=== PATIENT | female | born 1995 | race Caucasian/White ===

== ENCOUNTER 2024-12-19 10:02 | Emergency (ER) | payer OTHER, SELFPAY ==
--- OUTSIDE RECORDS SUMMARY | 2015-10-07 10:10 | XMS_ITS | Encounter Summary ---
Author Organization [place] [address] Care Team Providers Care Events Intern Name Role Phone Stef Mclean DO, Viral Primary Care Provider [phone] Encounter Details Date Type Department Care Team (Latest Contact Info) Description 10/07/2015 10:10 AM EDT Hospital Encounter [facility] [address] [place] [phone] Left without seen Social History Tobacco Use Types Packs/Day Years Used Date Smoking Tobacco: Never Passive Smoke Exposure: Never Smokeless Tobacco: Never Alcohol Use Standard Drinks/Week Comments Not Currently 0 (1 standard drink = 0.6 oz pur e alcohol) [facility] Utilities Answer Date Recorded In the past 12 months has [employer], gas, oil, or water [employer] threatened to shut off services in your home? No 07/01/2023 Overall Financial Resource Strain (CARDIA) Answe r Date Recorded How hard is it for you to pa y for the very basics like food, housing, medical care, and heating? Not very hard 07/01/2023 PHQ-2 Answer Date Recorded PHQ-2 Total Score 0 09/01/2024 [facility] [place] of Occupat ional Health - Occupational Stress Questionnaire Answer Date Recorded Do you feel stress - tense, restless, nervous, or anxious, or unable to sleep at night because your mind is troubled all the time - these days? Not at all 07/01/2023 Exercise Vital Sign Answer Date Recorde d On average, how many days pe r week do you engage in moderate to strenuous exercise (like a brisk walk)? 0 days 07/01/2023 On average, how many minutes do you engage in exercise at this level? 0 min 07/01/2023 Hunger Vital Sign Answer Date Recorded Within the past 12 months, y ou worried that your food would run out before you got the money to buy more. Never true 07/01/19 24 Within the past 12 months, t he food you bought just didn't last and you didn't have money to get more. Never true 07/01/2023 [facility] IP Transportation Answer D ate Recorded In the past 12 months, has l ack of reliable transportation kept you from medical appointments, meetings, work or from getting things needed for daily living? No 07/01/2023 Sexually Active Control Partners Comments Yes Male Comments No Sex and Gender Information Value Date Recorded Sex Assigned at Not on file Legal Sex Female 1:40 AM EDT Gender Identity Not on file Sexual Orientation Not on file COVID-19 Exposure Response Date Recorded In the last 10 days, have yo u been in contact with someone who was confirmed or suspected to have Coronavirus/COVID-19? No / Unsure 06/21/2023 9:31 AM EST documented as of this encounter Functional Status * Cognitive and Functional Status Question Answer Date of Assessment Author Is the person deaf or does h e/she have serious difficulty hearing? No 06/19/2024 8:05 AM EST J Carlos Ross ace, RMA Is the person blind or does he/she have serious difficulty seeing even when wearing glasses? No 06/19/2024 8:05 AM EST J Carlos Babcock RMA Does this person have seriou s difficulty walking or climbing stairs? No 06/19/2024 8:05 AM EST J Carlos Babcock R MA Does this person have diffic ulty dressing or bathing? No 06/19/2024 8:05 AM J Carlos Mendez RMA * Alcohol Screening Score Answer Date of Assessment Author 0 06/30/2023 2:56 PM EDT Gabby Patton RN * Drug Screening Score Answer Date of Assessment Author 0 06/30/2023 2:56 PM Gabby Soriano RN * Question Answer Date of Assessment Author How often do you have a drin k containing alcohol? 0 06/30/2023 2:56 PM Jerry Soriano RN How many drinks containing alcohol do you have on a typical day when you are drinking? 0 06/30/2023 2:56 PM Jerry Soriano RN How often do you have six or more drinks on one occasion? 0 06/30/2023 2:56 PM Gabby Hughes RN AUDIT-C to Determine Rows 4-10 0 06/30/2023 2:56 PM Gabby Soriano RN * Is the person deaf or does he/she have serious difficulty hearing? Answer Date of Assessment Author No 10/02/2015 1:08 AM Makayla Jeong RN * Is the person blind or does he/she have serious difficulty seeing even when wearing glasses? Answer Date of Assessment Author No 10/02/2015 1:08 AM Makayla Jeong RN * Does this person have serious difficulty walking or climbing stairs? Answer Date of Assessment Author No 10/02/2015 1:08 AM Makayla Jeong RN * Does this person have difficulty dressing or bathing? Answer Date of Assessment Author No 10/02/2015 1:08 AM Makayla Jeong RN * Because of a physical, mental or emotional condition, does this person have difficulty doing errands alone such as visiting a doctor's office or shopping? Answer Date of Assessment Author No 10/02/2015 1:08 AM Makayla Jeong RN * PHQ-9 Total Score Answer Date of Assessment Author 0 09/01/2024 8:59 AM Sol Eric RMA * Question Answer Date of Assessment Author Little interest or pleasure in doing things 0 09/01/2024 8:59 AM EDT Deyanira House RMA Feeling down, depressed, or hopeless 0 09/01/2024 8:59 AM EDT Sol House RMA PHQ-2 Total Score 0 09/01/2024 8:59 AM EDSol Richmond RMA Trouble falling or staying asleep, or sleeping too much 3 03/10/2024 8:06 AM Melany Calvin MA Feeling tired or having little energy 3 03/10/2024 8:06 AM Melany Calvin MA Poor appetite or overeating 3 03/10/2024 8:06 AM Melany Calvin MA Feeling bad about yourself - or that you are a failure or have let yourself or your family down 3 03/10/2024 8:06 AM Melany Calvin MA Trouble concentrating on things, such as reading the newspaper or watching television 3 03/10/2024 8:06 AM Melany Calvin MA Moving or speaking so slowly that other people could have noticed. Or the opposite - being so fidgety or restless that you have been moving around a lot more than usual 3 03/10/2024 8:06 AM Melany Calvin MA Thoughts that you would be better off , or of hurting yourself in some way 0 03/10/2024 8:06 AM Melany Calvin MA If you checked off any problems, how difficult have these problems made it for you to do your work, take care of things at home, or get along with other people? Extremely difficult 03/10/2024 8:06 AM Melany Calvin MA * Question Answer Date of Assessment Author Feeling Nervous, Anxious, or on Edge 0 09/01/2024 8:59 AM EDSol Richmond RMA Not Being Able to Stop or Control Worrying 0 09/01/2024 8:59 AM EDILMAT Sol House RMA Worrying too Much About Different Things 0 09/01/2024 8:59 AM EDILMAT Sol House RMA Trouble Relaxing 0 09/01/2024 8:59 AM EDT Sol Landry RMA Being so Restless That it is Hard to Sit Still 0 09/01/2024 8:59 AM EDT Sol House RMA Becoming Easily Annoyed or Irritable 0 09/01/2024 8:59 AM EDT Sol House RMA Feeling Afraid as if Something Awful Might Happen 0 09/01/2024 8:59 AM EDT Sol House RMA KAREEN-7 Total Score 0 09/01/2024 8:59 AM EDT Sol House RMA * Suicide Severity Rating Answer Date of Assessment Author No Risk 12/17/2024 1:26 PM EDT Nazia Sutton RN * [place] Suicide Severity Rating Scale (Q shift for moderate and high) Question Answer Date of Assessment Author 1. In the past month, have y ou wished you were or wished you could go to sleep and not wake up? 0 12/17/2024 1:26 PM EDT Nazia Sutton RN 2. In the past month, have y ou actually had any thoughts of killing yourself? (If no, skip to question 6) 0 12/17/2024 1:26 PM EDILMAT Nazia Sutton RN 6. Have you ever done anythi ng, started to do anything, or prepared to do anything to end your life? 0 12/17/2024 1:26 PM EDT Nazia Sutton RN documented as of this encounter Mental Status * Cognitive and Functional Status Question Answer Entry Date Author Because of a physical, menta l or emotional condition, does this person have difficulty doing errands alone such as visiting a doctor's office or shopping? No 06/19/2024 8:05 AM J Carlos Mendez RMA Because of a physical, menta l or emotional condition, does this person have serious difficulty concentrating, remembering or making decisions? No 06/19/2024 8:05 AM J Carlos Mendez R MA * Because of a physical, mental or emotional condition, does this person have serious difficulty concentrating, remembering or making decisions? Answer Entry Date Author No 10/02/2015 1:08 AM EDT Makayla Mills RN documented in this encounter Plan of Treatment Upcoming Encounters Date Type Department Care Team (Late st Contact Info) Description 12/27/2024 8:30 AM EDT Appointment [facility] [place] [address] Jessica Leach, L[employer] F[employer]ER [address] [place] [address] Marylu Gates PA-C [address] [facility] [address] [place] [address] 12/29/2024 8:40 AM EDT Office Visit [facility] [address] [facility] [address] [place] [id number] Jonathan Saldana, OD [address] [place] [address] 12/29/2024 3:00 PM EDT Appointment [facility] [address] [place], [place] [id number] Jessica Leach APRN [address] [place] [address] 03/09/2025 8:00 AM EST Office Visit [facility] [address] [facility] [place] [address] Jessica Leach APRN [address] [facility] [address] [place] [address] documented as of this encounter Goals Goal Patient Goal Type Associated Problems Recent Progress Patient-Stated? Author Blood Pressure < 140/90 Blood Pressure 100/60(2024 2:54 PM EDT) Gisselle Henderson, JESSA Maintain a healthy diet, exercise regularly and maintain an ideal body weight General No Sol House, RMMarlyn documented as of this encounter Visit Diagnoses Not on filedocumented in this encounter Additional Health Concerns Infection Onset Date Last Indicated Resolved Time R/O COVID-05/10/2021 05/10/2021 05/10/2021 9:26 PM EST COVID-19 05/10/2021 05/10/2021 06/09/2021 10:1 2 PM EST documented as of this encounter Care Teams Events Intern Relationship Specialty Start Date End Date Bharathi Finch DO [address] [place] [phone] PCP - General 12/16/10 05/18/16 documented as of this encounter
--- OUTSIDE RECORDS SUMMARY | 2024-11-29 08:00 | XMS_ITS | Encounter Summary ---
Author [place] [address] Care Team Providers Care Participant Administrator Name Role Phone Shameka Reese MD Primary Care Provider [phone] Reason for Referral * Consultation (Routine) - Authorization Not Needed Specialty Diagnoses / Procedures Referred By Vineet tanner Referred To Contact Neurology Diagnoses Migraine without aura and without status migrainosus, not intractable Procedures MD OFFICE/OUTPATIENT NEW MODERATE MDM 45 MINUTES Jim Bain APRN [address] [place] [address] Phone: tel: fax: [facility] Neurology [address] [place] [phone] Phone: tel: fax: Referral ID Status Reason Start Date Expiration Date Visits Requested Visits Authorized [id number] Authorization Not Needed 11/29/2024 11/29/2025 99 99 Reason for Visit * Reason Comments Annual Exam Anxiety Depression Gastroesophageal Reflux Migraine Seeking letter for m lilly and new neuro referral Weight Management Encounter Details Date Type Department Care Team (Late st Contact Info) Description 11/29/2024 8:00 AM EDT Office Visit [facility] [address] [phone] Jim Bain, CERTIFIED PERSONAL FINANCE COUNSELOR [address] [place] [address] Annual physical exam (Primary Dx); Migraine without aura and without status migrainosus, not intractable; PTSD (post-traumatic stress disorder); Nightmares; Adjustment disorder with mixed anxiety and depressed mood; Nausea; Obesity, Class III, BMI 40-49.9 (morbid obesity) Social History Tobacco Use Types Packs/Day Years Used Date Smoking Tobacco: Never Passive Smoke Exposure: Never Smokeless Tobacco: Never Alcohol Use Standard Drinks/Week Comments Not Currently 0 (1 standard drink = 0.6 oz pur e alcohol) [facility] Utilities Answer Date Recorded In the past 12 months has th e electric, gas, oil, or water company threatened to shut off services in your home? No 07/01/2023 Overall Financial Resource Strain (CARDIA) Answe r Date Recorded How hard is it for you to pa y for the very basics like food, housing, medical care, and heating? Not very hard 07/01/2023 PHQ-2 Answer Date Recorded PHQ-2 Total Score 0 09/01/2024 [facility] - Occupational Stress [...] money to get more. Never true 07/01/2023 [facility] IP Transportation Answer D ate Recorded [...] on file Sexual Orientation Not on file documented as of this encounter Last Filed Vital Signs Vital Sign Reading Time Taken Comments Blood Pressure 104/62 11/29/2024 7:48 AM EDT Pulse - - Temperature 36.8 C (98.2 F) 11/29/2024 7:48 AM EDT Respiratory Rate - - Oxygen Saturation - - Inhaled Oxygen Concentration - - Weight 100.2 kg (221 lb) 11/29/2024 7:48 AM EDT Height 149.9 cm (4' 11 ) 11/29/2024 7:48 AM EDT Body Mass Index 44.64 11/29/2024 7:48 AM EDT documented in this encounter Functional Status * Is the person deaf or does he/she have serious difficulty hearing? Answer Date of Assessment Author No 06/19/2024 8:05 AM J Carlos Mendez RMA * Is the person blind or does he/she have serious difficulty seeing even when wearing glasses? Answer Date of Assessment Author No 06/19/2024 8:05 AM J Carlos Mendez RMA * Does this person have serious difficulty walking or climbing stairs? Answer Date of Assessment Author No 06/19/2024 8:05 AM J Carlos Mendez RMA * Does this person have difficulty dressing or bathing? Answer Date of Assessment Author No 06/19/2024 8:05 AM J Carlos Mendez RMA * Because of a physical, mental or emotional condition, does this person have difficulty doing errands alone such as visiting a doctor's office or shopping? Answer Date of Assessment Author No 06/19/2024 8:05 AM J Carlos Mendez RMA documented as of this encounter Mental Status * Because of a physical, mental or emotional condition, does this person have serious difficulty concentrating, remembering or making decisions? Answer Entry Date Author No 06/19/2024 8:05 AM J Carlos Mendez RMA documented in this encounter Ordered Prescriptions Prescription Sig Dispense Quantity Refills Last Filled Start Date End Date ondansetron (ZOFRAN) 4 mg Oral TabletIndications: Nausea Take 1 Tablet by mouth every 4 hours as needed for Nausea. 60 Tablet 5 11/29/2024 desvenlafaxine succinate (PRISTIQ) 50 mg Oral Tablet Sustained Release 24 hrIndications:PTSD (post-traumatic stress disorder),Nightmar es,Adjustment disorder with mixed anxiety and depressed mood Take 1 Tablet by mouth daily. 90 Tablet 3 11/29/2024 busPIRone (BUSPAR) 10 mg Oral TabletIndications: PTSD (post-traumatic stress disorder),Nightmar es,Adjustment disorder with mixed anxiety and depressed mood Take 1 Tablet by mouth 2 times daily. For anxiety 60 Tablet 5 11/29/2024 tirzepatide, weight loss, 7.5 mg/0.5 mL SubQ SolutionIndication s:Obesity, Class III, BMI 40-49.9 (morbid obesity) Inject 7.5 mg under the skin once a week. 3 mL 1 11/29/2024 rimegepant (NURTEC ODT) 75 mg Oral Tablet, Rapid DissolveIndication s:Migraine without aura and without status migrainosus, not intractable Dissolve 1 Tablet by mouth every 48 hours. 18 Tablet 5 11/29/2024 5 documented in this encounter Progress Notes * Jim Bain APRN - 11/29/2024 8:00 AM EDT Vitals: 11/29/24 0748 BP: 104/62 Temp: 98.2 ??F (36.8 ??C) TempSrc: Forehead Weight: 221 lb (100.2 kg) Height: 4' 11 (1.499 m) Body mass index is 44.64 kg/m??. SUBJECTIVE: Chief Complaint Patient presents with Annual Exam Anxiety Depression Gastroesophageal Reflux Migraine Seeking letter for migraine and new neuro referral Weight Management HPI: Well Adult: Subjective Ms. Padgett is a 29 y.o. female here for an annual wellness visit. Diet: low calorie Exercise: walking, weight lifting Activities of Daily Living: Functional Level: Self-care ADL Limitations: none Social Interaction Screen: Do you have concerns about issues that may impact social interaction such as developmental or behavioral/mental health conditions? no Health Maintenance Due Topic Date Due COVID-19 Vaccine ( season) Never done Cervical Cancer Screening 04/09/2024 Health Maintenance Topic Date Due COVID-19 Vaccine () Never done Cervical Cancer Screening 04/09/2024 Influenza Vaccine (1) 12/18/2024 Annual Wellness Exam 03/10/2025 DTaP/TDaP/Td (9 - Td or Tdap) 06/15/2027 Hepatitis B Vaccine Completed Meningococcal B Vaccine Aged Out Pneumococcal Vaccine 0-49 Aged Out Immunization History Administered Date(s) Administered DTaP 1994, 1994, 1994, 03/25/1995, 03/22/1998 HPV Quadrivalent 07/16/2008, 10/25/2008, 05/23/2012 Hepatitis B, Unspecified Formulation 1994, 1994, 1994 HiB, Unspecified Formulation 1994, 1994, 1994, 03/25/1995 IPV 1994, 1994, 1994, 03/22/1998 Influenza Vaccine, Unspecified Formulation 01/18/2010 MMR 03/25/1995, 03/22/1998, 08/14/2017 Td, Unspecified Formulation 10/13/2004 Tdap 08/30/2015, 10/09/2015, 11/08/2015, 06/15/2017 Patient Active Problem List Diagnosis PCOS (polycystic ovarian syndrome) Morbid obesity with BMI of 50.0-59.9, adult (HCC) ASD (atrial septal defect) Sinus tachycardia Renal calculus, right Hydronephrosis of right kidney Pyelonephritis Thyroid cyst Supervision of other normal , antepartum History of shoulder dystocia in prior History of Hx of maternal laceration, 4th degree, currently History of gestational hypertension Maternal congenital cardiac anomaly, antepartum Uterine contractions Normal labor and delivery Gestational hypertension, third trimester Single delivery by section Ureter, calculus Dietary counseling and surveillance Morbid obesity (HCC) S/P laparoscopic sleeve gastrectomy Gastroesophageal reflux disease without esophagitis Past Medical History: Diagnosis Date ASD (atrial septal defect) 06/01/2017 resolved Depression GERD (gastroesophageal reflux disease) Other seasonal allergic rhinitis PCOS (polycystic ovarian syndrome) Pneumonia 03/11 Renal calculus, right 11/19/2017 Urinary tract infection history of Vulval or perineal trauma during delivery with problem 05/25/2017 Past Surgical History: Procedure Laterality Date SECTION N/A 08/12/2017 PRIMARY SECTION VIA LOW TRANSVERSE UTERINE INCISION AT 1542; Surgeon: iLsa Hannon MD; Location: [facility]; Service: Gynecology SECTION N/A 10/05/2021 REPEAT SECTION. skin incision at 1037, uterine at 1040, delivered at 1041, placenta [id number].; Surgeon: Marline Byrnes MD; Location: [facility]; Service: Obstetrics CYSTOSCOPY Right 11/19/2017 CYSTOSCOPY RIGHT STENT INSERTION; Surgeon: Sam Daily MD; Location: [facility]; Service: Urology CYSTOSCOPY Right 12/25/2021 cystoscopy right stent removal ; Surgeon: Juan Mackenzie MD; Location: [facility]; Service:Urology GASTRECTOMY N/A 06/30/2023 Robotic sleeve gastrectomy; Surgeon: Lula Ruvalcaba MD; Location: [facility]; Service: General TONSILLECTOMY 2000 TONSILLECTOMY 2003 VAGINA SURGERY 11/06/2015 repair of third degree obstetrical laceration Allergies Allergen Reactions Suprax [Cefixime] Hives Brethine [Terbutaline] Palpitations It made me out of it Nsaids (Non-Steroidal Anti-Inflammatory Drug) Other (See Comments) HX GASTRIC SLEEVE! Current Outpatient Medications on File Prior to Visit Medication Sig Dispense Refill albuterol (PROVENTIL HFA;VENTOLIN HFA) 90 mcg/actuation Inhl HFA Aerosol Inhaler Inhale 2 Puffs into the lungs every 4 hours as needed for Wheezing. 1 Each 2 ergocalciferol (VITAMIN D) 1,250 mcg (50,000 unit) Oral Capsule Take 1 Capsule by mouth once a week. 12 Capsule 3 MULTIVITAMIN ORAL Take by mouth. pantoprazole (PROTONIX) 40 mg Oral Tablet, Delayed Release (E.C.) Take 1 Tablet by mouth 2 times daily. 180 Tablet 2 No current facility-administered medications on file prior to visit. Social History Socioeconomic History Marital status: Spouse name: None Number of children: None Years of education: None Highest education level: None Tobacco Use Smoking status: Never Passive exposure: Never Smokeless tobacco: Never Vaping Use Vaping status: Never Used Substance and Sexual Activity Alcohol use: Not Currently Drug use: No Sexual activity: Yes Partners: Male Social History Narrative Merged History Encounter Social Drivers of Health Financial Resource Strain: Low Risk (07/01/2023) Overall Financial Resource Strain (CARDIA) Difficulty of Paying Living Expenses: Not very hard Food Insecurity: No Food Insecurity (07/01/2023) Hunger Vital Sign Worried About Running Out of Food in the Last Year: Never true Ran Out of Food in the Last Year: Never true Transportation Needs: No Transportation Needs (07/01/2023) [facility] IP Transportation In the past 12 months, has lack of reliable transportation kept you from medical appointments, meetings, work or from getting things needed for daily living?: No Physical Activity: Inactive (07/01/2023) Exercise Vital Sign Days of Exercise per Week: 0 days Minutes of Exercise per Session: 0 min Stress: No Stress Concern Present (07/01/2023) [facility] - Occupational Stress Questionnaire Feeling of Stress : Not at all Received from [facility] Intimate Partner Violence Family History Problem Relation Age of Onset Eclampsia Mother Spont Abortions Mother Stroke Mother Diabetes Father Hypertension Father Mult Sclerosis Maternal Grandfather Depression Paternal Grandmother brain ca Cancer Paternal Grandmother Diabetes Paternal Grandfather Heart Disease Paternal Grandfather Anesth Problems Neg Hx No results found. No results found for this visit on 11/29/24. Patient Care Team: Shameka Reese MD as PCP - General (Family Medicine) Lab Results Component Value Date WBC 3.6 (L) 11/12/2023 HGB 14.4 11/12/2023 HCT 43.1 11/12/2023 PLT 229 11/12/2023 CHOLESTEROL 172 01/14/2023 TRIG 124 01/14/2023 HDL 32 (L) 01/14/2023 LDLCALC 117 (H) 01/14/2023 ALT 21 11/12/2023 AST 19 11/12/2023 NA 138 11/12/2023 K 4.1 11/12/2023 CL 108 (H) 11/12/2023 CREATININE 0.67 11/12/2023 BUN 11 11/12/2023 CO2 21 (L) 11/12/2023 TSH 1.930 04/09/2023 INR 0.92 10/04/2021 GLU 102 (H) 11/12/2023 HGBA1C 5.2 01/14/2023 TSHREFLEX 2.600 04/30/2022 Additional issues addressed today: MIGRAINE Acute migraine last 1-2 day. Photophobia and nausea. Pain is sharp. Pain severe and constant. Med'sno help. Pain better in dark. ANXIETY Anxiety is relatively controlled. Mood is stable. Sleep is stable. No SI/HI. DEPRESSION Depression is relatively stable. Mood is stable. Sleep is stable. No SI/HI. WEIGHT MANAGEMENT Wt Readings from Last 3 Encounters: 11/29/24 221 lb (100.2 kg) 10/06/24 229 lb (103.9 kg) 09/01/24 229 lb (103.9 kg) Review of Systems Constitutional: Negative for chills and fever. HENT: Negative for congestion, ear discharge and ear pain. Eyes: Negative for pain, discharge and itching. Respiratory: Negative for cough, shortness of breath and wheezing. Cardiovascular: Negative for chest pain and palpitations. Gastrointestinal: Negative for abdominal distention and abdominal pain. Genitourinary: Negative for difficulty urinating, dysuria and hematuria. Musculoskeletal: Negative for arthralgias, back pain and gait problem. Skin: Negative for rash and wound. Neurological: Positive for headaches. Negative for dizziness and light-headedness. Psychiatric/Behavioral: The patient is not nervous/anxious. OBJECTIVE: Physical Exam Constitutional: General: She is not in acute distress. Appearance: She is well-developed. She is not diaphoretic. HENT: Head: Normocephalic and atraumatic. Right Ear: External ear normal. Left Ear: External ear normal. Nose: Nose normal. Mouth/Throat: Pharynx: No oropharyngeal exudate. Eyes: General: Right eye: No discharge. Left eye: No discharge. Conjunctiva/sclera: Conjunctivae normal. Pupils: Pupils are equal, round, and reactive to light. Neck: Vascular: No JVD. Cardiovascular: Rate and Rhythm: Normal rate and regular rhythm. Heart sounds: Normal heart sounds. No murmur heard. Pulmonary: Effort: Pulmonary effort is normal. No respiratory distress. Breath sounds: Normal breath sounds. No wheezing or rales. Chest: Chest wall: No tenderness. Abdominal: General: Bowel sounds are normal. There is no distension. Palpations: Abdomen is soft. There is no mass. Tenderness: There is no abdominal tenderness. There is no guarding or rebound. Musculoskeletal: General: Normal range of motion. Cervical back: Normal range of motion and neck supple. Skin: General: Skin is warm and dry. Findings: No rash. Neurological: Mental Status: She is alert and oriented to person, place, and time. Psychiatric: Behavior: Behavior normal. Thought Content: Thought content normal. Judgment: Judgment normal. Assessment & Plan Annual physical exam Orders: CBC; Future COMPREHENSIVE METABOLIC PANEL; Future HEMOGLOBIN A1C; Future LIPID SCREEN; Future THYROID STIMULATING HORMONE; Future Migraine without aura and without status migrainosus, not intractable Orders: rimegepant (NURTEC ODT) 75 mg Oral Tablet, Rapid Dissolve; Dissolve 1 Tablet by mouth every 48 hours. AMB REFERRAL TO NEUROLOGY ketorolac (TORADOL) injection 60 mg PTSD (post-traumatic stress disorder) -Stable. Continue meds. Orders: busPIRone (BUSPAR) 10 mg Oral Tablet; Take 1 Tablet by mouth 2 times daily. For anxiety desvenlafaxine succinate (PRISTIQ) 50 mg Oral Tablet Sustained Release 24 hr; Take 1 Tablet by mouth daily. Nightmares Orders: busPIRone (BUSPAR) 10 mg Oral Tablet; Take 1 Tablet by mouth 2 times daily. For anxiety desvenlafaxine succinate (PRISTIQ) 50 mg Oral Tablet Sustained Release 24 hr; Take 1 Tablet by mouth daily. Adjustment disorder with mixed anxiety and depressed mood Orders: busPIRone (BUSPAR) 10 mg Oral Tablet; Take 1 Tablet by mouth 2 times daily. For anxiety desvenlafaxine succinate (PRISTIQ) 50 mg Oral Tablet Sustained Release 24 hr; Take 1 Tablet by mouth daily. Nausea Orders: ondansetron (ZOFRAN) 4 mg Oral Tablet; Take 1 Tablet by mouth every 4 hours as needed for Nausea. Obesity, Class III, BMI 40-49.9 (morbid obesity) Orders: tirzepatide, weight loss, 7.5 mg/0.5 mL SubQ Solution; Inject 7.5 mg under the skin once a week. -Patient with history of recurrent migraines, would benefit from working from home. documented in this encounter Miscellaneous Notes * Addendum Note - Digna Sun MA - 11/29/2024 8:00 AM EDTAddended by: DIGNA SUN on: 11/29/2024 03:17 PM Modules accepted: Orders documented in this encounter Plan of Treatment Upcoming Encounters Date Type Department Care Team (Late st Contact Info) Description 12/27/2024 8:30 AM EDT Appointment [facility] [address] [place], [place] [id number] Jessica Leach, CERTIFIED PERSONAL FINANCE COUNSELOR [address] [facility] [address] [place] [address] Marylu Gates PA-C [address] [facility] [address] [place] [address] 12/29/2024 8:40 AM EDT Office Visit [facility] [address] [place] [address] [place] [phone] Jonathan Saldana, OD [address] [place], [place] [id number] 12/29/2024 3:00 PM EDT Appointment [facility] [address] [place] [address] Jessica Leach, CERTIFIED PERSONAL FINANCE COUNSELOR [address] [facility] [address] [place], [place] [phone] 03/09/2025 8:00 AM EST Office Visit [facility] [address] [place], [place] [id number] Jessica Leach, CERTIFIED PERSONAL FINANCE COUNSELOR [address] [id number] Scheduled Referrals Name Type Priority Associated Diagnoses Orde r Schedule AMB REFERRAL TO NEUROLOGY Outpatient Referral Routine Migraine without aura and without status migrainosus, not intractable Ordered: 11/29/2024 documented as of this encounter Goals Goal Patient Goal Type Associated Problems Recent Progress Patient-Stated? Author Blood Pressure < 140/90 Blood Pressure 100/60(2024 2:54 PM EDT) Gisselle [place] CCMA Maintain a healthy diet, exercise regularly and maintain an ideal body weight General [facility] RMA documented as of this encounter Procedures Procedure Name Priority Date/Time Associated Diagnosis Comments CBC Routine 11/29/2024 8:17 AM EDT Annual physical exam THYROID STIMULATING HORMONE Routine 11/29/2024 8:17 AM EDT Annual physical exam HEMOGLOBIN A1C Routine 11/29/2024 8:17 AM EDT Annual physical exam LIPID SCREEN Routine 11/29/2024 8:17 AM EDT Annual physical exam COMPREHENSIVE METABOLIC PANEL Routine 11/29/2024 8:17 AM EDT Annual physical exam documented in this encounter Results * THYROID STIMULATING HORMONE (11/29/2024 8:17 AM EDT) TSH 1.690 0.270 - 4.200 mcIU/mL 11/29/2024 6:23 PM EDT [facility] Blood VENOUS BLOOD / Unknown Venipuncture / Unknown 11/29/2024 8:17 AM EDT 11/29/2024 8:17 AM EDT Narrative [facility] - 11/29/2024 6:23 PM EDT Ingestion of abhinav doses of biotin (>5 mg/day) taken within 8 hours of drawing blood sample can interfere with this immunoassay test. us Jim Bain APRN CHEMISTRY ORDERABLES Final R es[facility] [address] [facility] , [place] [address] * (ABNORMAL) LIPID SCREEN (11/29/2024 8:17 AM EDT) Cholesterol 184 <200 mg/dL 11/29/2024 6:[address] [facility] Comment: < 200 Desirable 200 - 239 Borderline High >= 240 High Triglyceride 64 <150 mg/dL 11/29/2024 6:[address] [facility] Comment: < 150 Normal 150 - 199 Borderline High 200 - 499 High >= 500 Very High HDL 37(L) >=40 mg/dL 11/29/2024 6:23 PM EDT [facility] Comment: > 60 Optimal 40 - 60 Acceptable < 40 Low LDL Calculated 135(H) <100 mg/dL 11/29/2024 6:23 PM EDT [facility] Comment: < 100 Optimal 100 - 129 Near or above optimal 130 - 159 Borderline High 160 - 189 High >= 190 Very High The National Institutes of Health (NIH) equation is used for all lipid panels that report calculated LDL (LDL-C). Non-HDL-C Calculated 147(H) <=129 mg/dL 11/29/2024 6:23 PM EDT [facility] Comment: <130 Desirable 130-159 Above Desirable 160-189 Borderline High 190-219 High >= 220 Very High Fasting Specimen? Unknown None 025 6:23 PM EDT [facility] Blood VENOUS BLOOD / Unknown Venipuncture / Unknown 11/29/2024 8:17 AM EDT 11/29/2024 8:17 AM EDT Jim Bain CERTIFIED PERSONAL FINANCE COUNSELOR CHEMISTRY ORDERABLES Final R esult [facility] [address] [facility] , [place] [address] * HEMOGLOBIN A1C (11/29/2024 8:17 AM EDT) Hgb A1C 4.8 4.2 - 5.6 % 11/29/2024 5:12 PM EDT [facility] Est. Avg Glucose 91 mg/dL 11/29/2024 5:12 PM EDT [facility] Blood VENOUS BLOOD / Unknown Venipuncture / Unknown 11/29/2024 8:17 AM EDT 11/29/2024 8:17 AM EDT Narrative [facility] - 11/29/2024 5:12 PM EDT REFERENCE RANGE: Normal: 4.0-5.6% Pre-diabetes: 5.7-6.4% Provisional diagnosis of diabetes: >6.4% Hgb F>10% and anything which shortens red cell survival, such as hemolytic anemia, or unstable hemoglobin variants such as HbSS, HbSC, or HbCC, will lower the HbA1c value associated with a given level of glycemic control. us Jim Bain CERTIFIED PERSONAL FINANCE COUNSELOR CHEMISTRY ORDERABLES Final R esult [facility] [address] [facility] , [address] [place] [id number] * COMPREHENSIVE METABOLIC PANEL (11/29/2024 8:17 AM EDT) Sodium 137 136 - 145 mmol/L 11/29/2024 6:23 PM EDT [facility] Potassium 3.8 3.5 - 5.0 mmol/L 11/29/2024 6:23 PM EDT [facility] Chloride 103 98 - 107 mmol/L 11/29/2024 6:23 PM EDT [facility] Total CO2 23 22 - 29 mmol/L 11/29/2024 6:23 PM EDT [facility] Anion Gap 11 7 - 16 mmol/L 11/29/2024 6:23 PM EDT [facility] Calcium 8.8 8.6 - 10.4 mg/dL 11/29/2024 6:23 PM EDT [facility] Glucose Lvl 72 70 - 99 mg/dL 11/29/2024 6:23 PM EDT [facility] BUN 8 6 - 20 mg/dL 11/29/2024 6:23 PM EDT [facility] Creatinine 0.78 0.51 - 1.30 mg/dL 11/29/2024 6:23 PM EDT [facility] Albumin 4.1 3.5 - 5.2 gm/dL 11/29/2024 6:23 PM EDT [facility] Total Protein 6.9 6.4 - 8.3 gm/dL 11/29/2024 6:23 PM EDT [facility] Bili Total 0.6 0.2 - 1.3 mg/dL 11/29/2024 6:23 PM EDT [facility] ALT 8 <=41 U/L 11/29/2024 6:23 PM EDT [facility] AST 17 <=40 U/L 11/29/2024 6:23 PM EDT [facility] Alk Phos 57 36 - 123 U/L 11/29/2024 6:23 PM EDT [facility] eGFR (CKD-EPIcr 2020) 104 >=60 mL/min/1.7 3 m2 11/29/2024 6:23 PM EDT [facility] Comment:Estimated GFR was ca lculated using the CKD-EPIcr (2020) equation refit without race. The equation is recommended by the National Kidney Foundation - [employer] [employer] Neph[employer] Task Force. Blood VENOUS BLOOD / Unknown Venipuncture / Unknown 11/29/2024 8:17 AM EDT 11/29/2024 8:17 AM EDT us Jim Bain CERTIFIED PERSONAL FINANCE COUNSELOR CHEMISTRY ORDERABLES Final R esult [facility] [address] [facility] , [place] [address] * CBC (11/29/2024 8:17 AM EDT) WBC 4.6 3.7 - 10.3 x10(3)/mcL 11/29/2024 4:50 PM EDT [facility] RBC 4.55 3.90 - 5.20 x10(6)/mcL 11/29/2024 4:50 PM EDT [facility] Hgb 13.7 11.2 - 15.7 g/dL 11/29/2024 4:50 PM EDT [facility] Hct 41.9 34.0 - 45.0 % 11/29/2024 4:50 PM EDT [facility] MCV 92.1 80.0 - 100.0 fL 11/29/2024 4:50 PM EDT [facility] MCH 30.1 26.0 - 34.0 pg 11/29/2024 4:50 PM EDT [facility] MCHC 32.7 30.7 - 35.5 g/dL 11/29/2024 4:50 PM EDT [facility] RDW 12.4 <=14.9 % 11/29/2024 4:50 PM EDT [facility] Platelet 241 155 - 369 x10(3)/mcL 11/29/2024 4:50 PM EDT [facility] MPV 10.5 8.8 - 12.5 fL 11/29/2024 4:50 PM EDT [facility] Blood VENOUS BLOOD / Unknown Venipuncture / Unknown 11/29/2024 8:17 AM EDT 11/29/2024 8:17 AM EDT Jim Bain CERTIFIED PERSONAL FINANCE COUNSELOR HEMATOLOGY ORDERABLES Final Result [facility] [address] [facility] , [place] [address] documented in this encounter Visit Diagnoses Diagnosis Annual physical exam- Primary Routine general medical examination at a health care facility Migraine without aura and without status migrainosus, not intractable Migraine without aura, without mention of intractable migraine without mention of status migrainosus PTSD (post-traumatic stress disorder) Posttraumatic stress disorder Nightmares Other dysfunctions of sleep stages or arousal from sleep Adjustment disorder with mixed anxiety and depressed mood Nausea Nausea alone Obesity, Class III, BMI 40-49.9 (morbid obesity) Morbid obesity documented in this encounter Administered Medications Inactive Administered Medications - up to 1 most recent administrations Medication Order MAR Action Action Date Dose Rate Site ketorolac (TORADOL) injection 60 mg 60 mg, Intramuscular, ONCE, 1 dose, On Wed11/29/24 at 0815, For IM Administration: Give undiluted, slowly and deeply into the muscle., Dx: 1. Migraine without aura and without status migrainosus, not intractableIndications:M igraine without aura and without status migrainosus, not intractable Given 11/29/2024 8:18 AM EDT 60 mg Right Upper Outer Quadrant documented in this encounter Discontinued Medications Medication Sig Discontinue Reason Start Date End Da te tirzepatide, weight loss, (ZEPBOUND) 5 mg/0.5 mL SubQ Pen Injector Inject 5 mg under the skin once a week. Dose adjustment 10/30/2024 11/29/2024 busPIRone (BUSPAR) 10 mg Oral TabletIndications:PTSD (post-traumatic stress disorder),Nightmares,Adj ustment disorder with mixed anxiety and depressed mood Take 1 Tablet by mouth 2 times daily. For anxiety Reorder 08/24/2024 11/29/2024 desvenlafaxine succinate (PRISTIQ) 50 mg Oral Tablet Sustained Release 24 hrIndications:PTSD (post-traumatic stress disorder),Nightmares,Adj ustment disorder with mixed anxiety and depressed mood Take 1 Tablet by mouth daily. Reorder 08/24/2024 11/29/2024 ondansetron (ZOFRAN) 4 mg Oral TabletIndications:Nausea Take 1 Tablet by mouth every 4 hours as needed for Nausea. Reorder 10/06/2024 11/29/2024 rimegepant (NURTEC ODT) 75 mg Oral Tablet, Rapid DissolveIndications:Migr shauna without aura and without status migrainosus, not intractable Dissolve 1 Tablet by mouth every 48 hours. Reorder 10/06/2024 11/29/2024 documented as of this encounter Historical Medications * This list may reflect changes made after this encounter. ZEPBOUND 5 mg/0.5 mL SubQ Pen Injector Inject 5 mg under the skin once a week. 11/01/2024 added in this encounter Care Teams Participant Administrator Relationship Specialty Start Date End Date Shameka Reese MD [address] [place] [address] PCP - General Family Medicine 05/19/16 documented as of this encounter
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
--- OUTSIDE RECORDS SUMMARY | 2024-12-17 13:26 | XMS_ITS | Encounter Summary ---
Author Organization 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 [address] Nina Amaral MD [address] [place] [address] Pyelonephritis (Primary Dx) Discharge Disposition: Home or Self Care Social History Tobacco Use Types Packs/Day Years Used Date Smoking Tobacco: Never Passive Smoke Exposure: Never Smokeless Tobacco: Never Alcohol Use Standard Drinks/Week Comments Not Currently 0 (1 standard drink = 0.6 oz pur e alcohol) [facility] Utilities Answer Date Recorded In the past 12 months has [employer] electric, gas, oil, or water company threatened to shut off services in your home? No 07/01/2023 Overall Financial Resource Strain (CARDIA) Answe r Date Recorded How hard is it for you to pa y for the very basics like food, housing, medical care, and heating? Not very hard 07/01/2023 PHQ-2 Answer Date Recorded PHQ-2 Total Score 0 09/01/2024 [facility] - Occupational Stress [...] Never true 07/01/2023 [facility] IP Transportation Answer D ate Recorded [...] 1:26 PM EDT Nazia Sutton RN * [place] Suicide Severity Rating Scale (Q shift for [...] daily. For anxiety 60 Tablet 5 11/29/2024 ciprofloxacin HCl (CIPRO) 500 mg Oral Tablet Take 1 Tablet by mouth 2 times daily for 10 days. 20 Tablet 12/17/2024 12/27/2024 desvenlafaxine succinate (PRISTIQ) 50 mg Oral Tablet [...] needed for Nausea. 60 Tablet 5 11/29/2024 oxyCODONE-acetami nophen (PERCOCET) 5-325 mg Oral Tablet Take 1 Tablet by mouth every 6 hours as needed for Acute Pain (R52) for up to 3 days. 12 Tablet 12/17/2024 12/20/2024 pantoprazole (PROTONIX) 40 mg Oral Tablet, Delayed [...] under the skin once a week. 11/01/2024 documented as of this encounter Ordered Prescriptions [...] Means Destination Comment s Home or Self Shelter documented in this encounter ED Notes * Nasir Lacy, ROLL ON MAN - 12/17/2024 1:22 PM EDT CHIEF COMPLAINT Chief Complaint Patient presents with Flank Pain Right started yesterday and has h/o renal stones/ no dysuria/ tried Tylenol three hours IMAGER HPI Marleni Padgett is a 29 y.o. [...] true Transportation Needs: No Transportation Needs (07/01/2023) [facility] IP Transportation In the past 12 months, has lack of reliable transportation kept you from medical appointments, meetings, work or from getting things needed for daily living?: No Physical Activity: Inactive (07/01/2023) Exercise Vital Sign Days of Exercise per Week: 0 days Minutes of Exercise per Session: 0 min Stress: No Stress Concern Present (07/01/2023) [facility] [place] [facility] - Occupational Stress Questionnaire Feeling of Stress : Not at all Received from [facility] Intimate Partner Violence SURGICAL HISTORY Past Surgical History: Procedure Laterality Date SECTION N/A 08/12/2017 PRIMARY SECTION VIA LOW TRANSVERSE UTERINE INCISION AT 1542; Surgeon: Lisa Hannon MD; Location: [facility]; Service: Gynecology SECTION N/A 10/05/2021 REPEAT SECTION. skin incision at 1037, uterine at 1040, delivered at 1041, placenta [id number].; Surgeon: Marline Byrnes MD; Location: [facility]; Service: Obstetrics CYSTOSCOPY Right 11/19/2017 CYSTOSCOPY RIGHT STENT INSERTION; Surgeon: Sam Daily MD; Location: [facility]; Service: Urology CYSTOSCOPY Right 12/25/2021 cystoscopy right stent removal ; Surgeon: Juan Mackenzie MD; Location: [facility]; Service:Urology GASTRECTOMY N/A 06/30/2023 Robotic sleeve gastrectomy; Surgeon: Lula Ruvalcaba MD; Location: [facility]; Service: General TONSILLECTOMY 2000 [...] REFLEX - Abnormal Result Value UA Color [place] UA Appear Slightly Cloudy (*) UA Glucose [...] CULTURE. Procedure Abnormality Status --------- ------ URINALYSIS REFLEX[[id number]] Abnormal Final result EXTRA MARIE URINE CX[[id number]] In process Please view results for these [...] 12/27/2024 8:30 AM EDT Appointment [facility] [address], [place] [id number] Jessica Leach, ROLL ON MAN [address] [place] [address] Marylu Gates PA-C [address] [facility] [address] [place], [place] [id number] 12/29/2024 8:40 AM EDT Office Visit [facility] Ophthalmology [facility] [address] [place] [address] [address] [place] [address] Jonathan Saldana, OD [address] [facility] [address] [place] [address] 12/29/2024 3:00 PM EDT Appointment [facility] [address] [place], [place] [id number] Jessica Leach, ROLL ON MAN [address] [place] [address] 03/09/2025 8:00 AM EST Office Visit [facility] [address] [place], [place] [id number] Jessica Leach, RO[employer] ON MAN [address] [place], [place] [id number] documented as of this encounter Goals Goal Patient Goal Type Associated Problems Recent Progress Patient-Stated? Author Blood Pressure < 140/90 Blood Pressure 100/60(2024 2:54 PM EDT) Gisselle Henderson CCMA Maintain a healthy diet, exercise regularly and maintain an ideal body weight General Sol Handy RMA documented as of this encounter Procedures [...] <1 <5 mIU/mL 12/17/2024 2:28 PM EDT [facility] Blood VENOUS BLOOD / Unknown Venipuncture / Unknown 12/17/2024 2:07 PM EDT 12/17/2024 2:09 PM EDT Narrative [facility] - 12/17/2024 2:28 PM EDT Female [...] with this immunoassay test. us Nasir Lacy ROLL ON MAN CHEMISTRY ORDERABLES Final R esult [facility] [address] [place] [address] * BASIC METABOLIC PANEL (12/17/2024 2:07 PM EDT) Sodium 138 136 - 145 mmol/L 12/17/2024 2:24 PM EDT [facility] Potassium 3.9 3.5 - 5.0 mmol/L 12/17/2024 2:24 PM EDT [facility] Chloride 103 98 - 107 mmol/L 12/17/2024 2:24 PM EDT [facility] Total CO2 23 22 - 29 mmol/L 12/17/2024 2:24 PM EDT [facility] Anion Gap 12 7 - 16 mmol/L 12/17/2024 2:24 PM EDT [facility] Calcium 9.0 8.6 - 10.4 mg/dL 12/17/2024 2:24 PM EDT [facility] Glucose Lvl 96 70 - 99 mg/dL 12/17/2024 2:24 PM EDT [facility] BUN 10 6 - 20 mg/dL 12/17/2024 2:24 PM EDT [facility] Creatinine 0.79 0.51 - 1.30 mg/dL 12/17/2024 2:24 PM EDT [facility] eGFR (CKD-EPIcr 2020) 103 >=60 mL/min/1.7 3 m2 12/17/2024 2:24 PM EDT [facility] Comment:Estimated GFR was ca lculated using the CKD-EPIcr (2020) equation refit without race. The equation is recommended by the National Kidney Foundation - [place] [employer] of Nephrology Task Force. Blood VENOUS BLOOD / Unknown Venipuncture / Unknown 12/17/2024 2:07 PM EDT 12/17/2024 2:09 PM EDT Nasir Lacy APRN CHEMISTRY ORDERABLES Final R esult [facility] [address] [place] [address] * (ABNORMAL) URINE CULTURE (NO STAIN) (12/17/2024 1:56 PM EDT) Culture Positive Growth(A) 12/19/2024 11:01 AM EDT [facility]REFERRED [facility] [employer] Culture >100,000 CFU/mL Klebsiella pneumoniae SUSCEPTIBI LITY RESULT 12/19/2024 11:01 AM EDT PREFERRED [facility] [facility] [employer] Urine STRUCTURE OF URINARY TRACT PROPER / [...] Trimethoprim/Sulfameth oxazole SUSCEPTIBILITY RESULT <=0.5/9.5 ug/mL: Susceptible us Nasir Lacy [employer]LL [employer] MAN MICROBIOLOGY - GENERAL ORDER KIANA Final Result [facility] [address] [facility] , [address] [place] [address] * EXTRA MARIE URINE CX (12/17/2024 1:56 PM EDT) Urine STRUCTURE OF URINARY TRACT PROPER / Unknown 12/17/2024 1:56 PM EDT 12/17/2024 1:58 PM EDT us Nasir Lacy APRN MICROBIOLOGY - GENERAL ORDER KIANA Final Result [facility] [address] [place] [address] * (ABNORMAL) URINALYSIS REFLEX (12/17/2024 1:56 PM EDT) UA Color [place] 12/17/2024 2:08 PM EDT [facility] UA Appear Slightly Cloudy(A) Clear 12/17/2024 2:08 PM EDT [facility] UA Glucose Negative Negative mg/dL 12/17/2024 2:08 PM EDT [facility] UA Ketones Trace (5 mg/dL)(A) Negative mg/dL 12/17/2024 2:08 PM EDT [facility] UA Blood Large(A) Negative 12/17/2024 2:08 PM EDT [facility] UA pH 6.0 5.0 - 8.0 pH 12/17/2024 2:08 PM EDT [facility] UA Protein >=300(A) Negative mg/dL 12/17/2024 2:08 PM EDT [facility] UA Urobilinogen 2.0(A) <=1 mg/dL 2:08 PM EDT [facility] UA Bili 12/17/2024 2:08 PM EDT [facility] Comment:Unable to report. Ca nnot rule out interfering substances that may yield false positive results. Consider correlation with serum bilirubin result. UA Nitrite Positive(A) Negative 12/17/2024 2:08 PM EDT [facility] UA Leuk Est Small(A) Negative 12/17/2024 2:08 PM EDT [facility] UA Spec Grav >=1.030 1.001 - 1.035 no units 12/17/2024 2:08 PM EDT [facility] Comment:Reference range tobias d for random specimens only. UA WBC 30(H) 0 - 4 /HPF 12/17/2024 2:08 PM EDT [facility] UA RBC 12(H) 0 - 3 /HPF 12/17/2024 2:08 PM EDT [facility] UA Squam Epi 2+ /LPF 12/17/2024 2:08 PM EDT [facility] UA Mucus 1+ /LPF 12/17/2024 2:08 PM EDT [facility] UA Amorph 1+ /HPF 12/17/2024 2:08 PM EDT [facility] UA Bacteria 1+(A) Negative /HPF 12/17/2024 2:08 PM EDT [facility] Urine STRUCTURE OF URINARY TRACT PROPER / Unknown 12/17/2024 1:56 PM EDT 12/17/2024 1:58 PM EDT us Nasir Lacy APRN URINE ORDERABLES Final Resul t [facility] [address] [place] [id number] documented in this encounter Visit Diagnoses Diagnosis [...] RN) documented in this encounter Care Teams Iron Plastic Bullet Maker Relationship Specialty Start Date End Date Shameka Reese MD [address] [place] [address] PCP - General Family Medicine 05/19/16 documented as of this encounter
[2024-12-19] VITALS (7 sets, daily range): BP systolic 119–139; BP diastolic 72–85; PULSE 96–112; RESP 16–18; TEMP 36.7–37.7; O2SAT 94–98; BMI 43.2
[2024-12-19 10:16] LABS: Microscopic, Urine URINE MICROSCOPIC (MICROSCOPIC)
[2024-12-19 10:20] LABS: Color,Urine YELLOW (Yellow); Glucose,Urine (UA) Negative (Negative); Ketones,Urine 3+ (Negative); Leukocyte Esterase,Urine TRACE (Negative); PH,Urine 6.0 (5.0-8.5); Protein,Urine 1+ (Negative); Specific Gravity, Urine >= 1.030 (1.005-1.030); Urobilinogen,Urine 0.2 EU/dl (0.2)
[2024-12-19 10:21] LABS: Bilirubin,Urine 1+ (Negative)
--- NOTE | 2024-12-19 10:29 | CT_ITS ---
FINAL REPORT CLINICAL HISTORY: right flank/RUQ abd pain, stone vs other process COMPARISON: None FINDINGS: Scarring is noted at the lung bases. The liver is homogeneous. The gallbladder is normal. The spleen, pancreas, and adrenal glands are unremarkable. There are multiple bilateral nonobstructing kidney stones. Individual stones measure up to 8 mm. There is mild right hydronephrosis and hydroureter. However, no definite obstructing distal right ureteral stone visualized. The urinary bladder is decompressed. The appendix is unremarkable. There is no pelvic free fluid. IMPRESSION: Bilateral kidney stones measuring up to 8 mm. Mild right hydronephrosis with stranding along the right ureter, probably due to recently passed kidney stone. Reviewed, Interpreted and Dictated by Cuauhtemoc Aldrich MD Transcribed by Lizzy Joseph Authenticated and [facility]
[2024-12-19 10:34] LABS: Hematocrit 41.3 % (37.0-47.0); Hemoglobin 13.9 g/dL (12.2-16.2); Immature Granulocytes % 0.4 %; Mean Corpuscular HGB Conc 33.7 g/dL (31.8-35.4); Mean Corpuscular Hemoglobin 29.8 pg (27.0-31.2); Mean Corpuscular Volume 88.4 fl (81-99); Nucleated Red Blood Cells % 0 %; Platelet Count 192 K/mm3 (142-424); Red Blood Count 4.67 M/mm3 (4.20-5.40); Red Cell Distribution Width-SD 38.7 fL; White Blood Count 7.0 K/mm3 (4.8-10.8)
[2024-12-19] MEDS: LACTATED RINGERS 1000ML 1,000 ML 999 ML IV (10:35)
[2024-12-19] MEDS: MORPHINE 4MG/ML SYRINGE 4 MG IV (10:35)
[2024-12-19] MEDS: ONDANSETRON 4MG/2ML VIAL 4 MG IV (10:35)
[2024-12-19 10:38] LABS: Albumin Level 4.4 g/dl (3.5-5.0); Chloride 105 mmol/L (98-107); Potassium 4.1 mmoL/L (3.5-5.1); Sodium 135 mmol/L (136-145)
[2024-12-19 10:41] LABS: Alanine Aminotransferase 14 U/L (12-78); Albumin/Globulin Ratio 1.4 (1.1-1.8); Alkaline Phosphatase 56 U/L (38-126); Anion Gap 13.1 mEq/L (5-15); Aspartate Amino Transferase 28 U/L (14-36); Bilirubin,Total 1.0 mg/dl (0.2-1.3); Blood Urea Nitrogen 6 mg/dl (7-17); Calcium 9.1 mg/dl (8.4-10.2); Carbon Dioxide 21 mmol/L (22.0-30.0); Creatinine Clearance Estimated 80 mL/min (50-200); Creatinine,Serum 0.70 mg/dl (0.52-1.04); Estimated Glomerular Filt Rate 98 ml/min (>60); GFR (African American) 119 ML/MIN (>60); Globulin 3.1 g/dL (1.3-3.2); Glucose 106 mg/dl (74-100); Lipase 72 U/L (23-300); Total Protein,Serum 7.5 g/dl (6.3-8.2)
--- NOTE | 2024-12-19 10:43 | ED_ITS ---
Discharge Plan Disposition Patient Disposition: Home, Self-Care Prescriptions Prescriptions: New sulfamethoxazole-trimethoprim [Bactrim DS] 800-160 mg tablet 1 tab PO BID 10 Days Qty: 20 0RF Referrals Follow up/Referrals: Provider,Referral, [Referring, Medical] - See instructions Activity Restrictions/Add. Instructions Additional Instructions/Restrictions: As discussed there is no other alternative diagnosis other than acute pyelonephritis in the right kidney it is possible that you have a drug-resistant organism that was not adequately treated with the ciprofloxacin given the significant resistance pattern in our region but also given the fact that there is significant side effects from that medication we will change you to Bactrim as discussed today. There is some resistance to this medication in our region as well so please make sure you follow-up on culture results. Your CT scan did not show any evidence of a definitive stone within the collecting system causing obstruction however there was some evidence that there may have been a recently passed stone. If you continue to have symptoms return to the emergency department or follow-up with your urologist if you continue to have high fevers that are not breaking within 48 to 72 hours I recommend you return to the emergency department to be admitted for IV antibiotics. Clinical Impressions Clinical Impression: Acute right flank pain, Pyelonephritis Instructions Patient Instructions: DI for Acute Abdominal Pain Print Language Print Language: South Sudanese Discharge ED Provider: Ainsley Vieira General Adult HPI General Chief complaint: Abdominal Pain Stated complaint: Stomach pain, fever, cold sweats Time Seen by Provider: 12/19/24 10:20 Mode of Arrival: Ambulatory Source of Information: Patient Description of Symptoms (Recalled from ER Triage Doc. by RN): pt presents to the ED with abdominal pain and right sided lower back pain. pt reports that she was seen at the hospital at [facility] on Wednesday and was diagnosed with a kidney infection. pt is currently taking antibiotics and pain medication. pt had weight loss surgery a year and half ago. Hx of kindey stone and has had to have them surgically removed. pt states that 1 hr prior to arrival she had a temp of 103 and took Tylenol. pt reports that she has dizziness, cold sweats, and shortness of breath from the dizziness. History of Present Illness HPI narrative: Patient is a 29-year-old female presented today with right flank and right upper quadrant abdominal pain and fever. This started on Wednesday she went to [place] where she states she begged them to get a kidney stone CT as she has had numerous CTs in the past and has had multiple stents lithotripsies etc. and with her history she was very concerned she had an infected kidney stone. She was diagnosed with pyelonephritis started on ciprofloxacin has not had any improvement in her symptoms she states that its only gotten worse. She now states the pain is radiated around to the anterior abdomen and also has epigastric right upper quadrant pain in addition to the right flank pain. Tmax of 103 yesterday. Took Tylenol prior to arrival she is allergic to ibuprofen. Still has all of her organs. Related Data Previous Rx's ?Medication ?Instructions ?Recorded sulfamethoxazole 800 1 tab PO BID 10 days #20 tab s 12/19/24 mg-trimethoprim 160 mg tablet (Bactrim DS) Allergies Allergy/AdvReac Type Severity Reaction Status Date / Time cefixime (From Suprax) Allergy Hives Verified 12/19/24 10:16 terbutaline (From Brethine) Allergy Hives Verified 12/19/24 10:16 NSAIDS (Non-Steroidal AdvReac Other Verified 12/19/24 10:17 Anti-Inflamma PFSH [facility] Disclaimer: The information contained in this section may have been updated after the patient was seen, as this information can be updated by other users. Social History Smoking Status: Never smoker alcohol intake: never current occupational status: other Travel in the last 8 weeks?: None ROS Obtained: Yes All systems reviewed & no additional complaints except as documented Physical Exam General General appearance: alert Respiratory Respiratory exam: Present normal lung sounds bilaterally Cardiovascular Cardiovascular exam: Present regular rate Abdominal Exam Abdominal exam: Present soft and tenderness (Right upper quadrant and epigastric and right CVA tenderness no rebound or guarding) Neurological Exam Neurological exam: Present alert and oriented X3 Medical Decision Making Medical Records Screening: Per USPSTF and CDC recommendations, given the prevalence of disease in our region, it is our hospital?s policy to screen for HIV and viral Hepatitis for all patients aged 18 and over and those with ongoing risk factors. Kam Inquiry Pt receiving controlled substance: No Vital Signs: 12/19/24 10:09 12/19/24 10:12 12/19/24 10:12 Temperature 100 F H 100 F H Temperature Source Oral Oral Pulse Rate 109 H 112 H Pulse Rate [Right] 112 H Respiratory Rate 18 18 Blood Pressure 139/85 139/85 Blood Pressure [Right Arm] 139/85 Blood Pressure Mean [Right Arm] 103 Blood Pressure Source Automatic Cuff Blood Pressure Source [Right Arm] Automatic Cuff Blood Pressure Position Supine Blood Pressure Position [Right Arm] Supine 02 Sat by Pulse Oximetry 94 L 95 95 Oxygen Delivery Method Room Air Room Air 12/19/24 12:38 12/19/24 12:44 Temperature 99.6 F Temperature Source Oral Pulse Rate 96 H Pulse Rate [Right] Respiratory Rate Blood Pressure 124/72 Blood Pressure [Right Arm] Blood Pressure Mean [Right Arm] Blood Pressure Source Blood Pressure Source [Right Arm] Blood Pressure Position Blood Pressure Position [Right Arm] 02 Sat by Pulse Oximetry 97 Oxygen Delivery Method Lab Data Lab results reviewed: Yes I reviewed the patient's lab results. Lab Results 12/19/24 10:07: Urine Color Yellow, Urine Appearance Sl cloudy, Urine pH 6.0, Ur Specific [place] >= 1.030, Urine Protein 1+ A, Urine Glucose (UA) Negative, Urine Ketones 3+, Urine Blood 2+ A, Urine Nitrate Positive A, Urine Bilirubin 1+ A, Urine Urobilinogen 0.2, Ur Leukocyte Esterase Trace, Urine RBC 3-5, Urine WBC 20-50, Ur Squamous Epith Cells 10-20, Urine Bacteria 2+, Urine HCG, Qual Negative 12/19/24 10:15: WBC 7.0, RBC 4.67, Hgb 13.9, Hct 41.3, MCV 88.4, MCH 29.8, MCHC 33.7, RDW 12.1, Plt Count 192, MPV 9.7, Neut % (Auto) 75.1, Lymph % (Auto) 17.3, Kerr % (Auto) 6.9, Eos % (Auto) 0.0 L, Baso % (Auto) 0.3, Neut # (Auto) 5.2, Lymph # (Auto) 1.2, Kerr # (Auto) 0.5, Eos # (Auto) 0.0, Baso # (Auto) 0.0, S odium 135 L, Potassium 4.1, Chloride 105, Carbon Dioxide 21 L, Anion Gap 13.1, B UN 6 L, Creatinine 0.70, Estimated Creat Clear 80, Estimated GFR 98, Est GFR ( Amer) 119, Glucose 106 H, Lactate 0.7, Calcium 9.1, Total Bilirubin 1.0, AST 28, ALT 14, Alkaline Phosphatase 56, Total Protein 7.5, Albumin 4.4, Globulin 3.1, Albumin/Globulin Ratio 1.4, Lipase 72, HCV Ab HARMONY w/Rflx PCR Qn Negative, HIV Ag/Ab Combo Qual Negative 12/19/24 10:15 12/19/24 10:15 Orders (Tests/Meds): ED MEDICATIONS Discontinued Medications Generic Name Dose Route Start Last Admin Trade Name Freq PRN Reason Stop Dose Admin Lactated Ringer's 1,000 mls @ 999 mls/hr 12/19/24 10:30 12/19/24 11:58 Lactated Ringer's 1000 Ml Bag IV 12/19/24 11:30 Infused .Q1H1M ADAMA Infusion Iopamidol 75 ml 12/19/24 12:25 12/19/24 12:26 Iopamidol-370 (76%);100ml Bottle IV 12/19/24 12:26 75 ml ONCE ONE Administration Morphine Sulfate 4 mg 12/19/24 10:29 12/19/24 10:35 Morphine 4mg/Ml Syringe IV 12/19/24 10:30 4 mg ONCE ONE Administration Ondansetron HCl 4 mg 12/19/24 10:29 12/19/24 10:35 Ondansetron 4mg/2ml Vial IV 12/19/24 10:30 4 mg ONCE ONE Administration Sodium Chloride 10 ml 12/19/24 12:25 12/19/24 12:26 Sodium Chloride 0.9% 10ml Syr (Rad Only) IV 12/19/24 12:26 10 ml ONCE ONE Administration Trimethoprim/Sulfamethoxazole 1 each 12/19/24 13:30 Sulfa/Trimethoprim 1 Tablet PO 12/19/24 13:31 ONCE ONE ORDERS Category Date Time Status CT abdomen pelvis wo/w con Stat Cat Scan 12/19/24 10:29 Taken CBC w/Auto Diff [Complete Blood Count Auto Diff] Stat Lab 12/19/24 10:15 Completed CMP [Comprehensive Metabolic Panel] Stat Lab 12/19/24 10:15 Completed HIV Combo Stat Lab 12/19/24 10:15 Completed Hepatitis C Ab Qual. W/ RFX Stat Lab 12/19/24 10:15 Completed Lactic Acid Stat Lab 12/19/24 10:15 Completed Lipase Stat Lab 12/19/24 10:15 Completed UA [Urinalysis and Microscopic] Stat Lab 12/19/24 10:07 Completed Urine , HCG Qual. Stat Lab 12/19/24 10:07 Completed Blood Culture Stat Micro 12/19/24 10:53 Received Urine Culture Stat Micro 12/19/24 10:07 Received Medical Decision Narrative: 29-year-old with above history and physical. She is quite tender in her anterior abdomen which is out of proportion to what I typically see with a kidney stone however a a kidney stone that is associated with an infection is leading on the differential. Other things in the differential would be hepatobiliary disease and cholecystitis ascending cholangitis pancreatitis etc. we will get a CT scan with and without contrast to further evaluate this. Urinalysis positive for UTI also significant blood. Reassessment 1:[address] scan performed which I personally interpreted shows no evidence of any cause of anterior abdominal discomfort labs also consistent with this there is some stranding around the right kidney consistent with pyelonephritis also there is some right hydronephrosis with stranding around the ureter but no evidence of any obstructing stone this is likely secondary to a passed stone. Patient did have an episode this morning where she thought she may have passed it that took a she should significantly improve with oral antibiotics. She has recently been on ciprofloxacin which is typically not first-line given the side effect profile and significant resistance profile in this region as well. She has a allergy to cefixime so cefdinir was not prescribed Bactrim was given in the emergency department and she was sent home with a prescription of Bactrim she advised follow-up with urologist or primary care doctor or return to the emergency room with any significant worsening of her symptoms she was very well on serial assessments and vital signs are significantly improved and her exam and symptoms have dramatically improved as well. Patient was discharged in stable condition. Critical Care Critical Care Time Critical Care Time: Yes Attestation: On 12/19/24, the high probability of a clinically significant, sudden or life threatening deterioration of the following system(s) required my full and direct attention, intervention and personal management. The time I documented below is in addition to time spent performing reported procedures but includes the following listed in this critical care notation. Total Time Total Critical Care Time: 35
[2024-12-19 10:53] LABS: Bacteria,Urine 2+ /lpf; WBC,Urine 20-50 #/hpf (0-3)
--- OUTSIDE RECORDS SUMMARY | 2024-12-19 11:14 | XMS_ITS | Encounter Summary ---
Author Organization [place] [address] Care Team Providers Care Yardage Caller Name Role Phone Shameka Reese MD Primary Care Provider [phone] Encounter Details Date Type Department Care Team (Late st Contact Info) Description 12/01/2024 Results Follow-Up [facility] [address] [place] [phone] Jim Bain, DEBBIE [address] [place] [address] CBC, COMPREHENSIVE METABOLIC PANEL, HEMOGLOBIN A1C, Additional followed-up results: 2 Social History Tobacco Use Types Packs/Day Years Used Date Smoking Tobacco: Never Passive Smoke Exposure: Never Smokeless Tobacco: Never Alcohol Use Standard Drinks/Week Comments Not Currently 0 (1 standard drink = 0.6 oz pur e alcohol) [facility] Utilities Answer Date Recorded In the past 12 months has e electric, gas, oil, or water company threatened to shut off services in your home? No 07/01/2023 Overall Financial Resource Strain (CARDIA) Answe r Date Recorded How hard is it for you to pa y for the very basics like food, housing, medical care, and heating? Not very hard 07/01/2023 PHQ-2 Answer Date Recorded PHQ-2 Total Score 0 09/01/2024 [place] of Occupat [facility] - Occupational Stress Questionnaire Answer Date Recorded [...] money to get more. Never true 07/01/2023 [facility] IP Transportation Answer D ate Recorded In [...] Carlos Mendez RMA documented in this encounter Plan of Treatment Upcoming Encounters Date Type Department Care Team (Late st Contact Info) Description 12/27/2024 8:30 AM EDT Appointment [facility] [address] [place], [place] [id number] Jessica Leach THREAD WEAVER [address] [facility] [address] [place] [address] Marylu Gates PA-C [address] [facility] [address] [place], [place] [id number] 12/29/2024 8:40 AM EDT Office Visit [facility] [place] [address] [facility] [address] [place] [address] Jonathan Saldana, OD [address] [facility] [address] [place], [place] [id number] 12/29/2024 3:00 PM EDT Appointment [facility] [address] [place] [address] Jessica Leach APRN [address] [facility] [address] [place], [place] [address] 03/09/2025 8:00 AM EST Office Visit [facility] [place] [id number] [facility] [address] [place], [place] [id number] Jessica Leach THREAD WEAVER [address] [facility] [address] [place], [place] [id number] documented as of this encounter Goals Goal Patient Goal Type Associated Problems Recent Progress Patient-Stated? Author Blood Pressure < 140/90 Blood Pressure 100/60(2024 2:54 PM EDT) Gisselle Henderson CCMA Maintain a healthy diet, exercise regularly and maintain an ideal body weight General No Sol House RMA documented as of this encounter Visit Diagnoses Not on filedocumented in this encounter Care Teams Yardage Caller Relationship Specialty Start Date End Date Shameka Reese MD [address] [place] [address] PCP - General Family Medicine 05/19/16 documented as of this encounter
--- OUTSIDE RECORDS SUMMARY | 2024-12-19 11:14 | XMS_ITS | Encounter Summary ---
Author Organization [place] [address] Care Team Providers Care Mandolin Repairer Name Role Phone Shameka Reese MD Primary Care Provider [phone] Reason for Visit * Reason Comments Pharmacy Migraine Medication Management Ubrelvy Encounter Details Date Type Department Care Team (Latest Contact Info) Description 12/05/2024 Specialty Pharmacy [facility] [address] [id number] Yannick Mora, LollyD Pharmacy Migraine Medication Management (Ubrelvy ) Social History Tobacco Use Types Packs/Day Years Used Date Smoking Tobacco: Never Passive Smoke Exposure: Never Smokeless Tobacco: Never Alcohol Use Standard Drinks/Week Comments Not Currently 0 (1 standard drink = 0.6 oz pur e alcohol) [facility] Utilities Answer Date Recorded In the past 12 months has [employer], gas, oil, or water [employer] threatened to shut off services in your home? No 07/01/2023 Overall Financial Resource Strain (CARDIA) Answe r Date Recorded How hard is it for you to pa y for the very basics like food, housing, medical care, and heating? Not very hard 07/01/2023 PHQ-2 Answer Date Recorded PHQ-2 Total Score 0 09/01/2024 [facility] [place] of Occupat ional Health - Occupational Stress [...] [facility] IP Transportation Answer D ate Recorded [...] Carlos Mendez RMA documented in this encounter Progress Notes * Yannick Mora, PharmVivien - 12/05/2024 9:13 AM EDT [facility] Prescription received for Ubrelvy (100mg). PA status unknown at this time due to being unable to find patient's insurance. Will contact patient to determine insurance. * Vilma Farnsworth CPhT - 12/05/2024 9:13 AM EDT [facility] Prior Authorization Submitted PA for Ubrelvy to [employer] insurance via covermymeds ([place] [id number]). Will follow up on 12/07. * Tala Bernstein CPhT - 12/05/2024 9:13 AM EDT [facility] Called insurance to check status of Ubrelvy PA. Insurance: [employer] ([phone]) Patient zip code: [address] Provider name: Jessica Leach Provider Address: [address] [place] [address] Per rep, PA is handled by another program. The phone number for the program that handles this PA [phone]. Called the Connect team ([phone]) to check status. The PA was canceled due to their being a program for the member to acquire the medication without the need for a PA. Member will need to call [phone] to enroll. Called patient to advise her of the program and let her know that she will need to reach out to insurance to discuss further information. No answer, left voicemail. * Mary Coley CPhT - 12/05/2024 9:13 AM EDT [facility] The PA was canceled due to their being a program for the member to acquire the medication without the need for a PA. Member will need to call [phone] to enroll. Called patient to advise her of the program and let her know that she will need to reach out to insurance to discuss further information. No answer, left voicemail to call [phone], option 4. * Mary Coley CPhT - 12/05/2024 9:13 AM EDT [facility] Prior Authorization The PA was canceled due to their being a program for the member to acquire the medication without the need for a PA. Member will need to call [phone] to enroll. Called patient to advise her of the program and let her know that she will need to reach out to insurance to discuss further information. No answer, left voicemail to call [phone], option 4. * Neli Scott CPhT - 12/05/2024 9:13 AM EDT [facility] Sent 1Ringt message to see If she was able to get help with her Ubrelvy documented in this encounter Plan of Treatment Upcoming Encounters Date Type Department Care Team (Late st Contact Info) Description 12/27/2024 8:30 AM EDT [facility] [place] [address] Jessica Leach, ORAL AND MAXILLOFACIAL PATHOLOGIST [address] [place] [address] Marylu Gates PA-C [address] [facility] [address] [place] [address] 12/29/2024 8:40 AM EDT Office Visit [facility] [place] [address] [facility] [address] [place] [phone] Jonathan Saldana, OD [address] [facility] [place] [address] 12/29/2024 3:00 PM EDT Appointment [facility] [address] [place], [place] [phone] Jessica Leach, ORAL AND MAXILLOFACIAL PATHOLOGIST [address] [place] [address] 03/09/2025 8:00 AM EST Office Visit [facility] [place] [address] [facility] [address] [place] [address] Jessica Leach, ORAL AND MAXILLOFACIAL PATHOLOGIST [address] [place] [address] documented as of this encounter Goals Goal Patient Goal Type Associated Problems Recent Progress Patient-Stated? Author Blood Pressure < 140/90 Blood Pressure 100/60(2024 2:54 PM EDT) Gisselle Henderson, JESSA Maintain a healthy diet, exercise regularly and maintain an ideal body weight General No Sol House, KATJA documented as of this encounter Visit Diagnoses Not on filedocumented in this encounter Care Teams Mandolin Repairer Relationship Specialty Start Date End Date Shameka Reese MD [address] [place] [address] PCP - General Family Medicine 05/19/16 documented as of this encounter
--- OUTSIDE RECORDS SUMMARY | 2024-12-19 11:14 | XMS_ITS | Encounter Summary ---
Author Organization [facility] Address [address] [place] [address] Care Team Providers Care Otm Consultant Name Role Phone Shameka Reese MD Primary Care Provider [phone] Encounter Details Date Type Department Care Team (Late st Contact Info) Description 12/05/2024 Orders Only [facility] [address] [place] [address] Neela Serrano RMA IIH (idiopathic intracranial hypertension) (Primary Dx) Social History Tobacco Use Types Packs/Day Years Used Date Smoking Tobacco: Never Passive Smoke Exposure: Never Smokeless Tobacco: Never Alcohol Use Standard Drinks/Week Comments Not Currently 0 (1 standard drink = 0.6 oz pur e alcohol) [facility] Utilities Answer Date Recorded In the past 12 months has [employer] electric, gas, oil, or water [employer] threatened to shut off services in your home? No 07/01/2023 Overall Financial Resource Strain (CARDIA) Answe r Date Recorded How hard is it for you to pa y for the very basics like food, housing, medical care, and heating? Not very hard 07/01/2023 PHQ-2 Answer Date Recorded PHQ-2 Total Score 0 09/01/2024 [facility] [place] of Occupat ional Health - Occupational Stress [...] money to get more. Never true 07/01/2023 [facility] IP Transportation Answer D ate Recorded [...] Entry Date Author No 06/19/2024 8:05 AM EST J Carlos Babcock RMA documented in this encounter Plan of Treatment Upcoming Encounters Date Type Department Care Team (Late st Contact Info) Description 12/27/2024 8:30 AM EDT Appointment [facility] [place] [address] Jessica Leach, HEAT PLANT SPECIALIST [address] [facility] [address] [place] [address] Marylu Gates PA-C [address] [facility] [address] [place], [place] [id number] 12/29/2024 8:40 AM EDT Office Visit [facility] [address] [place] [address] Jonathan Saldana, OD [address] [facility] [address] 12/29/2024 3:00 PM EDT Appointment [facility] [address] [place] [address] Jessica Leach, HEAT PLANT SPECIALIST [address] [address] 03/09/2025 8:00 AM EST Office Visit [facility] [address] [place], [place] [id number] Jessica Leach, HEAT PLANT SPECIALIST [address] [id number] Scheduled Orders Name Type Priority Associated Diagnoses Orde r Schedule CBC Lab STAT IIH (idiopathic intracranial hypertension) 1 Occurrences starting 12/05/2024 until 12/05/2025 PT / INR Lab STAT IIH (idiopathic intracranial hypertension) 1 Occurrences starting 12/05/2024 until 12/05/2025 documented as of this encounter Goals Goal Patient Goal Type Associated Problems Recent Progress Patient-Stated? Author Blood Pressure < 140/90 Blood Pressure 100/60(2024 2:54 PM EDT) Gisselle Henderson, JESSA Maintain a healthy diet, exercise regularly and maintain an ideal body weight General No Sol House, RMA documented as of this encounter Visit Diagnoses Diagnosis IIH (idiopathic intracranial hypertension)- Primary Benign intracranial hypertension documented in this encounter Care Teams Otm Consultant Relationship Specialty Start Date End Date Shameka Reese MD [address] [place] [address] PCP - General Family Medicine 05/19/16 documented as of this encounter
--- OUTSIDE RECORDS SUMMARY | 2024-12-19 11:14 | XMS_ITS | Encounter Summary ---
Author Organization [place] [address] Care Team Providers Care Tromper Name Role Phone Shameka Reese MD Primary Care Provider [phone] Reason for Visit * Reason Comments Pharmacy Migraine Medication Management Qulipta Encounter Details Date Type Department Care Team (Latest Contact Info) Description 12/05/2024 Specialty Pharmacy [facility] [address] [phone] Yannick Mora, LollyD Pharmacy Migraine Medication Management (Qulipta) Social History Tobacco Use Types Packs/Day Years Used Date Smoking Tobacco: Never Passive Smoke Exposure: Never Smokeless Tobacco: Never Alcohol Use Standard Drinks/Week Comments Not Currently 0 (1 standard drink = 0.6 oz pur e alcohol) [facility] Utilities Answer Date Recorded In the past 12 months has [employer], gas, oil, or water [employer] threatened to shut off services in your home? No 07/01/2023 Overall Financial Resource Strain (CARDIA) Answe r Date Recorded How hard is it for you to pa y for the very basics like food, housing, medical care, and heating? Not very hard 07/01/2023 PHQ-2 Answer Date Recorded PHQ-2 Total Score 0 09/01/2024 [facility] [place] of Occupat ional Health - Occupational Stress [...] to get more. Never true 07/01/[address] [facility] IP Transportation Answer D ate Recorded [...] Refills Last Filled Start Date End Date atogepant 60 mg Oral Tablet Take 1 Tablet by mouth daily. 30 Tablet 11 12/08/2024 documented in this encounter Progress Notes * Yannick Mora PharmD - 12/05/2024 9:13 AM EDT [facility] Prescription received for Qulipta (60mg). PA status unknown at this time due to being unable to find patient's insurance. Will contact patient to determine insurance. * Yannick Mora PharmD - 12/05/2024 9:13 AM EDT [facility] - Migraine Clinical Review Marleni Padgett is a 29 y.o. female. Migraine: Patient was prescribed Atogepant (Qulipta) 60 mg PO every day for initiation of Preventive treatment of migraine (G43.009). Medication needs loading dose: No Number of migraine days per month: 30 Are migraines Chronic or Episodic? Chronic Allergies Allergen Reactions Suprax [Cefixime] Hives Brethine [Terbutaline] Palpitations It made me out of it Nsaids (Non-Steroidal Anti-Inflammatory Drug) Other (See Comments) HX GASTRIC SLEEVE! Risk/ Status: Having periods Test: Preg Test, Ur (no units) Date Value 06/30/2023 negative Lab Results Component Value Date CREATININE 0.78 11/29/2024 BUN 8 11/29/2024 AST 17 11/29/2024 ALT 8 11/29/2024 Current Outpatient Medications - WARNING: List may be incomplete due to filtering Medication Sig albuterol Inhale 2 Puffs into the lungs every 4 hours as needed for Wheezing. atogepant Take 1 Tablet by mouth daily. busPIRone Take 1 Tablet by mouth 2 times daily. For anxiety desvenlafaxine succinate Take 1 Tablet by mouth daily. ergocalciferol Take 1 Capsule by mouth once a week. MULTIVITAMIN ORAL Take by mouth. ondansetron Take 1 Tablet by mouth every 4 hours as needed for Nausea. pantoprazole Take 1 Tablet by mouth 2 times daily. tirzepatide (weight loss) Inject 7.5 mg under the skin once a week. ubrogepant Take one tablet by mouth at onset of migraine. May repeat dose in 2 hours one time up toa maximum of 200mg per 24 hours. ZEPBOUND Inject 5 mg under the skin once a week. Previous medications utilized: Fioricet and Sumatriptan (Imitrex, Sumavel, Onzetra, Zembrace) Medication being used with prescribed meds: Rimegepant (Nurtec) as well as APAP Does patient have aura? No Has medication overuse headache been considered and potentially offending medications(s) discontinued? Yes Patient has the following contraindications/precautions to triptan use: has a history of IIH, but has tried and failed sumatriptan. Would be cautious in trying another triptan given this. She has history of kidney stones, so would be a poor candidate for topiramate. Will be used in combination with another CGRP for abortive (acute) therapy Clinical Impression: clinically appropriate per guidelines, clear indication, as well as chronic migraine despite previously tried therapies. Yannick Mora, PharmD Specialty Pharmacist * Vilma Farnsworth CPhT - 12/05/2024 9:13 AM EDT [facility] Prior Authorization Submitted PA for Qulipta to [employer] insurance via [employer] ([employer] [id number]). Will follow up on 12/07. * Jocelyne Baires CPhT - 12/05/2024 9:13 AM EDT Images from the original note were not included. [facility] Prior Authorization Determination Received notice of PA denial for Qulipta. PA was denied due to: Non referral patient. Will route to Specialty [facility] to determine next steps. Appeal letter pended. Is peer to peer an option? No. Patient needs to fill out Member Appeal Request form prior to submitting appeal. (sent to patient) * Martita Dumont [facility] - 12/05/2024 9:13 AM EDT Appeal written and sent. * Neli Scott CPhT - 12/05/2024 9:13 AM EDT Images from the original note were not included. [facility] Prior Authorization Determination Received notice of PA approval for Qulipta. PA approved from 12/08/2024 to 12/08/2025. Patient is able to fill at [facility]. Copay is $419.48. Note says to direct patient to [employer] [phone] Patient has commercial insurance and may qualify for copay card. No answer, left voicemail to call [phone], option 4. will route to [facility] to transfer to [facility] so medication will cheaper for patient hopefully by going to them. * Carla Rosado [facility] - 12/05/2024 9:13 AM EDT [facility] Prescription for Qulipta was transferred to [facility] due to patient preference. Will contact patient for one time follow-up to confirm receipt of medication from outside pharmacy. [employer] is just a PBM and has no pharmacy attached to it. [facility] is a preferred pharmacy and they patient is already established there. aCrla Rosado RPH Specialty Pharmacist documented in this encounter Miscellaneous Notes * Addendum Note - Carla Rosado RPH - 12/05/2024 9:13 AM EDTAddended by: CARLA ROSADO on: 12/08/2024 02:34 PM Modules accepted: Orders documented in this encounter Plan of Treatment Upcoming Encounters Date Type Department Care Team (Late st Contact Info) Description 12/27/2024 8:30 AM EDT Appointment [facility] [place] [address] Jessica Leach, E BUSINESS PROJECT MANAGER [address] [facility] [address] [place] [address] Marylu Gates PA-C [address] [place] [address] [address] [place] [address] 12/29/2024 8:40 AM EDT Office Visit [facility] Ophthal[facility] [address] [facility] [address] [place] [address] Jonathan Saldana, OD [address] [place] [address] 12/29/2024 3:00 PM EDT Appointment [facility] [address] [place] [address] Jessica Leach, E BUSINESS PROJECT MANAGER [address] [place] [address] 03/09/2025 8:00 AM EST Office Visit [facility] [address] [place], [place] [id number] Jessica Leach, E BUSINESS PROJECT MANAGER [address] [place], [place] [phone] documented as of this encounter Goals Goal Patient Goal Type Associated Problems Recent Progress Patient-Stated? Author Blood Pressure < 140/90 Blood Pressure 100/60(2024 2:54 PM EDT) Gisselle Henderson CCMA Maintain a healthy diet, exercise regularly and maintain an ideal body weight General No Sol House RMA documented as of this encounter Visit Diagnoses Not on filedocumented in this encounter Discontinued Medications Medication Sig Discontinue Reason Start Date End Da te atogepant 60 mg Oral Tablet Take 1 Tablet by mouth daily. Reorder 12/05/2024 12/08/2024 documented as of this encounter Care Teams Tromper Relationship Specialty Start Date End Date Shameka Reese MD 100 [place] [address] PCP - General Family Medicine 05/19/16 documented as of this encounter
--- OUTSIDE RECORDS SUMMARY | 2024-12-19 11:14 | XMS_ITS | Encounter Summary ---
Author Organization [facility] Address [address] [place] [address] Care Team Providers Care Sap Bw Developer Name Role Phone Shameka Reese MD Primary Care Provider [phone] Reason for Visit * Reason Onset Date Comments Procedure 12/05/2024 Lumbar puncture Encounter Details Date Type Department Care Team (Late st Contact Info) Description 12/05/2024 Telephone [facility] [place] [address] [place] [address] Neela Serrano RMA Procedure (Lumbar puncture) Social History Tobacco Use Types Packs/Day Years Used Date Smoking Tobacco: Never Passive Smoke Exposure: Never Smokeless Tobacco: Never Alcohol Use Standard Drinks/Week Comments Not Currently 0 (1 standard drink = 0.6 oz pur e alcohol) [facility] Utilities Answer Date Recorded In the past 12 months has [employer], gas, oil, or water company threatened to shut off services in your home? No 07/01/2023 Overall Financial Resource Strain (CARDIA) Answe r Date Recorded How hard is it for you to pa y for the very basics like food, housing, medical care, and heating? Not very hard 07/01/2023 PHQ-2 Answer Date Recorded PHQ-2 Total Score 0 09/01/2024 [facility] [place] of Occupat ional Health - Occupational Stress [...] money to get more. Never true 07/01/2023 [facility] IP Transportation Answer D [...] of Assessment Author No 06/19/2024 8:05 AM JC arlos Mendez RMA * Because of a physical, [...] Carlos Babcock RMA documented in this encounter Miscellaneous Notes * Telephone Encounter - Neela SerranoKATJA - 12/05/2024 2:14 PM EDT Lumbar Puncture Instructions Spoke with patient Date: Wednesday11/26/24 Location: [place] Entrance: outpatient 3a Arrival time: 7:30 Procedure time:8:30 Can you lay flat on your stomach: Yes You will be at the hospital for several hours. You must have a clamp truck driver. No driving for 24 hours after the procedure. You may have a light meal prior to procedure. Blood thinner instructions: NO Any possibility of ? No as of 12/05/24 Patient instructed to stop at the OP lab prior to going to radiology department. You must hold all Aspirin containing medications 5 days prior to procedure. Approved by: Italo Cuellar PA-C * Telephone Encounter - Neela Serrano RMA - 12/05/2024 2:02 PM EDT Left message for patient to call the office to schedule lumbar puncture. documented in this encounter Plan of Treatment Upcoming Encounters Date Type Department Care Team (Late st Contact Info) Description 12/27/2024 8:30 AM EDT Appointment [facility] X[facility] [place] [address] Jessica Leach, INSTRUMENTATION CONTROLS ENGINEER [address] [place] [address] Marylu Gates PA-C [address] [facility] [address] [place] [address] 12/29/2024 8:40 AM EDT Office Visit [facility] [place] [address] [facility] [address] [place] [address] Jonathan Saldana, OD [address] [facility] [address] [place], [place] [id number] 12/29/2024 3:00 PM EDT Appointment [facility] MRI [address] [place], [place] [phone] Jessica Leach, INSTRUMENTATION CONTROLS ENGINEER [address] [place] [address] 03/09/2025 8:00 AM EST Office Visit [facility] [place] [address] [facility] [place] [address] Jessica Leach, INSTRUMENTATION CONTROLS ENGINEER [address] E[address] FIELD SERVICE ENGINEER [facility] 100 [place] [address] documented as of this encounter Goals Goal Patient Goal Type Associated Problems Recent Progress Patient-Stated? Author Blood Pressure < 140/90 Blood Pressure 100/60(2024 2:54 PM EDT) Gisselle Henderson, JESSA Maintain a healthy diet, exercise regularly and maintain an ideal body weight General No Sol House, RMA documented as of this encounter Visit Diagnoses Not on filedocumented in this encounter Care Teams Sap Bw Developer Relationship Specialty Start Date End Date Shameka Reese MD [address] [place] [address] PCP - General Family Medicine 05/19/16 documented as of this encounter
--- OUTSIDE RECORDS SUMMARY | 2024-12-19 11:16 | XMS_ITS | Encounter Summary ---
Author Organization [place] [address] Care Team Providers Care Unified Communications Engineer Name Role Phone Shameka Reese MD Primary Care Provider [phone] Encounter Details Date Type Department Care Team (Late st Contact Info) Description 10/05/2024 Results Follow-Up [facility] [place] [address] [place] [address] Corinna Ibrahim, LINING MAKER [address] [facility] [place] [address] VITAMIN B1 (THIAMINE) WHOLE BLOOD -REF LAB, VITAMIN B12/ FOLIC ACID, VITAMIN D 25 HYDROXY, Additional followed-up results: 3 Social History Tobacco Use Types Packs/Day Years Used Date Smoking Tobacco: Never Passive Smoke Exposure: Never Smokeless Tobacco: Never Alcohol Use Standard Drinks/Week Comments Not Currently 0 (1 standard drink = 0.6 oz pur e alcohol) [facility] Utilities Answer Date Recorded In the past 12 months has [employer] electric, gas, oil, or water company threatened to shut off services in your home? No 07/01/2023 Overall Financial Resource Strain (CARDIA) Answe r Date Recorded How hard is it for you to pa y for the very basics like food, housing, medical care, and heating? Not very hard 07/01/2023 PHQ-2 Answer Date Recorded PHQ-2 Total Score 0 09/01/2024 [facility] - Occupational Stress Questionnaire Answer Date Recorded [...] money to get more. Never true 07/01/2023 [facility] IP Transportation Answer D ate Recorded In [...] Refills Last Filled Start Date End Date ergocalciferol (VITAMIN D) 1,250 mcg (50,000 unit) Oral Capsule Take 1 Capsule by mouth once a week. 12 Capsule 3 10/05/2024 documented in this encounter Plan of Treatment Upcoming Encounters Date Type Department Care Team (Late st Contact Info) Description 12/27/2024 8:30 AM EDT Appointment [facility] [place] [address] Jessica Leach, LINING MAKER [address] [address] Marylu Gates PA-C [address] [facility] [address] [place], [place] [id number] 12/29/2024 8:40 AM EDT Office Visit [facility] Ophthalmology [facility] [address] [address] Jonathan Saldana, OD [address] [facility] [address] [place], [place] [id number] 12/29/2024 3:00 PM EDT Appointment [facility] [address] [place] [address] Jessica Leach, LINING MAKER [address] [address] 03/09/2025 8:00 AM EST Office Visit [facility] [address] [address] Jessica Leach, LINING MAKER [address] [place] [address] documented as of this encounter Goals Goal Patient Goal Type Associated Problems Recent Progress Patient-Stated? Author Blood Pressure < 140/90 Blood Pressure 100/60(2024 2:54 PM EDT) No Gisselle Del Cid, [facility] Maintain a healthy diet, exercise regularly and maintain an ideal body weight General No Sol House, Marlyn documented as of this encounter Visit Diagnoses Not on filedocumented in this encounter Care Teams Unified Communications Engineer Relationship Specialty Start Date End Date Shameka Reese MD [address] [place] [address] PCP - General Family Medicine 05/19/16 documented as of this encounter
--- OUTSIDE RECORDS SUMMARY | 2024-12-19 11:16 | XMS_ITS | Encounter Summary ---
Author Organization [place] [address] Care Team Providers Care Outside Maintenance Worker Name Role Phone Shameka Reese MD Primary Care Provider [phone] Encounter Details Date Type Department Care Team (Late st Contact Info) Description 09/30/2024 Results Follow-Up [facility] [address] [place] [phone] Jim Bain, DEBBIE [address] [place] [address] MRI BRAIN W WO CONTRAST Social History Tobacco Use Types Packs/Day Years Used Date Smoking Tobacco: Never Passive Smoke Exposure: Never Smokeless Tobacco: Never Alcohol Use Standard Drinks/Week Comments Not Currently 0 (1 standard drink = 0.6 oz pur e alcohol) [facility] Utilities Answer Date Recorded In the past 12 months has [employer] electric, gas, oil, or water company threatened to shut off services in your home? No 07/01/2023 Overall Financial Resource Strain (CARDIA) Answe r Date Recorded How hard is it for you to pa y for the very basics like food, housing, medical care, and heating? Not very hard 07/01/2023 PHQ-2 Answer Date Recorded PHQ-2 Total Score 0 09/01/2024 [facility] [place] of Occupat ional Health - Occupational Stress [...] to get more. Never true 07/01/2023 [facility] IP Transportation Answer D ate Recorded In [...] Entry Date Author No 06/19/2024 8:05 AM ANNMARIE RossJ Carlos mclaughlin RMA documented in this encounter Plan of Treatment Upcoming Encounters Date Type Department Care Team (Late st Contact Info) Description 12/27/2024 8:30 AM EDT Appointment [facility] [address] [place], [place] [phone] Jessica Leach, HORTICULTURAL SPECIALTY GROWER FIELD [address] [facility] [address] [place] [address] Marylu Gates PA-C [address] [facility] [address] [place], [place] [id number] 12/29/2024 8:40 AM EDT Office Visit [facility] [place] [address] [facility] [address] [place] [address] Jonathan Saldana, OD [address] [facility] [address] 12/29/2024 3:00 PM EDT Appointment [address] [place] [address] Jessica Leach, HORTICULTURAL SPECIALTY GROWER FIELD [address] [facility] [address] [place], [place] [id number] 03/09/2025 8:00 AM EST Office Visit [facility] [address] [place], [place] [phone] Jessica Leach, HORTICULTURAL SPECIALTY GROWER FIELD [address] [id number] documented as of this encounter Goals Goal Patient Goal Type Associated Problems Recent Progress Patient-Stated? Author Blood Pressure < 140/90 Blood Pressure 100/60(2024 2:54 PM EDT) Gisselle Henderson, [facility] Maintain a healthy diet, exercise regularly and maintain an ideal body weight General No Sol House, RMA documented as of this encounter Visit Diagnoses Not on filedocumented in this encounter Care Teams Outside Maintenance Worker Relationship Specialty Start Date End Date Shameka Reese MD [address] [place] [address] PCP - General Family Medicine 05/19/16 documented as of this encounter
--- OUTSIDE RECORDS SUMMARY | 2024-12-19 11:17 | XMS_ITS | Encounter Summary ---
Author Organization [place] [address] Care Team Providers Care Stunner Name Role Phone Shameka Reese MD Primary Care Provider [phone] Reason for Visit * Reason Onset Date Comments Medication Refill 12/12/2024 Encounter Details Date Type Department Care Team (Late st Contact Info) Description 12/12/2024 Refill [facility] [address] [place] [phone] Jim Bain, KETTLE WORKER [address] [place] [address] Medication Refill Social History Tobacco Use Types Packs/Day Years Used Date Smoking Tobacco: Never Passive Smoke Exposure: Never Smokeless Tobacco: Never Alcohol Use Standard Drinks/Week Comments Not Currently 0 (1 standard drink = 0.6 oz pur e alcohol) [facility] Utilities Answer Date Recorded In the [...] Date Recorded PHQ-2 Total Score 0 09/01/2024 [facility] of Occupat ional Health - Occupational [...] money to get more. Never true 07/01/2023 [facility] IP Transportation Answer D ate Recorded [...] Refills Last Filled Start Date End Date tirzepatide, weight loss, 7.5 mg/0.5 mL SubQ SolutionIndications :Obesity, Class III, BMI 40-49.9 (morbid obesity) Inject 7.5 mg under the skin once a week. 3 mL 1 12/12/2024 documented in this encounter Plan of Treatment Upcoming Encounters Date Type Department Care Team (Late st Contact Info) Description 12/27/2024 8:30 AM EDT Appointment [facility] [place] [address] Jessica Leach APRN [address] [phone] Marylu Gates PA-C [address] [facility] [address] [place], [place] [phone] 12/29/2024 8:40 AM EDT Office Visit [facility] Ophthalmology [facility] [address] [facility] [address] [place] [address] Jonathan Saldana, OD [address] [facility] [address] [place], [place] [address] 12/29/2024 3:00 PM EDT Appointment [facility] [address] [place] [address] Jessica Leach, DEBBIE [address] [facility] 100 [place] [address] 03/09/2025 8:00 AM EST Office Visit [facility] [address] [place] [address] Jessica Leach, KETTLE WORKER [address] [place] [address] documented as of this encounter Goals Goal Patient Goal Type Associated Problems Recent Progress Patient-Stated? Author Blood Pressure < 140/90 Blood Pressure 100/60(2024 2:54 PM EDT) Gisselle Henderson, [facility] Maintain a healthy diet, exercise regularly and maintain an ideal body weight General Sol Handy, A documented as of this encounter Visit Diagnoses Diagnosis Obesity, Class III, BMI 40-49.9 (morbid obesity) Morbid obesity documented in this encounter Discontinued Medications Medication Sig Discontinue Reason Start Date End Da te tirzepatide, weight loss, 7.5 mg/0.5 mL SubQ SolutionIndications:Obes ity, Class III, BMI 40-49.9 (morbid obesity) Inject 7.5 mg under the skin once a week. Reorder 11/29/2024 12/12/2024 documented as of this encounter Care Teams Stunner Relationship Specialty Start Date End Date Shameka Reese MD [address] [place] [address] PCP - General Family Medicine 05/19/16 documented as of this encounter
--- OUTSIDE RECORDS SUMMARY | 2024-12-19 11:17 | XMS_ITS | Encounter Summary ---
Author Organization [place] [address] Care Team Providers Care Director Style Name Role Phone Shameka Reese MD Primary Care Provider [phone] Reason for Visit * Reason Onset Date Comments Prior Authorization 12/11/2024 Jorge VERGARA Encounter Details Date Type Department Care Team (Late st Contact Info) Description 12/11/2024 Telephone SEP Neurology [facility] [address] [place] [address] Jessica Leach, TERRITORY BUSINESS MANAGER [address] [facility] [address] [place] [address] Prior Authorization (Jorge VERGARA) Social History Tobacco Use Types Packs/Day Years Used Date Smoking Tobacco: Never Passive Smoke Exposure: Never Smokeless Tobacco: Never Alcohol Use Standard Drinks/Week Comments Not Currently 0 (1 standard drink = 0.6 oz pur e alcohol) [facility] Utilities Answer Date Recorded In the [...] Date Recorded PHQ-2 Total Score 0 [facility]20[facility] Questionnaire Answer Date Recorded [...] money to get more. Never true 07[facility]01[facility]2023 [facility] IP Transportation Answer D ate Recorded [...] Carlos Mendez RMA documented in this encounter Miscellaneous Notes * Telephone Encounter - Jessica Leach APRN - 12/19/2024 9:36 AM EDT Would let patient know this. Also to make sure, would ask her to call her insurance to see if they will cover Aimovig, Ajovy, or Emgality. Can let me know. * Telephone Encounter - Neli Angel MA - 12/19/2024 9:17 AM EDT Here is response from covermymeds: This denial is based on the following clinical guideline(s): A [employer] PA, DESMOND [id number]. 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 * Telephone Encounter - Neli Angel MA - 12/11/2024 7:54 AM EDT Received faxed PA request for pt's Qulipta. Completed PA on covermymeds. Will wait for response from insurance. GRACIA: [id number] documented in this encounter Plan of Treatment Upcoming Encounters Date Type Department Care Team (Late st Contact Info) Description 12/27/2024 8:30 AM EDT [facility] [place] [address] Jessica Leach APRN [address] [place] [address] Marylu Gates PA-C [address] [facility] [address] [place] [address] 12/29/2024 8:40 AM EDT Office Visit [facility] [address] [place] [id number] Jonathan Saldana, OD [address] [place] [address] 12/29/2024 3:00 PM EDT Appointment [facility] [address] [place] [employer], [place] [id number] Jessica Leach, TERRITORY BUSINESS MANAGER [address] [place] [address] 03/09/2025 8:00 AM EST Office Visit [facility] [address] [place] [address] Jessica Leach, TERRITORY BUSINESS MANAGER [address] [place] [address] documented as of this encounter Goals Goal Patient Goal Type Associated Problems Recent Progress Patient-Stated? Author Blood Pressure < 140/90 Blood Pressure 100/60(2024 2:54 PM EDT) Gisselle Henderson, JESSA Maintain a healthy diet, exercise regularly and maintain an ideal body weight [facility], RMA documented as of this encounter Visit Diagnoses Not on filedocumented in this encounter Care Teams Director Style Relationship Specialty Start Date End Date Shameka Reese MD [address] [place] [id number] PCP - General Family Medicine 05/19/16 documented as of this encounter
--- OUTSIDE RECORDS SUMMARY | 2024-12-19 11:17 | XMS_ITS | Clinical Summary ---
Author Organization [facility] Address [address] [place] [address] Phone Care Team Providers Care Lard Maker Name Role Phone Shameka Reese MD Primary Care Provider [phone] Allergies Active Allergy Reactions Criticality Noted Date Comments Terbutaline Palpitations Medium 09/30/2015 It made me out of it Nsaids (Non-Steroidal Anti-Inflammatory Drug) Other (See Comments) 06/21/2023 HX GASTRIC SLEEVE! Cefixime Hives High Medications albuterol (PROVENTIL HFA;VENTOLIN HFA) 90 mcg/actuation Inhl HFA Aerosol InhalerIndicatio ns:Acute bronchitis, unspecified organism Inhale 2 Puffs into the lungs every 4 hours as needed for Wheezing. 1 Each 2 3 Active MULTIVITAMIN ORAL Take by mouth. Active pantoprazole (PROTONIX) 40 mg Oral Tablet, Delayed Release (E.C.)Indication s:Gastroesophage al reflux disease with esophagitis, unspecified whether hemorrhage Take 1 Tablet by mouth 2 times daily. 180 Tablet 2 5 Active ergocalciferol (VITAMIN D) 1,250 mcg (50,000 unit) Oral Capsule Take 1 Capsule by mouth once a week. 12 Capsule 3 5 Active busPIRone (BUSPAR) 10 mg Oral TabletIndication s:PTSD (post-traumatic stress disorder),Nightm samia,Adjustment disorder with mixed anxiety and depressed mood Take 1 Tablet by mouth 2 times daily. For anxiety 60 Tablet 5 5 Active desvenlafaxine succinate (PRISTIQ) 50 mg Oral Tablet Sustained Release 24 hrIndications:PT SD (post-traumatic stress disorder),Nightm samia,Adjustment disorder with mixed anxiety and depressed mood Take 1 Tablet by mouth daily. 90 Tablet 3 5 Active ondansetron (ZOFRAN) 4 mg Oral TabletIndication s:Nausea Take 1 Tablet by mouth every 4 hours as needed for Nausea. 60 Tablet 5 5 Active ZEPBOUND 5 mg/0.5 mL SubQ Pen Injector Inject 5 mg under the skin once a week. 5 Active ubrogepant (UBRELVY) 100 mg Oral Tablet Take one tablet by mouth at onset of migraine. May repeat dose in 2 hours one time up to a maximum of 200mg per 24 hours. 16 Tablet 11 5 Active atogepant 60 mg Oral Tablet Take 1 Tablet by mouth daily. 30 Tablet 11 5 Active tirzepatide, weight loss, 7.5 mg/0.5 mL SubQ SolutionIndicati ons:Obesity, Class III, BMI 40-49.9 (morbid obesity) Inject 7.5 mg under the skin once a week. 3 mL 1 5 Active oxyCODONE-acetam inophen (PERCOCET) 5-325 mg Oral Tablet Take 1 Tablet by mouth every 6 hours as needed for Acute Pain (R52) for up to 3 days. 12 Tablet 5 12/21/19 25 Active ciprofloxacin HCl (CIPRO) 500 mg Oral Tablet Take 1 Tablet by mouth 2 times daily for 10 days. 20 Tablet 5 12/28/19 25 Active busPIRone (BUSPAR) 10 mg Oral TabletIndication s:PTSD (post-traumatic stress disorder),Nightm samia,Adjustment disorder with mixed anxiety and depressed mood Take 1 Tablet by mouth 2 times daily. For anxiety 60 Tablet 2 5 11/30/19 25 Discontinu ed(Reorder ) desvenlafaxine succinate (PRISTIQ) 50 mg Oral Tablet Sustained Release 24 hrIndications:PT SD (post-traumatic stress disorder),Nightm samia,Adjustment disorder with mixed anxiety and depressed mood Take 1 Tablet by mouth daily. 90 Tablet 3 5 11/30/19 25 Discontinu ed(Reorder ) ondansetron (ZOFRAN) 4 mg Oral TabletIndication s:Nausea Take 1 Tablet by mouth every 4 hours as needed for Nausea. 30 Tablet 2 5 11/30/19 25 Discontinu ed(Reorder ) rimegepant (NURTEC ODT) 75 mg Oral Tablet, Rapid DissolveIndicati ons:Migraine without aura and without status migrainosus, not intractable Dissolve 1 Tablet by mouth every 48 hours. 18 Tablet 2 5 11/30/19 Discontinu ed(Reorder ) tirzepatide, weight loss, (ZEPBOUND) 5 mg/0.5 mL SubQ Pen Injector Inject 5 mg under the skin once a week. 2 mL 2 5 11/30/19 Discontinu ed(Dose adjustment ) rimegepant (NURTEC ODT) 75 mg Oral Tablet, Rapid DissolveIndicati ons:Migraine without aura and without status migrainosus, not intractable Dissolve 1 Tablet by mouth every 48 hours. 18 Tablet 5 5 12/06/19 Discontinu ed(DELETE- Therapy completed) tirzepatide, weight loss, 7.5 mg/0.5 mL SubQ SolutionIndicati ons:Obesity, Class III, BMI 40-49.9 (morbid obesity) Inject 7.5 mg under the skin once a week. 3 mL 1 5 12/13/19 Discontinu ed(Reorder ) atogepant 60 mg Oral Tablet Take 1 Tablet by mouth daily. 30 Tablet 11 5 12/09/19 Discontinu ed(Reorder ) Hospital, Clinic, or Other Facility Administered Medication Ordered Dose Route Frequency Start Date End Date Status ketorolac (TORADOL) injection 60 mgIndications:Migraine without aura and without status migrainosus, not intractable 60 mg IM ONCE 11/29/2024 11/29/2024 Ended Active Problems Patient Care Coordination No te Formatting of this note migh t be different from the original. 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 Overview (07/08/2023): robotic Gastroesophageal reflux disease without esophagi tis 07/08/2023 Morbid obesity 06/30/2023 Dietary counseling and surveillance 06/15/2023 Ureter, calculus 12/19/2021 Overview (12/19/2021): Added automatically from request for surgery [id number] Normal labor and delivery 10/05/2021 Single delivery by section 10/05/2021 Uterine contractions 09/29/2021 Maternal congenital cardiac anomaly, antepartum 06/06/2021 History of shoulder dystocia in prior 04/09/2021 Overview (04/09/2021): G1~8# 13 oz History of 04/09/2021 Overview (08/28/2021): G3~primary c/section for history of shoulder dystocia and 4th degree laceration Sched 10/07 w/ Green Hx of maternal laceration, 4th degree, currently 04/09/2021 Overview (04/09/2021): G1~ 8# 13 oz History of gestational hypertension 04/09/2021 Overview (06/03/2021): Baseline labs nml. 24hr urine 274 (06/02) Advised ASA 81 mg daily Supervision of other normal , antepartu m 03/04/2021 Overview (07/31/2021): pt GS: declined SAPNA of 10/14/21 by US PNL's nml Anatomy nml, anterior placenta GCT 105 Declined influenza and COVID vaccines Thyroid cyst 02/16/2018 Renal calculus, right 11/19/2017 Hydronephrosis of right kidney 11/19/2017 Pyelonephritis 11/19/2017 Sinus tachycardia 06/08/2017 ASD (atrial septal defect) 06/01/2017 Overview (09/18/2021): Pt unsure but thinks she has ASD. MFM consult completed with previous . Reports her heart defect is resolved. Previous child with similar defect has not required repair echo: NML at 24wk Morbid obesity with BMI of 50.0-59.9, adult 08/17 Overview (09/19/2015): Pre-Gravid BMI 52 growth scan @ 32--->09/13/15 EFW 52% @ 36----> PCOS (polycystic ovarian syndrome) 01/10/2015 Assessment & Plan (03/12/2024 11:03 PM EST): Gestational hypertension, third trimester Resolved Problems Problem Noted Date Diagnosed Date Resolved Date False labor before 37 comple sander weeks of gestation 09/18/2021 09/25/2021 Encounter for suspected PROM , with rupture of membranes not found 08/23/2021 08/28/2021 Blunt abdominal trauma 06/23/202107/31 25 weeks gestation of 06/23/2021 07/31/2021 Morbid obesity 11/19/2017 04/08/2023 Overview (09/30/2021): Pregravid BMI 56 HgbA1c: 4.9 Growth US 28 32wk EFW 2,233 76%, cephalic 38wk EFW 4,333 >99%, AC testing ordered at 36wk S/P 08/12/2017 04/09/2021 Third trimester bleeding 07/31/2017 History of maternal third de gree perineal laceration, currently , third trimester 06/15/2017 09/03/2017 Infectious disease in mother during third trimester of 06/08/2017 09/03/2017 Obesity (BMI 35.0-39.9 without comorbidity) 06/01/2017 04/09/2021 Overview (06/01/2017): US ordered 06/01/17 with flank pain, antepartum 05/25/2017 07/01/2017 Vulval or perineal trauma du ring delivery with problem 05/25/2017 09/03/2017 Overview (07/21/2017): Primary C/S requested and sched 08/12 w/ [facility] Bartholin cyst 02/25/2017 07/21/2017 Overview (02/25/2017): First occurrence during this Seen in ER when cyst ruptured Group B Streptococcus urinar y tract infection affecting in first trimester 02/17/2017 0 08/17/2017 Encounter for supervision of normal in second trimester 01/18/2017 08/17/2017 Overview (06/08/2017): MD pt Declined Quad screen. First delivery complicated by third degree perineal laceration requiring repair in OR. Ms. Padgett requesting delivery with this . History of hole in heart from Ms. Padgett. Not documented or confirmed in chart. GCT 117 contractions 10/01/2015 016 Encounter for suspected deven ature rupture of membranes, with rupture of membranes not found 09/30/2015 10/01/2015 Supervision of normal first in second trimester 06/10/2015 12/26/2015 Overview (10/28/2015): pt per request It's a GIRL!! Thea Declined Quad/CF testing. Normal anatomy scan. Female fetus. TDaP reaction. Rubella non-immune status, antepartum 06/10/2015 07/13/2016 Overview (08/12/2015): Offer MMR pp Unspecified emotional distur bance of childhood or adolescence 03/19/2017 False labor after 37 weeks o f gestation without delivery 10/01/2015 Encounters Date Type Department Care Team Description 12/17/2024 1:26 PM EDT - 12/17/2024 2:58 PM EDT [facility] [address] [address] Nina Amaral MD Pyelonephritis (Primary Dx) Discharge Disposition: Home or Self Care 12/12/2024 Refill [facility] [address] [place] [address] Jim Bain APRN Medication Refill 12/11/2024 Telephone [facility] [place] [facility] [address] [place] [address] Jessica Leach APRN Prior Authorization ([employer] [facility]) 12/05/2024 7:40 AM EDT Telemedicine [facility] [address] [place] [address] Jessica Leach APRN Intractable migraine without aura and without status migrainosus (Primary Dx); IIH (idiopathic intracranial hypertension) 12/05/2024 Orders Only [facility] [address] [place] [address] Neela Serrano RMA IIH (idiopathic intracranial hypertension) (Primary Dx) 12/05/2024 Telephone [facility] [address] [place] [address] Neela Serrano, RMA Procedure (Lumbar puncture) 12/05/2024 Specialty Pharmacy [facility] [address] [place] [address] Yannick Mora, PharmD Pharmacy Migraine Medication Management (Qulipta) 12/05/2024 Specialty Pharmacy [facility] [address] [place] [address] Yannick Mora, PharmD Pharmacy Migraine Medication Management (Ubrelvy ) 12/01/2024 Results Follow-Up [address] [address] Jim Bain APRN CBC, COMPREHENSIVE METABOLIC PANEL, HEMOGLOBIN A1C, Additional followed-up results: 2 11/29/2024 8:00 AM EDT Office Visit [address] [address] Jim Bain APRN Annual physical exam (Primary Dx); Migraine without aura and without status migrainosus, not intractable; PTSD (post-traumatic stress disorder); Nightmares; Adjustment disorder with mixed anxiety and depressed mood; Nausea; Obesity, Class III, BMI 40-49.9 (morbid obesity) 10/30/2024 Refill [facility] [address] [place] [address] Panchito Mann MD Medication Refill 10/10/2024 Telephone [facility] [address] [place] [address] Shameka Reese MD Other (Pt wanting to confirm fax came from short term disability 10/07) 10/06/2024 8:00 AM EDT Office Visit [facility] [address] [place] [address] Jim Bain APRN Migraine without aura and without status migrainosus, not intractable (Primary Dx); Nausea 10/06/2024 Telephone [facility] [address] [place] [address] Shameka Reese MD Medication Management ( Disp Refills Start End /ketorolac (TORADOL) 10 mg Oral Tablet 20 Tablet 0 10/06/2024 10/11/2024 /Sig - Route: Take 1 Tablet by mouth every 6 hours as needed for Pain for up to 5 days. - Oral /Sent to pharmacy as: ketorolac 10 mg tablet (TORADOL) /E-Prescribing Status: Receipt confirmed by pharmacy (10/06/2024 8:09 AM EDT) //ketorolac (TORADOL) 10 mg Oral Tablet [[id number]]//) 10/05/2024 Travel 10/05/2024 Results Follow-Up [facility] [address] [place] [address] Corinna Ibrahim APRN VITAMIN B1 (THIAMINE) WHOLE BLOOD -REF LAB, VITAMIN B12/ FOLIC ACID, VITAMIN D 25 HYDROXY, Additional followed-up results: 3 09/30/2024 Results Follow-Up [facility] [address] [place] [address] Jim Bain APRN MRI BRAIN W WO CONTRAST 09/29/2024 8:40 AM EDT - 09/29/2024 11:59 PM EDT Hospital Encounter [facility] [address] [place] [address] Jim Bain APRN S/P laparoscopic sleeve gastrectomy; Screening for endocrine, nutritional, metabolic and immunity disorder; Screening for unspecified condition Discharge Disposition: Home or Self Care 09/29/2024 7:30 AM EDT - 09/29/2024 8:39 AM EDT Hospital Encounter [facility] [address] [place] [address] Jim Bain APRN Migraine without aura and without status migrainosus, not intractable Discharge Disposition: Home or Self Care 09/28/2024 Telephone [facility] [address] [place] [address] Gael Baker MA Other (Accreditation) 09/25/2024 Refill [facility] [address] [place] [address] Panchito Mann MD Medication Refill from Last 3 Months Immunizations Immunization Administration Dates Next Due DTaP 03/22/1998, 5,1994,1994,1994 HPV Quadrivalent 05/23/2012,10/25/2008, 9 Hepatitis B, Unspecified Formulation 1994, 1994,1994 HiB, Unspecified Formulation 03/25/1995, 1994,1994,1994 IPV 03/22/1998, 5,1994,1994 Influenza Vaccine, Unspecifi ed Formulation 01/18/2010 MMR 08/14/2017,03/22/1998,03/25/1995 Td, Unspecified Formulation 10/13/2004 Tdap 08/14/2017(Deferred: Contraindication),08/13/2017(Deferred: Other - pt received 06/15/17),06/15/2017,11/08/2015,10/09/19 16,08/30/2015 Surgical History Surgery Date Site/Laterality Comments TONSILLECTOMY 04/19/2000 - 04/18/2001 TONSILLECTOMY 04/19/2003 - 04/18/2004 VAGINA SURGERY 11/06/2015 repair of third degree obstetrical laceration SECTION 08/12/2017 Abdomen/N/A PRIMARY SECTION VIA LOW TRANSVERSE UTERINE INCISION AT 1542; Surgeon: Lisa Hannon MD; Location: [facility]; Service: Gynecology CYSTOSCOPY 11/19/2017 Right CYSTOSCOPY RIGHT STENT INSERTION; Surgeon: Sam Daily MD; Location: ED MAIN OR; Service: Urology Medical devices from this surgery are in the Medical Devices section. SECTION 10/05/2021 N/A REPEAT SECTION. skin incision at 1037, uterine at 1040, delivered at 1041, placenta [id number].; Surgeon: Marline Byrnes MD; Location: [facility]; Service: Obstetrics CYSTOSCOPY 12/25/2021 Right cystoscopy right stent removal ; Surgeon: Juan Mackenzie MD; Location: ED MAIN OR; Service: Urology GASTRECTOMY 06/30/2023 Abdomen/N/A Robotic sleeve gastrectomy; Surgeon: Lula Ruvalcaba MD; Location: [facility]; Service: General Medical History Medical History Date Comments GERD (gastroesophageal reflux disease) PCOS (polycystic ovarian syndrome) Vulval or perineal trauma du ring delivery with problem 05/25/2017 ASD (atrial septal defect) 06/01/2017 resol fazal Renal calculus, right 11/19/2017 Urinary tract infection history of Depression Pneumonia 03/11 Other seasonal allergic rhinitis Family History Medical History Relation Name Comments Diabetes Father Hypertension Father Mult Sclerosis Maternal Grandfather Dementia Maternal Grandmother Eclampsia Mother Migraines Mother Spont Abortions Mother Stroke Mother Diabetes Paternal Grandfather Heart Disease Paternal Grandfather Brain Cancer Paternal Grandmother Cancer Paternal Grandmother Depression Paternal Grandmother brain c a brain aneurysm Paternal Grandmother Anesth Problems Neg Hx Relation Name Status Comments Father Alive Maternal Grandfather Alive Maternal Grandmother Alive Mother Alive Paternal Grandfather Alive Paternal Grandmother Social History Tobacco Use Types Packs/Day Years Used Date Smoking Tobacco: Never Passive Smoke Exposure: Never Smokeless Tobacco: Never Tobacco Cessation:Counseling Given: Not Answered Alcohol Use Standard Drinks/Week Comments Not Currently 0 (1 standard drink = 0.6 oz pur e alcohol) [facility] Utilities Answer Date Recorded In [...] money to get more. Never true 07/01/2023 [facility] IP Transportation Answer D ate [...] on file Sexual Orientation Not on file Obstetrics History Para Term AB IAB SAB Ectopic Multiple Livin g Live Births 4 3 3 0 1 0 1 0 0 3 3 Date Outcome GA Total Labor Labor/2nd/3rd Weight Sex Type Anes PTL Alexia A1 A5 Name Clin 2015 Term 39w 5d 24h 05m 24h 05m 8 lb 13.6 oz (4.015 kg) F Vag-S pont Epidur al N Livin g 8 9 von Hoene, Lisa Sofie, MD Complications:Shoulder (gird le) dystocia during labor and delivery Delivery Location:[facility] 2016 SAB 10w 0d SAB 2017 Term 39w 0d 0h 01m 0h 01m 8 lb 8.2 oz (3.86 kg) F CSP Spinal N Livin g 9 9 [place] ,LORE PEACE BABY Lisa Hannon MD Complications:Atrial septal defect,Vulval or perineal trauma during delivery with problem Delivery Location:[facility] ([facility]) Comments:none 2021 Term 38w 5d 0h 03m 0h 03m 8 lb 6 oz (3.799 kg) M 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 [address] Jessica Leach, AGRICULTURAL EQUIPMENT DESIGN ENGINEER [address] [facility] [[email or web address] [address] [place] [address] Marylu Gates PA-C [address] [place] [address] [address] [place] [phone] 12/29/2024 8:40 AM EDT Office Visit [facility] [address] [place] [address] Jonathan Saldana, OD [address] [place] [address] 12/29/2024 3:00 PM EDT Appointment [facility] [address] [place], [place] [id number] Jessica Leach, AGRICULTURAL EQUIPMENT DESIGN ENGINEER [address] [place] [address] 03/09/2025 8:00 AM EST Office Visit [facility] [address] [place] [address] Jessica Leach, AGRICULTURAL EQUIPMENT DESIGN ENGINEER [address] [place] [address] Health Maintenance Due Date Last Done Comments HPV/Pap Cotest 2024 Cervical Cancer Screening 04/09/2024 Pap Smear 04/09/2024 04/09/2021, 06/10/2015 COVID-19 Vaccine ( season) 2024 Influenza Vaccine (#1) 2024 7 (Declined), 05/19/2016 (Declined), 03/27/2015 (Declined), Additional history exists Annual Wellness Exam 11/29/2025 11/29/2024, 05/19/19 17 DTaP/TDaP/Td (9 - Td or Tdap) 06/15/2027 06/15/2017, 11/08/2015, 10/09/2015, Additional history exists Hepatitis B Vaccine Completed 1994, 1994, 1994 Meningococcal B Vaccine Aged Out No l onger eligible based on patient's age to complete this topic Pneumococcal Vaccine 0-49 Aged Out No longer eligible based on patient's age to complete this topic Goals Goal Patient Goal Type Associated Problems Recent Progress Patient-Stated? Author Blood Pressure < 140/90 Blood Pressure 100/60(2024 2:54 PM EDT) No Gisselle Del Cid CCMA Maintain a healthy diet, exercise regularly and maintain an ideal body weight General No Sol House RMA Medical Devices Implanted Type Area Psychiatric Nurse Practitioner Device Identifier Shelf Expiration Date Model / Serial / Lot Stent Contour 7 X 24 #[id number] - [id number] Implanted:Qty: 1 on 11/19/2017 by Sam Daily MD at [facility] Stent Right: Ureter [employer]:MICROVASIVE: UROLOGY 11/09/2019 [id number] / / [id number] Procedures Procedure Name Priority Date/Time Associated Diagnosis Comments HUMAN CHORIONIC GONADOTROPIN QUANTITATIVE STAT 12/17/2024 2:07 PM EDT BASIC METABOLIC PANEL STAT 12/17/2024 2:07 PM EDT URINALYSIS REFLEX STAT 12/17/2024 1:5 6 PM EDT UA W/REFLEX TO CULTURE STAT 12/17/2024 1:56 PM EDT URINE CULTURE (NO STAIN) STAT 12/17/2024 1:56 PM EDT EXTRA MARIE URINE CX STAT 12/17/2024 1 :56 PM EDT THYROID STIMULATING HORMONE Routine 11/29/2024 8:17 AM EDT Annual physical exam LIPID SCREEN Routine 11/29/2024 8:17 AM EDT Annual physical exam HEMOGLOBIN A1C Routine 11/29/2024 8:17 AM EDT Annual physical exam COMPREHENSIVE METABOLIC PANEL Routine 11/29/2024 8:17 AM EDT Annual physical exam CBC Routine 11/29/2024 8:17 AM EDT Annual physical exam MRI BRAIN W WO CONTRAST Routine 09/29/2024 8:41 AM EDT Migraine without aura and without status migrainosus, not intractable PREALBUMIN Routine 09/29/2024 8:27 AM EDT S/P laparoscopic sleeve gastrectomy Screening for endocrine, nutritional, metabolic and immunity disorder Screening for unspecified condition IRON+TIBC Routine 09/29/2024 8:27 AM EDT S/P laparoscopic sleeve gastrectomy Screening for endocrine, nutritional, metabolic and immunity disorder Screening for unspecified condition CALCIUM LEVEL TOTAL Routine 09/29/2024 8 :27 AM EDT S/P laparoscopic sleeve gastrectomy Screening for endocrine, nutritional, metabolic and immunity disorder Screening for unspecified condition VITAMIN D 25 HYDROXY Routine 09/29/2024 8:27 AM EDT S/P laparoscopic sleeve gastrectomy Screening for endocrine, nutritional, metabolic and immunity disorder Screening for unspecified condition VITAMIN B12/ FOLIC ACID Routine 09/29/2024 8:27 AM EDT S/P laparoscopic sleeve gastrectomy Screening for endocrine, nutritional, metabolic and immunity disorder Screening for unspecified condition VITAMIN B1 (THIAMINE) WHOLE BLOOD -REF LAB Routine 09/29/2024 8:27 AM EDT S/P laparoscopic sleeve gastrectomy Screening for endocrine, nutritional, metabolic and immunity disorder Screening for unspecified condition DATA MANAGER CYTOLOGY REQUEST (PAP ONLY) Routine 04/09/2021 11:45 AM EST Supervision of other normal , antepartum from Last 3 Months or Most Recently Relevant to Health Maintenance Results * HUMAN CHORIONIC GONADOTROPIN QUANTITATIVE (12/17/2024 2:07 PM EDT) Pathologist [facility] Hcg Quant <1 <5 mIU/mL 12/17/2024 2:28 PM EDT [facility] Blood VENOUS BLOOD / Unknown Venipuncture / Unknown 12/17/2024 2:07 PM EDT 12/17/2024 2:09 PM EDT Narrative [facility] - 12/17/2024 2:28 PM EDT Female [...] Lacy APRN CHEMISTRY ORDERABLES Final R esult [facility] [address] [place] [address] * BASIC METABOLIC PANEL (12/17/2024 2:07 PM EDT) Sodium 138 136 - 145 mmol/L 12/17/2024 2:24 PM EDT [facility] Potassium 3.9 3.5 - 5.0 mmol/L 12/17/2024 2:24 PM EDT [facility] Chloride 103 98 - 107 mmol/L 12/17/2024 2:24 PM EDT [facility] Total CO2 23 22 - 29 mmol/L 12/17/2024 2:24 PM T [facility] Anion Gap 12 7 - 16 mmol/L 12/17/2024 2:24 PM T [facility] Calcium 9.0 8.6 - 10.4 mg/dL 12/17/2024 2:24 PM T [facility] Glucose Lvl 96 70 - 99 mg/dL 12/17/2024 2:24 PM T [facility] BUN 10 6 - 20 mg/dL 12/17/2024 2:24 PM T [facility] Creatinine 0.79 0.51 - 1.30 mg/dL 12/17/2024 2:24 PM T [facility] eGFR (CKD-EPIcr 2020) 103 >=60 mL/min/1.7 3 m2 12/17/2024 2:24 PM T [facility] Comment:Estimated GFR was ca lculated using the CKD-EPIcr (2020) equation refit without race. The equation is recommended by the National Kid[employer] - [place] [employer] of Nephrology Task Force. Blood VENOUS BLOOD / Unknown Venipuncture / Unknown 12/17/2024 2:07 PM EDT 12/17/2024 2:09 PM EDT us Nasir Lacy APRN CHEMISTRY ORDERABLES Final R esult [facility] [address], [place] [id number] * (ABNORMAL) URINALYSIS REFLEX (12/17/2024 1:56 PM EDT) UA Color [place] 12/17/2024 2:08 PM EDT [facility] UA Appear Slightly Cloudy(A) Clear 12/17/2024 2:08 PM EDT [facility] UA Glucose Negative Negative mg/dL 12/17/2024 2:08 PM EDT [facility] UA Ketones Trace (5 mg/dL)(A) Negative mg/dL 12/17/2024 2:08 PM EDT [facility] UA Blood Large(A) Negative 12/17/2024 2:08 PM EDT [facility] UA pH 6.0 5.0 - 8.0 pH 12/17/2024 2:08 PM EDT [facility] UA Protein >=300(A) Negative mg/dL 12/17/2024 2:08 PM EDT [facility] UA Urobilinogen 2.0(A) <=1 mg/dL 2:08 PM EDT [facility] UA Bili 12/17/2024 2:08 PM EDT [facility] Comment:Unable to report. Ca nnot rule out interfering substances that may yield false positive results. Consider correlation with serum bilirubin result. UA Nitrite Positive(A) Negative 12/17/2024 2:08 PM EDT [facility] UA Leuk Est Small(A) Negative 12/17/2024 2:08 PM EDT [facility] UA Spec Grav >=1.030 1.001 - 1.035 no units 12/17/2024 2:08 PM EDT [facility] Comment:Reference range tobias d for random specimens only. UA WBC 30(H) 0 - 4 /HPF 12/17/2024 2:08 PM EDT [facility] UA RBC 12(H) 0 - 3 /HPF 12/17/2024 2:08 PM EDT [facility] UA Squam Epi 2+ /LPF 12/17/2024 2:08 PM EDT [facility] UA Mucus 1+ /LPF 12/17/2024 2:08 PM EDT [facility] UA Amorph 1+ /HPF 12/17/2024 2:08 PM EDT [facility] UA Bacteria 1+(A) Negative /HPF 12/17/2024 2:08 PM EDT [facility] Urine STRUCTURE OF URINARY TRACT PROPER / Unknown 12/17/2024 1:56 PM EDT 12/17/2024 1:58 PM EDT Nasir Lacy APRN URINE ORDERABLES Final Resul t Performing Organization Address [facility]/ZIP Co de Phone Number [facility] [address] [place] [address] * EXTRA MARIE URINE CX (12/17/2024 1:56 PM EDT) Urine STRUCTURE OF URINARY TRACT PROPER / Unknown 12/17/2024 1:56 PM EDT 12/17/2024 1:58 PM EDT Nasir Lacy APRN MICROBIOLOGY - GENERAL ORDER KIANA Final Result Performing Organization Address [facility]/ZIP Co de Phone Number [facility] [address] [place] [address] * (ABNORMAL) URINE CULTURE (NO STAIN) (12/17/2024 1:56 PM EDT) Culture Positive Growth(A) 12/19/2024 11:01 AM EDT [facility] Culture >100,000 CFU/mL Klebsiella pneumoniae SUSCEPTIBI LITY RESULT 12/19/2024 11:01 AM EDT [facility] Urine STRUCTURE OF URINARY TRACT PROPER / [...] RESULT <=0.5/9.5 ug/mL: Susceptible us Nasir Lacy AGRICULTURAL EQUIPMENT DESIGN ENGINEER MICROBIOLOGY - GENERAL ORDER KIANA Final Result [facility] [address] [facility] , [place] [address] * CBC (11/29/2024 8:17 AM EDT) WBC [...] 11/29/2024 8:17 AM EDT us Jim Bain AGRICULTURAL EQUIPMENT DESIGN ENGINEER HEMATOLOGY ORDERABLES Final Result [facility] [address] [facility] , [address] [place] [phone] * THYROID STIMULATING HORMONE (11/29/2024 8:17 AM EDT) Pathologist [facility] TSH 1.690 0.270 - 4.200 mcIU/mL 11/29/2024 6:23 PM EDT [facility] Blood VENOUS BLOOD / Unknown Venipuncture / Unknown 11/29/2024 8:17 AM EDT 11/29/2024 8:17 AM EDT Narrative [facility] - 11/29/2024 6:23 PM EDT Ingestion of abhinav doses of biotin (>5 mg/day) taken within 8 hours of drawing blood sample can interfere with this immunoassay test. Jim Bain APRN CHEMISTRY ORDERABLES Final R esult Performing Organization Address [facility] Co de Phone Number [facility] [address] [facility] , [place] [address] * HEMOGLOBIN A1C (11/29/2024 8:17 AM EDT) Pathologist [facility] Hgb A1C 4.8 4.2 - 5.6 % 11/29/2024 5:12 PM EDT [facility] Est. Avg Glucose 91 mg/dL 11/29/2024 5:12 PM EDT [facility] Blood VENOUS BLOOD / Unknown Venipuncture / Unknown 11/29/2024 8:17 AM EDT 11/29/2024 8:17 AM EDT Narrative [facility] - 11/29/2024 5:12 PM EDT REFERENCE RANGE: Normal: 4.0-5.6% Pre-diabetes: 5.7-6.4% Provisional diagnosis of diabetes: >6.4% Hgb F>10% and anything which shortens red cell survival, such as hemolytic anemia, or unstable hemoglobin variants such as HbSS, HbSC, or HbCC, will lower the HbA1c value associated with a given level of glycemic control. Jim Bain APRN CHEMISTRY ORDERABLES Final R esult Performing Organization Address [facility] Co de Phone Number [facility] [employer] [facility] [address] [facility] , [place] [address] * (ABNORMAL) LIPID SCREEN (11/29/2024 8:17 AM EDT) Cholesterol 184 <200 mg/dL 11/29/2024 6:23 PM EDT [facility] Comment: < 200 Desirable 200 - 239 Borderline High >= 240 High Triglyceride 64 <150 mg/dL 11/29/2024 6:23 PM EDT [facility] Comment: < 150 Normal 150 - 199 Borderline High 200 - 499 High >= 500 Very High HDL 37(L) >=40 mg/dL 11/29/2024 6:23 PM EDT [facility] Comment: > 60 Optimal 40 - 60 Acceptable < 40 Low LDL Calculated 135(H) <100 mg/dL 11/29/2024 6:23 PM EDT [facility] Comment: < 100 Optimal 100 - 129 Near or above optimal 130 - 159 Borderline High 160 - 189 High >= 190 Very High The National Institutes of Health (NIH) equation is used for all lipid panels that report calculated LDL (LDL-C). Non-HDL-C Calculated 147(H) <=129 mg/dL 11/29/2024 6:23 PM EDT [facility] Comment: <130 Desirable 130-159 Above Desirable 160-189 Borderline High 190-219 High >= 220 Very High Fasting Specimen? Unknown None 025 6:23 PM EDT [facility] Blood VENOUS BLOOD / Unknown Venipuncture / Unknown 11/29/2024 8:17 AM EDT 11/29/2024 8:17 AM EDT us Jim Bain AGRICULTURAL EQUIPMENT DESIGN ENGINEER CHEMISTRY ORDERABLES Final R esult [facility] [employer] [facility] , [place] [address] * COMPREHENSIVE METABOLIC PANEL (11/29/2024 8:17 AM EDT) Sodium 137 136 - 145 mmol/L 11/29/2024 6:23 PM EDT [facility] Potassium 3.8 3.5 - 5.0 mmol/L 11/29/2024 6:23 PM EDT [facility] Chloride 103 98 - 107 mmol/L 11/29/2024 6:23 PM EDT [facility] Total CO2 23 22 - 29 mmol/L 11/29/2024 6:23 PM EDT [facility] Anion Gap 11 7 - 16 mmol/L 11/29/2024 6:23 PM EDT [facility] Calcium 8.8 8.6 - 10.4 mg/dL 11/29/2024 6:23 PM EDT [facility] Glucose Lvl 72 70 - 99 mg/dL 11/29/2024 6:23 PM EDT [facility] BUN 8 6 - 20 mg/dL 11/29/2024 6:23 PM EDT [facility] Creatinine 0.78 0.51 - 1.30 mg/dL 11/29/2024 6:23 PM EDT [facility] Albumin 4.1 3.5 - 5.2 gm/dL 11/29/2024 6:23 PM EDT [facility] Total Protein 6.9 6.4 - 8.3 gm/dL 11/29/2024 6:23 PM EDT [facility] Bili Total 0.6 0.2 - 1.3 mg/dL 11/29/2024 6:23 PM EDT [facility] ALT 8 <=41 U/L 11/29/2024 6:23 PM EDT [facility] AST 17 <=40 U/L 11/29/2024 6:23 PM EDT [facility] Alk Phos 57 36 - 123 U/L 11/29/2024 6:23 PM EDT [facility] eGFR (CKD-EPIcr 2020) 104 >=60 mL/min/1.7 3 m2 11/29/2024 6:23 PM EDT [facility] Comment:Estimated GFR was ca lculated using the CKD-EPIcr (2020) equation refit without race. The equation is recommended by the National Kidney Foundation - [place] [employer] of Nephrology Task Force. Blood VENOUS BLOOD / Unknown Venipuncture / Unknown 11/29/2024 8:17 AM EDT 11/29/2024 8:17 AM EDT us Jim Bain AGRICULTURAL EQUIPMENT DESIGN ENGINEER CHEMISTRY ORDERABLES Final R esult [facility] [address] [facility] , [place] [address] * MRI BRAIN W WO CONTRAST (09/29/2024 8:41 AM EDT) Anatomical Region Laterality Modality Head Magnetic Resonan ce 09/29/2024 8:41 AM EDT Impressions 09/29/2024 9:00 AM EDT No acute or enhancing abnormality. - Note: Radiology results need to be interpreted within a comprehensive clinical context. If you have questions about the radiology report, please contact the office of the ordering clinician. Narrative 09/29/2024 9:00 AM EDT MRI BRAIN W WO CONTRAST 09/29/2024 8:41 AM CLINICAL HISTORY: G43.009-Migraine without aura, not intractable, without status [id number]. COMPARISON: None. PROCEDURE COMMENTS: Multiplanar multiecho MR imaging of the brain per protocol before and following IV contrast administration. Gadolinium contrast given as recorded in Epic. FINDINGS: Midline structures normally formed. Ventricles normal. No evidence of acute stroke, mass, or hemorrhage. Diffusion imaging normal. No abnormal enhancement. Major vascular flow voids preserved, suggesting patency. Included portions of the paranasal sinuses, mastoids, and orbits unremarkable. Procedure Note Shyam Gómez MD - 09/29/2024 MRI BRAIN W WO CONTRAST 09/29/2024 8:41 AM CLINICAL HISTORY: G43.009-Migraine without aura, not intractable,without status [id number]-CM. COMPARISON: None. PROCEDURE COMMENTS: Multiplanar multiecho MR imaging of the brain perprotocol before and following IV contrast administration. Gadolinium contrast givenas recorded in Epic. FINDINGS: Midline structures normally formed. Ventricles normal. No evidence ofacute stroke, mass, or hemorrhage. Diffusion imaging normal. No abnormal enhancement. Major vascular flow voids preserved, suggesting patency. Included portions of the paranasal sinuses, mastoids, and orbitsunremarkable. IMPRESSION: No acute or enhancing abnormality. - Note: Radiology results need to be interpreted within a comprehensiveclinical context. If you have questions about the radiology report, please contactthe office of the ordering clinician. us Jim Bain AGRICULTURAL EQUIPMENT DESIGN ENGINEER IMG MRI ORDERABLES Final Res ult * IRON+TIBC (09/29/2024 8:27 AM EDT) Iron 115 30 - 160 mcg/dL 09/29/2024 4:09 PM EDT [facility] Transferrin 255 200 - 360 mg/dL 09/29/2024 4:09 PM EDT [facility] Transferrin Saturation 32 20 - 50 % 09/29/2024 4:09 PM EDT [facility] TIBC 357 250 - 400 mcg/dL 09/29/2024 4:09 PM EDT [facility] Blood VENOUS BLOOD / Unknown Venipuncture / Unknown 09/29/2024 8:27 AM EDT 09/29/2024 8:27 AM EDT Corinna Ibrahim APRN CHEMISTRY ORDERABLES Fi nal Result Performing Organization Address [facility] de Phone Number [facility], [address] , [place] [phone] * VITAMIN B12/ FOLIC ACID (09/29/2024 8:27 AM EDT) Vitamin B12 379 232 - 1,245 pg/mL 09/29/2024 4:59 PM EDT [facility] Folate 8.58 >=4.80 ng/mL 09/29/2024 4:59 PM EDT [facility] Blood VENOUS BLOOD / Unknown Venipuncture / Unknown 09/29/2024 8:27 AM EDT 09/29/2024 8:27 AM EDT Narrative [facility] - 09/29/2024 4:59 PM EDT Ingestion of abhinav doses of biotin (>5 mg/day) taken within 8 hours of drawing blood sample can interfere with this immunoassay test. Corinna Ibrahim APRN CHEMISTRY ORDERABLES Fi nal Result Performing Organization Address [facility] Co de Phone Number [place] [employer] [facility], [address] , [place] [address] * (ABNORMAL) VITAMIN D 25 HYDROXY (09/29/2024 8:27 AM EDT) Vit D 25 OH 18.1(L) 30.0 - 150.0 ng/mL 09/29/2024 4:59 PM EDT [facility] Comment: Preferred: >= 30 ng/mL Insufficient: 21-29 ng/mL Deficient <= 20 ng/mL Possible Toxicity: >150 ng/mL Samples should not be taken from patients receiving therapy with high biotin doses (i.e. > 5 mg/day) until at least 8 hours following the last biotin administration. Blood VENOUS BLOOD / Unknown Venipuncture / Unknown 09/29/2024 8:27 AM EDT 09/29/2024 8:27 AM EDT Corinna Ibrahim AGRICULTURAL EQUIPMENT DESIGN ENGINEER CHEMISTRY ORDERABLES Fi nal Result [facility] [facility] [address] [facility], [place] [address] * VITAMIN B1 (THIAMINE) WHOLE BLOOD -REF LAB (09/29/2024 8:27 AM EDT) Pathologist [facility] Vit B1 WB 96 70 - 180 nmol/L 10/04/2024 4:19 PM EDT [employer] Comment: INTERPRETIVE INFORMATION: Vitamin B1, Whole Blood This assay measures the concentration of thiamine diphosphate (TDP), the primary active form of vitamin B1. Approximately 90 percent of vitamin B1 present in whole blood is TDP. Thiamine and thiamine monophosphate, which comprise the remaining 10 percent, are not measured. This test was developed and its performance characteristics determined by [employer]. It has not been cleared or approved by the [place] Food and Drug Administration. This test was performed in a CLIA certified laboratory and is intended for clinical purposes. Performed By: [facility] [address] [place] [id number] [employer] Supervisor: Panchito Jeffery MD, PhD CLIA Number: [id number] Blood VENOUS BLOOD / Unknown Venipuncture / Unknown 09/29/2024 8:27 AM EDT 09/29/2024 8:27 AM EDT Corinna Nick Ibrahim AGRICULTURAL EQUIPMENT DESIGN ENGINEER CHEMISTRY ORDERABLES Fi nal Result [employer] [facility] [address] [place] [address] * PREALBUMIN (09/29/2024 8:27 AM EDT) Prealbumin 23.8 20.0 - 40.0 mg/dL 09/29/2024 4:59 PM EDT [facility] Blood VENOUS BLOOD / Unknown Venipuncture / Unknown 09/29/2024 8:27 AM EDT 09/29/2024 8:27 AM EDT Corinna Ibrahim AGRICULTURAL EQUIPMENT DESIGN ENGINEER CHEMISTRY ORDERABLES Fi nal Result Performing Organization Address City/[facility] Co de Phone Number [facility] [address] [place] [address] , [place] [address] * CALCIUM LEVEL TOTAL (09/29/2024 8:27 AM EDT) Calcium 9.1 8.6 - 10.4 mg/dL 09/29/2024 4:09 PM EDT [facility] Blood VENOUS BLOOD / Unknown Venipuncture / Unknown 09/29/2024 8:27 AM EDT 09/29/2024 8:27 AM EDT Corinna Ibrahim APRN CHEMISTRY ORDERABLES Fi nal Result Performing Organization Address City/[facility] Co de Phone Number [facility] [address] , [place] [address] * DATA MANAGER CYTOLOGY REQUEST (PAP ONLY) (04/09/2021 11:45 AM EST) CASE REPORT Gynecologic Cytology Report Case: [id number] Authorizing Provider: Anastacia Kraft APRN Collected: 04/09/2021 1145 Ordering Location: [facility] Received: 04/09/2021 1145 First Screen: Sharon Persaud, CT Specimen: LIQUID-BASED PAP - CERVICAL/ENDOCERV ICAL, Cervix, Endocervical 04/10/2021 3:19 PM EST [facility] PAP FINAL DIAGNOSIS Negative for intraepithelial lesion or malignancy 04/10/2021 3:19 PM EST [facility] at 1519 EST MICROSCOPIC DESCRIPTION Microscopic examination is performed and the findings corroborate the diagnosis. 04/10/2021 3:19 PM EST [facility] PAP SMEAR ADEQUACY Satisfactory for evaluation 04/10/2021 3:19 PM EST [facility] ENDOCERVICAL T-ZONE Transformation zone absent. This is not unusual in a woman 04/10/2021 3:19 PM EST [facility] EMBEDDED IMAGES 3:19 PM EST [facility] PAP DISCLAIMER The Pap Smear is a screening test that aids in the detection of cervical cancer and cancer precursors. Both false positive and false negative results can occur. The test should be used at regular intervals, and positive results should be confirmed before definitive therapy. Processed using the ThinPrep Machine Stone Polisher Automated cytology screening device (TrackIF). 04/10/2021 3:19 PM EST [facility] Thin Prep ENDOCERVICAL STRUCTURE / Unknown 04/09/2021 11:45 AM EST 04/09/2021 11:45 AM EST Anastacia Kraft AGRICULTURAL EQUIPMENT DESIGN ENGINEER CYTOLOGY ORDERABLES Final Result [facility] [address] [place], [place] [phone] from Last 3 Months or Most Recently Relevant to Health Maintenance Insurance [employer] [facility] CHOICE PLUS [address] [employer] Advance Directives For more information, please contact: [phone] * Full Code (Latest Code Status on File) Date Activated Date Inactivated Comments 06/30/2023 2:01 PM 07/01/2023 8:02 PM * Full Code Date Activated Date Inactivated Comments 10/05/2021 2:04 AM 10/07/2021 4:10 PM * Full Code Date Activated Date Inactivated Comments 11/19/2017 1:26 AM 11/23/2017 11:59 PM * Full Code Date Activated Date Inactivated Comments 08/12/2017 6:25 PM 08/14/2017 7:08 PM * Full Code Date Activated Date Inactivated Comments 05/25/2017 7:15 AM 05/26/2017 1:49 AM Care Teams Lard Maker Relationship Specialty Start Date End Date Shameka Reese MD [address] [place] [phone] PCP - General Family Medicine 05/19/16
[2024-12-19 11:40] LABS: Hepatitis C Ab Qual. W/ RFX NEGATIVE (Negative)
[2024-12-19 12:07] LABS: Urine Pregnancy, HCG Qual. Negative (Negative)
[2024-12-19] MEDS: SODIUM CHLORIDE 0.9% 10ML SYR (RAD ONLY) 10 ML IV (12:26)
[2024-12-19] MEDS: IOPAMIDOL-370 (76%);100ML BOTTLE 75 ML IV (12:26)
--- NOTE | 2024-12-19 13:01 | PC.NURSE ---
call made to rad, scan is locked and being read
[2024-12-19] MEDS: SULFA/TRIMETHOPRIM 1 TABLET 1 EACH PO (13:43)
== END 2024-12-19 13:49 | disposition home or self-care (01) ==
PROVIDERS: Emergency Provider Student in an Organized Health Care Education/Training Program; PCP Family Medicine
DX: R10.9 Unspecified abdominal pain (principal); N12 Tubulo-interstitial nephritis, not specified as acute or chronic
CPT/HCPCS: 74178; 80053; 81001; 81025; 83605; 83690; 85025; 86803; 87040; 87086; 87389; 96361; 96374; 96375; 99285; J2270; J2405; J7120; Q9967

== ENCOUNTER 2025-01-02 09:11 | Emergency (ER) | payer OTHER, SELFPAY ==
--- OUTSIDE RECORDS SUMMARY | 2015-10-07 10:10 | XMS_ITS | Encounter Summary ---
Author Organization [place] [address] Care Team Providers Care Entry Level Accountant Name Role Phone Stef Mclean DO, Viral Primary Care Provider [phone] Encounter Details Date Type Department Care Team (Latest Contact Info) Description 10/07/2015 10:10 AM EDT Hospital Encounter [facility] [address] [place] [phone] Left without seen Social History Tobacco Use Types Packs/Day Years Used Date Smoking Tobacco: Never Passive Smoke Exposure: Never Smokeless Tobacco: Never Alcohol Use Standard Drinks/Week Comments Not Currently 0 (1 standard drink = 0.6 oz pur e alcohol) [facility] Utilities Answer Date Recorded In the past 12 months has [employer], gas, oil, or water [employer] threatened to shut off services in your home? No 07/01/2023 Overall Financial Resource Strain (CARDIA) Answe r Date Recorded How hard is it for you to pa y for the very basics like food, housing, medical care, and heating? Not very hard 07/01/2023 PHQ-2 Answer Date Recorded PHQ-2 Total Score 0 09/01/2024 [facility] [place] of Occupat ional Health - Occupational Stress [...] money to get more. Never true 07/01/2023 [facility] IP Transportation Answer D ate Recorded [...] 1:26 PM EDT Nazia Sutton RN * [place] Suicide Severity Rating Scale (Q shift for [...] or making decisions? No 06/19/2024 8:05 AM EST J Carlos Babcock R MA * Because of a physical, mental or emotional condition, does this person have serious difficulty concentrating, remembering or making decisions? Answer Entry Date Author No 10/02/2015 1:08 AM Makayla Jeong RN documented in this encounter Plan of Treatment Upcoming Encounters Date Type Department Care Team (Late st Contact Info) Description 03/09/2025 8:00 AM EST Office Visit [facility] [address] [place] [address] Jessica Leach, PLANT GUIDE [address] [place] [address] documented as of this encounter Goals Goal Patient Goal Type Associated Problems Recent Progress Patient-Stated? Author Blood Pressure < 140/90 Blood Pressure 122/84(2024 11:08 AM EDT) No Gisselle Del Cid CCMA Maintain a healthy diet, exercise regularly and maintain an ideal body weight General No Sol House RMA documented as of this encounter Visit Diagnoses Not on filedocumented in this encounter Additional Health Concerns Infection Onset Date Last Indicated Resolved Time R/O COVID-05/10/2021 05/10/2021 05/10/2021 9:26 PM EST COVID-19 05/10/2021 05/10/2021 06/09/2021 10:1 2 PM EST documented as of this encounter Care Teams Entry Level Accountant Relationship Specialty Start Date End Date Bharathi Finch DO [address] [place] [phone] PCP - General 12/16/10 05/18/16 documented as of this encounter
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
--- OUTSIDE RECORDS SUMMARY | 2024-12-05 07:40 | XMS_ITS | Encounter Summary ---
Author [place] [address] Care Team Providers Care Flight Line Service Attendant Name Role Phone Shameka Reese MD Primary Care Provider Reason for Referral * MRI/CAT Scan (Routine) - PCP Precert Acquired Specialty Diagnoses / Procedures Referred By Contac t Referred To Contact Radiology Diagnoses IIH (idiopathic intracranial hypertension) Procedures MRI VENOGRAM INTRACRANIAL WO CONTRAST Jessica Leach APRN [address] [place] [address] Phone: tel: fax: [facility] MRI [address] [facility] [address] Phone: tel: Referral ID Status Reason Start Date Expiration Date V isits Requested Visits Authorized [id number] PCP Precert Acquired 12/05/2024 12/05/2025 1 1 * Diagnostic X-Ray (Routine) - Pending Review Specialty Diagnoses / Procedures Referred By Contac t Referred To Contact Radiology Diagnoses IIH (idiopathic intracranial hypertension) Procedures FL GUIDED LUMBAR PUNCTURE DIAGNOSTIC Jessica Leach APRN [address] [place] [address] Phone: tel: fax: Referral ID Status Reason Start Date Expiration Date V isits Requested Visits Authorized [id number] Pending Review 12/05/2024 12/05/2025 1 1 * Consultation (Routine) - Authorization Not Needed Specialty Diagnoses / Procedures Referred By Contac t Referred To Contact Ophthalmology Diagnoses IIH (idiopathic intracranial hypertension) Procedures WA OFFICE/OUTPATIENT NEW MODERATE MDM 45 MINUTES Jessica Leach APRN [address] [place] [address] Phone: tel: fax: Referral ID Status Reason Start Date Expiration Date Visits Requested Visits Authorized [id number] Authorization Not Needed Specialty Services Required 12/05/2025 1 1 Question Answer Provider Options First Available Comments IIH Reason for Visit * Consultation (Routine) - Authorization Not Needed Specialty Diagnoses / Procedures Referred By Contac t Referred To Contact Neurology Diagnoses Migraine without aura and without status migrainosus, not intractable Procedures WA OFFICE/OUTPATIENT NEW MODERATE MDM 45 MINUTES Jim Bain APRN [address] [place] [id number] Phone: tel: fax: [facility] [address] [place] [address] Phone: tel: fax: Referral ID Status Reason Start Date Expiration Date Visits Requested Visits Authorized [id number] Authorization Not Needed 11/29/2024 11/29/2025 99 99 Encounter Details Date Type Department Care Team (Late st Contact Info) Description 12/05/2024 7:40 AM EDT Telemedicine [facility] [address] [place] [address] Jessica Leach APRN [address] [place] [address] Intractable migraine without aura and without status migrainosus (Primary Dx); IIH (idiopathic intracranial hypertension) Social History Tobacco Use Types Packs/Day Years Used Date Smoking Tobacco: Never Passive Smoke Exposure: Never Smokeless Tobacco: Never Alcohol Use Standard Drinks/Week Comments Not Currently 0 (1 standard drink = 0.6 oz pur e alcohol) [facility] Utilities Answer Date Recorded In [...] Date Recorded PHQ-2 Total Score 0 09/01/2024 [facility] - [facility] [...] money to get more. Never true 07/01/2023 [facility] IP Transportation Answer D ate Recorded In [...] on file documented as of this encounter Functional Status * Is the [...] Refills Last Filled Start Date End Date ubrogepant (UBRELVY) 100 mg Oral Tablet Take one tablet by mouth at onset of migraine. May repeat dose in 2 hours one time up to a maximum of 200mg per 24 hours. 16 Tablet 11 12/05/2024 atogepant 60 mg Oral Tablet Take 1 Tablet by mouth daily. 30 Tablet 11 12/05/2024 documented in this encounter Progress Notes * Jessica Leach APRN - 12/05/2024 7:40 AM EDT HPI: Marleni Padgett is a right handed female who presents via video in consultation forheadaches per self. Nicolette has a history of headache and migraine most of her adult life. They became stronger in the last year, and daily in the last 6 months. She has 30 headache days per month. Duration varies depending on abortive medication. Pain is located in the bifrontal region and right parietal region. She describes significant pulsatile tinnitus on a daily basis. She will see white spots in her peripheral vision. Her last exam was reportedly benign approximately 4 months ago. Average headache intensityis 4/10 but a few times a week, intensity increases to 9/10. Associated features include light >sound sensitivity, nausea and vomiting with migraine headaches. No blurry vision, loss of vision, aura, or double vision. She denies focal weakness or numbness. She has occasional feelings of lightheadedness. No autonomic features. Tylenol is effective for lesser intense headaches. She takes it every 6 hours for migraine pain with variable efficacy. An eye massager will help some. She does complain of full body aches, worse in hands, during migraines. Triggers and provoking features include manual pressure. She was currently on a leave of absence from work (works for [employer]) due to the headset causing pain to her head. Her work made accommodations including the different headset and a bluelight screen. Significant history: ASD Kidney stone Depression PCOS PTSD Gastric sleeve- lost 104 pounds Current headache therapies: Nurtec QOD-variable efficacy Tried headache therapies: Fioricet prn Imitrex 100 mg prn-not helpful Prior Workup: MRI brain w and w/o (09/2024): normal. Images independently reviewed. CTH w/o (11/2022): partially empty sella. Images independently reviewed. CTH w/o (09/2021): no acute abnormality BMP, TSH, and CBC: Normal Allergies Allergen Reactions Suprax [Cefixime] Hives Brethine [Terbutaline] Palpitations It made me out of it Nsaids (Non-Steroidal Anti-Inflammatory Drug) Other (See Comments) HX GASTRIC SLEEVE! Past Medical History: Diagnosis Date ASD (atrial [...] AT 1542; Surgeon: Lisa Hannon MD; Location: [facility]; Service: Gynecology SECTION N/A 10/05/2021 REPEAT SECTION. skin incision at 1037, uterine at 1040, delivered at 1041, placenta [id number].; Surgeon: Marline Byrnes MD; Location: [facility]; Service: Obstetrics CYSTOSCOPY Right 11/19/2017 CYSTOSCOPY RIGHT STENT INSERTION; Surgeon: Sam Daily MD; Location: [facility]; Service: Urology CYSTOSCOPY Right 12/25/2021 cystoscopy right stent removal ; Surgeon: Juan Mackenzie MD; Location: [facility]; Service:Urology GASTRECTOMY N/A 06/30/2023 Robotic sleeve gastrectomy; Surgeon: Lula Ruvalcaba MD; Location: [facility] MAIN OR; Service: General TONSILLECTOMY 2000 TONSILLECTOMY 2003 VAGINA SURGERY 11/06/2015 repair of third degree obstetrical laceration Social History Socioeconomic History Marital status: Tobacco Use Smoking status: Never Passive exposure: [...] true Transportation Needs: No Transportation Needs (07/01/2023) [facility] IP Transportation In the past 12 months, has lack of reliable transportation kept you from medical appointments, meetings, work or from getting things needed for daily living?: No Physical Activity: Inactive (07/01/2023) Exercise Vital Sign Days of Exercise per Week: 0 days Minutes of Exercise per Session: 0 min Stress: No Stress Concern Present (07/01/2023) [employer] [facility] - Occupational Stress Questionnaire Feeling of Stress : Not at all Received from [facility] Intimate Partner Violence Family History Problem Relation Age of Onset Eclampsia Mother Spont Abortions Mother Stroke Mother Diabetes Father Hypertension Father Mult Sclerosis Maternal Grandfather Depression Paternal Grandmother brain ca Cancer Paternal Grandmother Diabetes Paternal Grandfather Heart Disease Paternal Grandfather Anesth Problems Neg Hx Current Outpatient Medications Medication Sig Dispense Refill albuterol (PROVENTIL HFA;VENTOLIN HFA) 90 mcg/actuation Inhl HFA Aerosol Inhaler Inhale 2 Puffs into the lungs every 4 hours as needed for Wheezing. 1 Each 2 busPIRone (BUSPAR) 10 mg Oral Tablet Take 1 Tablet by mouth 2 times daily. For anxiety 60 Tablet 5 desvenlafaxine succinate (PRISTIQ) 50 mg Oral Tablet Sustained Release 24 hr Take 1 Tablet by mouthdaily. 90 Tablet 3 ergocalciferol (VITAMIN D) 1,250 mcg (50,000 unit) Oral Capsule Take 1 Capsule by mouth once a week. 12 Capsule 3 MULTIVITAMIN ORAL Take by mouth. ondansetron (ZOFRAN) 4 mg Oral Tablet Take 1 Tablet by mouth every 4 hours as needed for Nausea. 60Tablet 5 pantoprazole (PROTONIX) 40 mg Oral Tablet, Delayed Release (E.C.) Take 1 Tablet by mouth 2 times daily. 180 Tablet 2 rimegepant (NURTEC ODT) 75 mg Oral Tablet, Rapid Dissolve Dissolve 1 Tablet by mouth every 48 hours. 18 Tablet 5 tirzepatide, weight loss, 7.5 mg/0.5 mL SubQ Solution Inject 7.5 mg under the skin once a week. 3 mL 1 ZEPBOUND 5 mg/0.5 mL SubQ Pen Injector Inject 5 mg under the skin once a week. No current facility-administered medications for this visit. Review of Systems Constitutional No recent illness Neurological Symptoms as above Cardiovascular Denies any symptoms PULM: Denies any symptoms Psychiatric Denies any symptoms Musculoskeletal Denies any symptoms Eyes Symptoms as above Denies any symptoms Ears/Nose/Mouth/Throat Denies any symptoms Gastrointestinal Denies any symptoms Physical Exam There were no vitals filed for this visit. Mental Status: Alert, oriented to person, place, and date. Attention and concentration normal. Fundof knowledge appropriate for age. Recent and remote memory intact. Is well appearing. Language: Speech fluent. Able to name and repeat without difficulty. Follows commands without difficulty. Cranial Nerves: II: HERSON due to nature of visit III, IV, : EOMI. Able to move orbits vertically and horizontally V: Facial sensation HERSON due to nature of visit VII: Facial movements symmetric. Able to smile VIII: Hearing intact IX, X: Palate raises midline, XI: Shoulder shrug symmetric XII: Tongue protrudes midline Motor: Unable to assess strength, is able to move all 4 extremities equally and symmetrically Sensation: Unable to assess sensation due to nature of visit Reflexes: Unable to assess reflexes Coordination: Ivoqee-nr-axlj and rapid alternating movements intact. No dysmetria or dysdiadochokinesia seen on video today Station and Gait: not assessed due to nature of visit Assessment and Plan: Ms. Padgett is a pleasant 29-year-old female seen in consultation for headaches. Her symptoms are multifactorial. She has 30 headache days per month. She has a history of migraine without aura, and chronic daily headache. She has symptoms consistent with IIH with pulsatile tinnitus. Optic nerves and visual field test not assessed due to nature of visit. She reportedly had a benign eye exam 4 monthsago. Will obtain MR venogram and lumbar puncture with opening and closing pressure. Patient does have history of kidney stones with surgery, so would advise against Diamox. Referral placed to ophthalmology. Discussed treatment options including lifestyle changes, preventative, and abortive treatments. Dietary trigger list provided. For migraine headaches, stop Nurtec every other day. Try Qulipta 60 mg daily and Ubrelvy 100 mg as needed. Patient is agreeable to plan. Follow-up in clinic in 3 months VIDEO VISIT DISCLAIMER: Patient presented today for routine care follow-up through a video visit. Patient has reviewed the terms and conditions of this service as part of the registration for today's visit. Patient is awarethat a video visit does not replace a [id number] exam and further service may be necessary. I advised the patient that we are conducting his/her video visit through the office in a private space onour secure network and this video visit is being conducted in accordance with [facility] telehealth/video visit regulations. Patient had no questions prior to initiation of this visit. documented in this encounter Miscellaneous Notes * Patient Instructions - Jessica Leach APRN - 12/05/2024 7:40 AM EDT QULIPTA: Qulipta is a daily medication used for prevention of migraine. Common side effects include: nausea, constipation, fatigue, loss of appetite TAKE 1/2 TAB NIGHTLY FOR 2 WEEKS PRIOR TO INCREASING TO WHOLE TAB. UBRELVY Ubrelvy is a rescue medication taken for migraines. Take 1 tab at onset and may repeat again in 2 hours. Max dose is 200 mg/24 hours. Some have reported nausea as a side effect. MIGRAINE HEADACHE INFORMATION Dietary Headache Triggers: Caffeine- limit use Monosodium Glutamate (MSG)- consider clean eating Gluten or soy allergy- consider allergy testing/diet changes Alcohol, especially red wine or beer Aged cheeses Chocolate Milk products - sour cream, yogurt, cheesecake, buttermilk foods and foods prepared with soy sauce or Smoked, processed or cured meats (such as hot dogs, huitron, sausage, bologna, salami, ham) Pickled foods (such as pickles, sauerkraut, hope, olives) Nuts and peanut butter Other Factors Associated with Headaches: Uncontrolled stress and mood Environmental allergies- consider undergoing allergy testing Smoking- nicotine use- try smoking cessation Dehydration- increase water intake to at least 64oz or more of water daily Barometric pressure changes TMJ- jaw cracking upon opening and closing jaw and teeth grinding Skipping meals causing low blood sugar Taking over the counter pain medications more than 3-4 times weekly can worsen headaches and contribute to Medication Overuse Headaches (AKA: rebound headaches) Relief Factors: Try a migraine relief cold pack to wear on your head- can get from [employer] Migraine ear plugs if traveling by plane HEADACHE VITAMINS TO CONSIDER: Riboflavin (Vitamin B2) 400 mg per day (may cause urine to turn orange). [facility] may be the best place to get the 400 mg tab. Magnesium Oxide 400 mg DAILY (may cause stomach upset). CoQ10 150 MG DAILY melatonin 5-10 mg nightly to help headaches and improve sleep. NON-PHARMACOLOGICAL DEVICES TO CONSIDER: NERIVIO FOR MIGRAINE USE: (www.nerivio.Smart Cube) Indicated for age 12 and up and FDA cleared and requires a prescription Uses Remote Electrical Neuromodulation to prevent and treat migraine headaches Discreet and wears on your arm and controlled with an Francesco Intensity can be adjusted. For Acute indication: use as often as needed for 45 minutes For Preventative indication, use every other day for 45 minutes There is no limit to the number of treatments per day you can perform Contraindication include uncontrolled epilepsy and no implantable medical devices, such as pacemaker, or hearing aide implant 2. GAMMACORE for migraine and cluster headache treatment (www.Criteocore.Smart Cube) Drug free solution for migraine and cluster headache Indicated for acute and prevention use for age 12 and up Is FDA cleared- by prescription only Can be used multiple times a day Works as a non invasive vagus nerve stimulator by activating the vagus nerve with gentle electricalstimulation through the skin to prevent and relieve headache pain For migraine indication: aids in prevention and of pain in as little as 30 minutes. Almosthalf of patients had little to no migraine pain within 2 hours after first use, and has provided relief form more than 50% of attacks for many migraine patients according to their data Majority of patients who were pain free at 2 hours, remained pain free for 48 hours Common side effects include redness at application site and dizziness, tingling. No major discomfort, and no major sides. For Cluster headache indication: aids in prevention and acute treatment. Many patients feel pain relief in as little as 15 minutes. For prevention- 2 minute stimulations inthe AM and PM. For acute attacks, use for 2 min at start of attack Side effects may include: dizziness, redness at application area, headache, tingling or pricking sensation Contraindications include: implanted medical advisor; not been studied in women 3. CEFALY FOR MIGRAINE HEADACHES (www.cefaly.Smart Cube) Targets the primary pathway for migraine pain- Trigeminal nerve stimulator (eTNS) FDA cleared, for over the counter use- doesn't need a prescription Adults age 18-65 years of age Delivers a precise electrical impulse to stimulate and densensitize the trigeminal nerve over time Indicated for acute and preventative migraine treatment In a 24 hour time frame, you can use up to 2 abortive treatments and 1 preventative treatment Cefaly transmits a mild electric current to the Trigeminal Nerve through an adhesive electrode wornon the forehead Can use an francesco to sync to your device and use in real time Acute treatment takes 60 minutes, and daily preventative treatment takes 20 minutes. The preventative indication will take a few months to become effective Contraindications for Cefaly include: metallic or electronic implanted devices in head, have a cardiac pacemaker or wearable defibrillator; not tested in women Common side effects include: sleepiness after cefaly treatments- DO NOT USE WHEN DRIVING, headache after a session- more common after preventative treatment, forehead skin redness, nausea Consider keeping a migraine/headache journal- Migraine Slava francesco Consider speaking with your provider before self- discontinuing a prescription daily med as there can be side effects that could occur if doing so; unless having severe side effects. documented in this encounter Plan of Treatment Upcoming Encounters Date Type Department Care Team (Late st Contact Info) Description 03/09/2025 8:00 AM EST Office Visit [facility] [address] [facility] [address] [place] [address] Jessica Leach APRN [address] [place] [address] Scheduled Referrals Name Type Priority Associated Diagnoses Orde r Schedule AMB REFERRAL TO OPHTHALMOLOGY Outpatient Referral Routine IIH (idiopathic intracranial hypertension) Ordered: 12/05/2024 documented as of this encounter Goals Goal Patient Goal Type Associated Problems Recent Progress Patient-Stated? Author Blood Pressure < 140/90 Blood Pressure 122/84(2024 11:08 AM EDT) No Gisselle Del Cid CCMA Maintain a healthy diet, exercise regularly and maintain an ideal body weight General No Sol House RMA documented as of this encounter Results * MRI VENOGRAM INTRACRANIAL WO CONTRAST (12/29/2024 3:20 PM EDT) Anatomical Region Laterality Modality Magnetic Resonan ce 12/29/2024 3:20 PM EDT Impressions 12/29/2024 4:08 PM EDT 1. 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 This could be related to occlusion, compression or poor flow. 2. Chronic partially empty sella. No change in position of cerebellar tonsils. - - Note: Radiology results need to be interpreted within a comprehensive clinical context. If you have questions about the radiology report, please contact the office of the ordering clinician. Narrative 12/29/2024 4:08 PM EDT MRI VENOGRAM INTRACRANIAL WO CONTRAST: 12/29/2024 3:20 PM CLINICAL HISTORY: 29 years-old with G93.2-Benign intracranial [id number] COMPARISON: MRI brain with without contrast 09/29/2024. Head CT 11/17/2022. PROCEDURE COMMENTS: 2D time of flight axial and coronal acquired source images with MIP reconstructions obtained without contrast on 1.5 Merly magnet. Additional diffusion, axial T2 and sagittal T1 sequences also obtained. FINDINGS: Left transverse sinus, sigmoid sinus and jugular bulb are nondominant and small in caliber. Majority of mid to posterior left transverse sinus is minimally or non-visualized. On prior exam, this segment showed patent but very small caliber enhancement. All other dural venous sinuses are patent. Bilateral internal cerebral veins are patent. Extra-axial CSF spaces are not prominent. There is chronic partially empty sella. Craniocervical junction is normal. No low-lying cerebellar tonsils. No restricted diffusion, mass effect or abnormal T2 brain parenchyma signal. Posterior left maxillary sinus has minimal inflammatory tissue or potential tiny mucous retention cyst. Other sinuses are clear. Procedure Note Mery Gonzales MD - 12/29/2024 MRI VENOGRAM INTRACRANIAL WO CONTRAST: 12/29/2024 3:20 PM CLINICAL HISTORY: 29 years-old with G93.2-Benign intracranial bxootabclars-[id number]-CM COMPARISON: MRI brain with without contrast 09/29/2024. Head CT11/17/2022. PROCEDURE COMMENTS: 2D time of flight axial and coronal acquired sourceimages with MIP reconstructions obtained without contrast on 1.5 Merly magnet. Additional diffusion, axial T2 and sagittal T1 sequences also obtained. FINDINGS: Left transverse sinus, sigmoid sinus and jugular bulb are nondominant andsmall in caliber. Majority of mid to posterior left transverse sinus isminimally or non-visualized. On prior exam, this segment showed patent but very smallcaliber enhancement. All other dural venous sinuses are patent. Bilateralinternal cerebral veins are patent. Extra-axial CSF spaces are not prominent. There is chronic partiallyempty sella. Craniocervical junction is normal. No low-lying cerebellar tonsils.No restricted diffusion, mass effect or abnormal T2 brain parenchymasignal. Posterior left maxillary sinus has minimal inflammatory tissue orpotential tiny mucous retention cyst. Other sinuses are clear. IMPRESSION: 1. 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 This could be related to occlusion, compression orpoor flow. 2. Chronic partially empty sella. No change in position of cerebellartonsils. - - Note: Radiology results need to be interpreted within a comprehensiveclinical context. If you have questions about the radiology report, please contactthe office of the ordering clinician. Jessica Leach AUTO BODY DETAILER IMG MRI ORDERABLES Final Re sult * FL GUIDED LUMBAR PUNCTURE DIAGNOSTIC (12/27/2024 9:08 AM EDT) Anatomical Region Laterality Modality Radio Fluoroscop y 12/27/2024 9:08 AM EDT Impressions 12/27/2024 12:19 PM EDT Impression: Fluoroscopic-guided lumbar puncture without immediate complications. Fluoroscopy time: 0.3 minutes Number of images: 3 Chaz Bailey PA-C/ Francisco Guidry M.D. Narrative 12/27/2024 12:19 PM EDT Lumbar puncture with fluoroscopy DATE: 12/27/2024 9:08 AM Clinical indications: G93.2-Benign intracranial [id number]-CM PROCEDURE: 1. Procedure performed by Chaz Bailey PA-C, supervised by Francisco Guidry M.D. 2. Informed written consent was obtained from the patient. 3. Patient was placed prone on the x-ray table with a pillow underneath the abdomen for support. The L3-L4 interspace was localized with fluoroscopy and a skin yesenia was made with a permanent marker. Lumbar region was prepped and draped in usual sterile fashion using all elements of maximal sterile barrier technique. A left paramedian approach was taken. Local anesthesia was achieved with 1% plain lidocaine. A 22 gauge 5 inch spinal needle was advanced under fluoroscopy until CSF was noted in the hub of the needle. Stylet was removed and a pressure measurement was performed in the prone position with quiet breathing. Opening pressures were 20.2 cm H2O. 8 milliliters of Clear CSF was collected and sent to the laboratory for evaluation. Closing pressures were then measured in the prone position with quiet breathing. Closing pressure was measured at 17.8 cm H2O. A fluoroscopic image was obtained for our records. Stylet was replaced and needle was removed. A sterile bandage was applied. Patient tolerated the procedure well without immediate complications. 4. Post procedure instructions were reviewed with the patient and family. The patient is to force fluids and caffeine today and is to remain supine for the next 24 hours except for the bathroom privileges. Procedure Note Francisco Guidry MD - 12/27/2024 Lumbar puncture with fluoroscopy DATE: 12/27/2024 9:08 AM Clinical indications: G93.2-Benign intracranial otynjgswmlki-MGB-11-CM PROCEDURE: 1. Procedure performed by Chaz Bailey PA-C, supervised by Aisha Preston 2. Informed written consent was obtained from the patient. 3. Patient was placed prone on the x-ray table with a pillow underneaththe abdomen for support. The L3-L4 interspace was localized with fluoroscopyand a skin yesenia was made with a permanent marker. Lumbar region was prepped anddraped in usual sterile fashion using all elements of maximal sterile barrier technique. A left paramedian approach was taken. Local anesthesia wasachieved with 1% plain lidocaine. A 22 gauge 5 inch spinal needle was advancedunder fluoroscopy until CSF was noted in the hub of the needle. Stylet wasremoved and a pressure measurement was performed in the prone position with quietbreathing. Opening pressures were 20.2 cm H2O. 8 milliliters of Clear CSF wascollected and sent to the laboratory for evaluation. Closing pressures were thenmeasured in the prone position with quiet breathing. Closing pressure was measuredat 17.8 cm H2O. A fluoroscopic image was obtained for our records. Styletwas replaced and needle was removed. A sterile bandage was applied. Patient tolerated the procedure well without immediate complications. 4. Post procedure instructions were reviewed with the patient and family.The patient is to force fluids and caffeine today and is to remain supine forthe next 24 hours except for the bathroom privileges. IMPRESSION: Impression: Fluoroscopic-guided lumbar puncture without immediatecomplications. Fluoroscopy time: 0.3 minutes Number of images: 3 Chaz Bailey PA-C/ Francisco Guidry M.D. Jessica Leach AUTO BODY DETAILER IMG FLUOROSCOPY ORDERABLES Final Result * MENINGITIS/ENCEPH PANEL (12/27/2024 9:03 AM EDT) E. coli K1 Not Detected Not Detected 12/27/2024 11:18 AM EDT [facility] Haemophilus influenzae Not Detected Not Detected 12/27/2024 11:18 AM EDT [facility] Listeria monocytogenes Not Detected Not Detected 12/27/2024 11:18 AM EDT [facility] Neisseria meningitidis Not Detected Not Detected 12/27/2024 11:18 AM EDT [facility] Streptococcus agalactiae Not Detected Not Detected 12/27/2024 11:18 AM EDT [facility] Streptococcus pneumoniae Not Detected Not Detected 12/27/2024 11:18 AM EDT [facility] (CMV) Cytomegalovirus Not Detected Not Detected 12/27/2024 11:18 AM EDT [facility] Comment:The Film Array ME pa sumeet does not distinguish between latent and active CMV infection. Detection of this virus may indicate primary infection, secondary reactivation, or the presence of latent virus. Results should always be interpreted in conjunction with other clinical, laboratory and epidemiological information. (EV) Enterovirus Not Detected Not Detected 12/27/2024 11:18 AM EDT [facility] (HSV-1) Herpes simplex virus 1 Not Detected Not Detected 12/27/2024 11:18 AM EDT [facility] (HSV-2) Herpes simplex virus 2 Not Detected Not Detected 12/27/2024 11:18 AM EDT [facility] (HHV-6) Human herpesvirus 6 Not Detected Not Detected 12/27/2024 11:18 AM EDT [facility] Comment:The Film Array ME pa sumeet does not distinguish between latent and active HHV-6 infection. Detection of this virus may indicate primary infection, secondary reactivation, or the presence of latent virus. Results should always be interpreted in conjunction with other clinical, laboratory and epidemiological information. (HPeV) Human parechovirus Not Detected Not Detected 12/27/2024 11:18 AM EDT [facility] (VZV) Varicella zoster virus Not Detected Not Detected 12/27/2024 11:18 AM EDT [facility] Cryptococcus neoformans/man Not Detected Not Detected 12/27/2024 11:18 AM EDT [facility] Cerebrospinal Fluid LUMBAR PUNCTURE / Unknown 12/27/2024 9:03 AM EDT 12/27/2024 9:14 AM EDT Jessica Leach APRN BODY FLUIDS AND STOOLS ORDSveta HADDAD Final Result Performing Organization Address [facility]/ZIP Co de Phone Number [facility] [address] , [place] [address] * CEREBROSPINAL FLUID CULTURE (STAIN INCLUDED) (12/27/2024 9:03 AM EDT) Culture No Growth at 5 days. 01/01/2025 7:18 AM EDT [facility] Stain No WBCs 01/01/2025 7:18 AM EDT [facility] Stain No organisms seen 01/01/2025 7:18 AM EDT [facility] Cerebrospinal Fluid LUMBAR PUNCTURE / Unknown 12/27/2024 9:03 AM EDT 12/27/2024 9:14 AM EDT Jessica Leach APRN MICROBIOLOGY - GENERAL REBECCA HADDAD Final Result Performing Organization Address [facility] de Phone Number [facility] [address] , [place] [address] documented in this encounter Visit Diagnoses Diagnosis Intractable migraine without aura and without status migrainosus- Primary Migraine without aura, with intractable migraine, so stated, without mention of status migrainosus IIH (idiopathic intracranial hypertension) Benign intracranial hypertension IIH (idiopathic intracranial hypertension) Benign intracranial hypertension IIH (idiopathic intracranial hypertension) Benign intracranial hypertension documented in this encounter Discontinued Medications Medication Sig Discontinue Reason Start Date End Da te rimegepant (NURTEC ODT) 75 mg Oral Tablet, Rapid DissolveIndications:Mi graine without aura and without status migrainosus, not intractable Dissolve 1 Tablet by mouth every 48 hours. DELETE-Therapy completed 11/29/2024 12/05/2024 documented as of this encounter Orders Nursing Count Last Ordered Date First Orde red Date OBTAIN OPENING PRESSURE 1 12/05/2024 documented in this encounter Care Teams Flight Line Service Attendant Relationship Specialty Start Date End Date Shameka Reese MD [address] [place] [address] PCP - General Family Medicine 05/19/16 documented as of this encounter
--- OUTSIDE RECORDS SUMMARY | 2024-12-17 13:26 | XMS_ITS | Encounter Summary ---
Author Organization [place] [address] Care Team Providers Care Sample Body Builder Name Role Phone Shameka Reese MD Primary Care Provider [phone] Reason for Visit * Reason Comments Flank Pain Right started yester day and has h/o renal stones/ no dysuria/ tried Tylenol three hours VACUUM DRIER TENDER Encounter Details Date Type Department Care Team (Late st Contact Info) Description 12/17/2024 1:26 PM EDT - 12/17/2024 2:58 PM EDT [facility] [address] [place] [address] Nina Amaral MD [address] [place] [address] Pyelonephritis (Primary Dx) Discharge Disposition: Home or Self Care Social History Tobacco Use Types Packs/Day Years Used Date Smoking Tobacco: Never Passive Smoke Exposure: Never Smokeless Tobacco: Never Alcohol Use Standard Drinks/Week Comments Not Currently 0 (1 standard drink = 0.6 oz pur e alcohol) [facility] Utilities Answer Date Recorded In the past 12 months has [employer] electric, gas, oil, or water company threatened to shut off services in your home? No 07/01/2023 Overall Financial Resource Strain (CARDIA) Answe r Date Recorded How hard is it for you to pa y for the very basics like food, housing, medical care, and heating? Not very hard 07/01/2023 PHQ-2 Answer Date Recorded PHQ-2 Total Score 0 09/01/2024 [facility] - [...] money to get more. Never true 07/01/2023 [facility] IP Transportation Answer D ate Recorded In [...] Sign Reading Time Taken Comments Blood Pressure 100/60 12/17/2024 2:54 PM EDT Pulse 79 12/17/2024 2:54 PM EDT Temperature 36.8 C (98.3 F) 12/17/2024 1:29 PM EDT Respiratory Rate 18 12/17/2024 2:54 PM EDT Oxygen Saturation 99% 12/17/2024 2:54 PM EDT Inhaled Oxygen Concentration - - Weight 98 kg (216 lb) 12/17/2024 1:24 PM EDT Height 149.9 cm (4' 11 ) 12/17/2024 1:24 PM EDT Body Mass Index 43.63 12/17/2024 1:24 PM EDT documented in this encounter Functional Status [...] 8:05 AM J Carlos Mendez RMA * Suicide Severity Rating Answer Date of Assessment Author No Risk 12/17/2024 1:26 PM EDT Nazia Sutton RN * [place] Suicide Severity Rating Scale (Q shift for [...] to question 6) 0 12/17/2024 1:26 PM EDT Nazia Sutton RN 6. Have you ever [...] Carlos Mendez RMA documented in this encounter Discharge Instructions * Discharge Instructions* Nasir Lacy APRN - 12/17/2024 2:41 PM EDT Push fluids. Medication as directed Follow-up family doctor for recheck Return here for worsening of symptoms. documented in this encounter Medications at Time of Discharge albuterol (PROVENTIL HFA;VENTOLIN HFA) 90 mcg/actuation Inhl HFA Aerosol InhalerIndication s:Acute bronchitis, unspecified organism Inhale 2 Puffs into the lungs every 4 hours as needed for Wheezing. 1 Each 2 02/17/2023 atogepant 60 mg Oral Tablet Take 1 Tablet by mouth daily. 30 Tablet 11 12/08/2024 busPIRone (BUSPAR) 10 mg Oral TabletIndications :PTSD (post-traumatic stress disorder),Nightma res,Adjustment disorder with mixed anxiety and depressed mood Take 1 Tablet by mouth 2 times daily. For anxiety 60 Tablet 5 11/29/2024 desvenlafaxine succinate (PRISTIQ) 50 mg Oral Tablet Sustained Release 24 hrIndications:PTS D (post-traumatic stress disorder),Nightma res,Adjustment disorder with mixed anxiety and depressed mood Take 1 Tablet by mouth daily. 90 Tablet 3 11/29/2024 ergocalciferol (VITAMIN D) 1,250 mcg (50,000 unit) Oral Capsule Take 1 Capsule by mouth once a week. 12 Capsule 3 10/05/2024 MULTIVITAMIN ORAL Take by mouth. ondansetron (ZOFRAN) 4 mg Oral TabletIndications :Nausea Take 1 Tablet by mouth every 4 hours as needed for Nausea. 60 Tablet 5 11/29/2024 pantoprazole (PROTONIX) 40 mg Oral Tablet, Delayed Release (E.C.)Indications :Gastroesophageal reflux disease with esophagitis, unspecified whether hemorrhage Take 1 Tablet by mouth 2 times daily. 180 Tablet 2 08/24/2024 tirzepatide, weight loss, 7.5 mg/0.5 mL SubQ SolutionIndicatio ns:Obesity, Class III, BMI 40-49.9 (morbid obesity) Inject 7.5 mg under the skin once a week. 3 mL 1 12/12/2024 ubrogepant (UBRELVY) 100 mg Oral Tablet Take one tablet by mouth at onset of migraine. May repeat dose in 2 hours one time up to a maximum of 200mg per 24 hours. 16 Tablet 11 12/05/2024 ZEPBOUND 5 mg/0.5 mL SubQ Pen Injector Inject 5 mg under the skin once a week. 11/01/2024 ciprofloxacin HCl (CIPRO) 500 mg Oral Tablet Take 1 Tablet by mouth 2 times daily for 10 days. 20 Tablet 12/17/2024 12/27/2024 oxyCODONE-acetami nophen (PERCOCET) 5-325 mg Oral Tablet Take 1 Tablet by mouth every 6 hours as needed for Acute Pain (R52) for up to 3 days. 12 Tablet 12/17/2024 12/20/2024 documented as of this encounter Ordered Prescriptions Prescription Sig Dispense Quantity Refills Last Filled Start Date End Date ciprofloxacin HCl (CIPRO) 500 mg Oral Tablet Take 1 Tablet by mouth 2 times daily for 10 days. 20 Tablet 12/17/2024 12/27/2024 oxyCODONE-acetamin ophen (PERCOCET) 5-325 mg Oral Tablet Take 1 Tablet by mouth every 6 hours as needed for Acute Pain (R52) for up to 3 days. 12 Tablet 12/17/2024 12/20/2024 documented in this encounter Discharge Disposition Disposition Code Departure Means Destination Comment s Home or Self Detention documented in this encounter ED Notes * Nasir Lacy, CRUSHER SUPERVISOR - 12/17/2024 1:22 PM EDT CHIEF COMPLAINT Chief Complaint Patient presents with Flank Pain Right started yesterday and has h/o renal stones/ no dysuria/ tried Tylenol three hours VACUUM DRIER TENDER HPI Marleni Padgett is a 29 y.o. female with a PMHX of depression, PCOS, UTI, kidney stone presents emergency room with complaints of right flank pain that started yesterday. Denies radiation of pain into her abdomen or vaginal region. Patient states she has felt nauseated, denies vomiting. Denies fever. States she did have some dysuria but she had taken some leftover Pyridium and 1 amoxicillin tablet yesterday. Patient states she just ended her period yesterday. REVIEW OF SYSTEMS See HPI for further details. Review of systems otherwise negative. PAST MEDICAL HISTORY Past Medical History: Diagnosis Date ASD (atrial septal defect) 06/01/2017 resolved Depression GERD (gastroesophageal reflux disease) Other seasonal allergic rhinitis PCOS (polycystic ovarian syndrome) Pneumonia 03/11 Renal calculus, right 11/19/2017 Urinary tract infection history of Vulval or perineal trauma during delivery with problem 05/25/2017 FAMILY HISTORY Family History Problem Relation Age of Onset Migraines Mother Eclampsia Mother Spont Abortions Mother Stroke Mother Diabetes Father Hypertension Father Dementia Maternal Grandmother Mult Sclerosis Maternal Grandfather Depression Paternal Grandmother brain ca Cancer Paternal Grandmother Other (brain aneurysm) Paternal Grandmother Brain Cancer Paternal Grandmother Diabetes Paternal Grandfather Heart Disease Paternal Grandfather Anesth Problems Neg Hx SOCIAL HISTORY Social History Socioeconomic History Marital status: Spouse name: None Number of children: 3 Years of education: None Highest education level: [...] true Transportation Needs: No Transportation Needs (07/01/2023) [facility] IP Transportation In the past 12 months, has lack of reliable transportation kept you from medical appointments, meetings, work or from getting things needed for daily living?: No Physical Activity: Inactive (07/01/2023) Exercise Vital Sign Days of Exercise per Week: 0 days Minutes of Exercise per Session: 0 min Stress: No Stress Concern Present (07/01/2023) [facility] - Occupational Stress Questionnaire Feeling of Stress : Not at all Received from [facility] Intimate Partner Violence SURGICAL HISTORY Past Surgical History: Procedure Laterality Date SECTION N/A 08/12/2017 PRIMARY SECTION VIA LOW TRANSVERSE UTERINE INCISION AT 1542; Surgeon: Lisa Hannon MD; Location: [facility]; Service: Gynecology SECTION N/A 10/05/2021 REPEAT SECTION. skin incision at 1037, uterine at 1040, delivered at 1041, placenta [id number].; Surgeon: Marline Byrnes MD; Location: [facility]; Service: Obstetrics CYSTOSCOPY Right 11/19/2017 CYSTOSCOPY RIGHT STENT INSERTION; Surgeon: Sam Daily MD; Location: [facility]; Service: Urology CYSTOSCOPY Right 12/25/2021 cystoscopy right stent removal ; Surgeon: Juan Mackenzie MD; Location: [facility]; Service:Urology GASTRECTOMY N/A 06/30/2023 Robotic sleeve gastrectomy; Surgeon: Lula Ruvalcaba MD; Location: [facility]; Service: General TONSILLECTOMY 2000 TONSILLECTOMY 2003 VAGINA SURGERY 11/06/2015 repair of third degree obstetrical laceration CURRENT MEDICATIONS Current Facility-Administered Medications: ciprofloxacin HCl (CIPRO) tablet 500 mg, 500 mg, Oral, Once, Nasir Lacy APRN Current Outpatient Medications: albuterol (PROVENTIL HFA;VENTOLIN HFA) 90 mcg/actuation Inhl HFA Aerosol Inhaler, Inhale 2 Puffs into the lungs every 4 hours as needed for Wheezing., Disp: 1 Each, Rfl: 2 atogepant 60 mg Oral Tablet, Take 1 Tablet by mouth daily., Disp: 30 Tablet, Rfl: 11 busPIRone (BUSPAR) 10 mg Oral Tablet, Take 1 Tablet by mouth 2 times daily. For anxiety, Disp: 60 Tablet, Rfl: 5 ciprofloxacin HCl (CIPRO) 500 mg Oral Tablet, Take 1 Tablet by mouth 2 times daily for 10 days., Disp: 20 Tablet, Rfl: 0 desvenlafaxine succinate (PRISTIQ) 50 mg Oral Tablet Sustained Release 24 hr, Take 1 Tablet by mouth daily., Disp: 90 Tablet, Rfl: 3 ergocalciferol (VITAMIN D) 1,250 mcg (50,000 unit) Oral Capsule, Take 1 Capsule by mouth once a week., Disp: 12 Capsule, Rfl: 3 MULTIVITAMIN ORAL, Take by mouth., Disp: , Rfl: ondansetron (ZOFRAN) 4 mg Oral Tablet, Take 1 Tablet by mouth every 4 hours as needed for Nausea., Disp: 60 Tablet, Rfl: 5 oxyCODONE-acetaminophen (PERCOCET) 5-325 mg Oral Tablet, Take 1 Tablet by mouth every 6 hours as needed for Acute Pain (R52) for up to 3 days., Disp: 12 Tablet, Rfl: 0 pantoprazole (PROTONIX) 40 mg Oral Tablet, Delayed Release (E.C.), Take 1 Tablet by mouth 2 times daily., Disp: 180 Tablet, Rfl: 2 tirzepatide, weight loss, 7.5 mg/0.5 mL SubQ Solution, Inject 7.5 mg under the skin once a week., Disp: 3 mL, Rfl: 1 ubrogepant (UBRELVY) 100 mg Oral Tablet, Take one tablet by mouth at onset of migraine. May repeat dose in 2 hours one time up to a maximum of 200mg per 24 hours., Disp: 16 Tablet, Rfl: 11 ZEPBOUND 5 mg/0.5 mL SubQ Pen Injector, Inject 5 mg under the skin once a week., Disp: , Rfl: ALLERGIES Allergies Allergen Reactions Suprax [Cefixime] Hives Brethine [Terbutaline] Palpitations It made me out of it Nsaids (Non-Steroidal Anti-Inflammatory Drug) Other (See Comments) HX GASTRIC SLEEVE! PHYSICAL EXAM VITAL SIGNS: ED Triage Vitals Temp 12/17/24 1329 98.3 ??F (36.8 ??C) Pulse 12/17/24 1324 88 Resp 12/17/24 1324 19 BP 12/17/24 1329 118/78 SpO2 12/17/24 1324 99 % Height 12/17/24 1324 4' 11 (1.499 m) Weight 12/17/24 1324 216 lb (98 kg) Constitutional: Well developed, Well nourished, No acute distress, Non-toxic appearance. HENT: Normocephalic, Atraumatic, Bilateral external ears normal, Oropharynx moist, No oral exudates, Nose normal. Eyes: PERRLA, EOMI, Conjunctiva normal, No discharge. Neck: Normal range of motion, No tenderness, Supple, No stridor. Lymphatic: No lymphadenopathy noted. Cardiovascular: Normal heart rate, Normal rhythm, No murmurs, No rubs, No gallops. Thorax & Lungs: Normal breath sounds, No respiratory distress, No wheezing, No chest tenderness. Abdomen: Obese, soft, positive bowel sounds x 4. Mild tenderness in upper quadrant. No guarding Skin: Warm, Dry, No erythema, No rash. Back: No tenderness, mild right CVA tenderness. Extremities: Intact distal pulses, No edema, No tenderness. Neurologic: Alert & oriented x 3, Normal motor function, Normal sensory function, No focal deficits noted. LABS/RADIOLOGY/PROCEDURES Labs Reviewed URINALYSIS REFLEX - Abnormal Result Value UA Color Dunlow UA Appear Slightly Cloudy (*) UA Glucose Negative UA Ketones Trace (5 mg/dL) (*) UA Blood Large (*) UA pH 6.0 UA Protein >=300 (*) UA Urobilinogen 2.0 (*) UA Bili UA Nitrite Positive (*) UA Leuk Est Small (*) UA Spec Grav >=1.030 UA WBC 30 (*) UA RBC 12 (*) UA Squam Epi 2+ UA Mucus 1+ UA Amorph 1+ UA Bacteria 1+ (*) BASIC METABOLIC PANEL - Normal Sodium 138 Potassium 3.9 Chloride 103 Total CO2 23 Anion Gap 12 Calcium 9.0 Glucose Lvl 96 BUN 10 Creatinine 0.79 eGFR (CKD-EPIcr 2020) 103 HUMAN CHORIONIC GONADOTROPIN QUANTITATIVE - Normal Hcg Quant <1 Narrative: Female (non-): 0-4.9 mIU/mL Female (postmenopausal): 0-8.1 mIU/mL Indeterminate values for (e.g., 5-25 mIU/mL) may be confirmed with a repeat test in 48-72hours. Values in should double every 2-3 days for the first six weeks. Ingestion of abhinav doses of biotin (>5 mg/day) taken within 8 hours of drawing blood sample can interfere with this immunoassay test. URINE CULTURE (NO STAIN) UA W/REFLEX TO CULTURE Narrative: The following orders were created for panel order UA W/REFLEX TO CULTURE. Procedure Abnormality Status --------- ------ URINALYSIS REFLEX[[id number]] Abnormal Final result EXTRA MARIE URINE CX[[id number]] In process Please view results for these tests on the individual orders. No orders to display COURSE & MEDICAL DECISION MAKING Pertinent Labs & Imaging studies reviewed. (See chart for details) Vitals: 12/17/24 1324 12/17/24 1329 12/17/24 1330 BP: 118/78 118/78 Pulse: 88 Resp: 19 Temp: 98.3 ??F (36.8 ??C) TempSrc: Oral SpO2: 99% Weight: 216 lb (98 kg) Height: 4' 11 (1.499 m) Marleni Padgett is a 29 y.o. female with a history and presentation as described above in HPI. Appropriate labs and diagnostic studies were reviewed as they were made available. Pertinent laboratorystudies in medical decision making are listed below. Presents emergency room with complaints of right flank pain associate with nausea. History of stones and UTI. Patient states she has taken Pyridium and a leftover amoxicillin pill yesterday. On exam alert nontoxic. Nontoxic-appearing. Patient does have a mild right CVA tenderness or upper quadrant tenderness. No lower abdominal tenderness on exam. No guarding. hCG negative. BMP unremarkable. Urinalysis reveals positive nitrite. 30 WBCs microscopically. Patient will be treated for pyelonephritis. Cipro and Percocet in the ED. She was written a prescription for this as well. Instructed to push fluids. Medications as directed. Follow up with the family doctor for a recheck. Return precautions given. FINAL IMPRESSION 1. Pyelonephritis Electronically signed by: GUNNER Lacy APRN, 12/17/2024 2:41 PM Nasir Lacy APRN 12/17/24 1443 Cosigned by Nina Amaral MD at 12/17/2024 2:47 PM EDT Associated attestation - Nina Amaral MD - 12/17/2024 2:47 PM EDT Patient was seen independently by the MD THERESA was available at all times for consultation. I have participated in the care of this patient and have reviewed the pertinent clinical information including physical exam findings, labs, and radiographic studies. I have reviewed and/or discussedthe plan of care, of which I personally approve and take responsibility for the patient management. No orders to display Nina Amaral MD This chart was completed using voice recognition technology and may contain unintended errors documented in this encounter Plan of Treatment Upcoming Encounters Date Type Department Care Team (Late st Contact Info) Description 03/09/2025 8:00 AM EST Office Visit [facility] [address] [place] [address] Jessica Leach, CRUSHER SUPERVISOR [address] [place] [address] documented as of this encounter Goals Goal Patient Goal Type Associated Problems Recent Progress Patient-Stated? Author Blood Pressure < 140/90 Blood Pressure 122/84(2024 11:08 AM EDT) No Gisselle Del Cid CCMA Maintain a healthy diet, exercise regularly and maintain an ideal body weight General No Sol House RMA documented as of this encounter Procedures Procedure Name Priority Date/Time Associated Diagnosis Comments HUMAN CHORIONIC GONADOTROPIN QUANTITATIVE STAT 12/17/2024 2:07 PM EDT BASIC METABOLIC PANEL STAT 12/17/2024 2:07 PM EDT URINALYSIS REFLEX STAT 12/17/2024 1:5 6 PM EDT UA W/REFLEX TO CULTURE STAT 12/17/2024 1:56 PM EDT EXTRA MARIE URINE CX STAT 12/17/2024 1 :56 PM EDT URINE CULTURE (NO STAIN) STAT 12/17/2024 1:56 PM EDT documented in this encounter Results * HUMAN CHORIONIC GONADOTROPIN QUANTITATIVE (12/17/2024 2:07 PM EDT) Hcg Quant <1 <5 mIU/mL 12/17/2024 2:28 PM EDT [facility] Blood VENOUS BLOOD / Unknown Venipuncture / Unknown 12/17/2024 2:07 PM EDT 12/17/2024 2:09 PM EDT Narrative [facility] - 12/17/2024 2:28 PM EDT Female (non-): 0-4.9 mIU/mL Female (postmenopausal): 0-8.1 mIU/mL Indeterminate values for (e.g., 5-25 mIU/mL) may be confirmed with a repeat test in 48-72 hours. Values in should double every 2-3 days for the first six weeks. Ingestion of abhinav doses of biotin (>5 mg/day) taken within 8 hours of drawing blood sample can interfere with this immunoassay test. us Nasir Lacy APRN CHEMISTRY ORDERABLES Final R esult [facility] [address] [place] [address] * BASIC METABOLIC PANEL (12/17/2024 2:07 PM EDT) Sodium 138 136 - 145 mmol/L 12/17/2024 2:24 PM EDT [facility] Potassium 3.9 3.5 - 5.0 mmol/L 12/17/2024 2:24 PM EDT [facility] Chloride 103 98 - 107 mmol/L 12/17/2024 2:24 PM EDT [facility] Total CO2 23 22 - 29 mmol/L 12/17/2024 2:24 PM EDT [facility] Anion Gap 12 7 - 16 mmol/L 12/17/2024 2:24 PM T [facility] Calcium 9.0 8.6 - 10.4 mg/dL 12/17/2024 2:24 PM T [facility] Glucose Lvl 96 70 - 99 mg/dL 12/17/2024 2:24 PM EDT [facility] BUN 10 6 - 20 mg/dL 12/17/2024 2:24 PM EDT [facility] Creatinine 0.79 0.51 - 1.30 mg/dL 12/17/2024 2:24 PM EDT [facility] eGFR (CKD-EPIcr 2020) 103 >=60 mL/min/1.7 3 m2 12/17/2024 2:24 PM T [facility] Comment:Estimated GFR was ca lculated using the CKD-EPIcr (2020) equation refit without race. The equation is recommended by the National Kidney Foundation - [place] [employer] of Nephrology Task Force. Blood VENOUS BLOOD / Unknown Venipuncture / Unknown 12/17/2024 2:07 PM EDT 12/17/2024 2:09 PM EDT us Nasir Lacy CRUSHER SUPERVISOR CHEMISTRY ORDERABLES Final R esult [facility] [address] [place] [address] * (ABNORMAL) URINE CULTURE (NO STAIN) (12/17/2024 1:56 PM EDT) Culture Positive Growth(A) 12/19/2024 11:01 AM EDT [facility] [employer] [employer] Culture >100,000 CFU/mL Klebsiella pneumoniae SUSCEPTIBI LITY RESULT 12/19/2024 11:01 AM EDT [facility] [employer] [employer] Urine STRUCTURE OF URINARY TRACT PROPER / Unknown 12/17/2024 1:56 PM EDT 12/17/2024 2:08 PM EDT Narrative Organism Antibiotic Method Susceptibility Klebsiella pneumoniae Amikacin SUSCEPTIBILITY RESULT Klebsiella pneumoniae Amoxicillin/Clavulanat e SUSCEPTIBILITY RESULT <=8/4 ug/mL: Susceptible Klebsiella pneumoniae Ampicillin SUSCEPTIBILITY RESULT Klebsiella pneumoniae Ampicillin/Sulbactam SUSCEPTIBILITY RESULT <=4/2 ug/mL: Susceptible Klebsiella pneumoniae Aztreonam SUSCEPTIBILITY RESULT <=4 ug/mL: Susceptible Klebsiella pneumoniae Cefazolin SUSCEPTIBILITY RESULT <=2 ug/mL: Susceptible Klebsiella pneumoniae Cefepime SUSCEPTIBILITY RESULT Klebsiella pneumoniae Cefotaxime SUSCEPTIBILITY RESULT Klebsiella pneumoniae Cefoxitin SUSCEPTIBILITY RESULT <=8 ug/mL: Susceptible Klebsiella pneumoniae Ceftazidime SUSCEPTIBILITY RESULT Klebsiella pneumoniae Ceftazidime/Avibactam SUSCEPTIBILITY RESULT Klebsiella pneumoniae Ceftolozane/Tazobactam SUSCEPTIBILITY RESULT Klebsiella pneumoniae Ceftriaxone SUSCEPTIBILITY RESULT Klebsiella pneumoniae Cefuroxime SUSCEPTIBILITY RESULT Klebsiella pneumoniae Ciprofloxacin SUSCEPTIBILITY RESULT <=0.25 ug/mL: Susceptible Klebsiella pneumoniae Ertapenem SUSCEPTIBILITY RESULT <=0.5 ug/mL: Susceptible Klebsiella pneumoniae Gentamicin SUSCEPTIBILITY RESULT <=2 ug/mL: Susceptible Klebsiella pneumoniae Imipenem SUSCEPTIBILITY RESULT <=1 ug/mL: Susceptible Klebsiella pneumoniae Levofloxacin SUSCEPTIBILITY RESULT <=0.5 ug/mL: Susceptible Klebsiella pneumoniae Meropenem SUSCEPTIBILITY RESULT <=1 ug/mL: Susceptible Klebsiella pneumoniae Meropenem/Vaborbactam SUSCEPTIBILITY RESULT Klebsiella pneumoniae Minocycline SUSCEPTIBILITY RESULT Klebsiella pneumoniae Moxifloxacin SUSCEPTIBILITY RESULT Klebsiella pneumoniae Nitrofurantoin SUSCEPTIBILITY RESULT 64 ug/mL: Intermediate Klebsiella pneumoniae Piperacillin/Tazobacta m SUSCEPTIBILITY RESULT <=8 ug/mL: Susceptible Klebsiella pneumoniae Tetracycline SUSCEPTIBILITY RESULT <=4 ug/mL: Susceptible Klebsiella pneumoniae Tigecycline SUSCEPTIBILITY RESULT Klebsiella pneumoniae Tobramycin SUSCEPTIBILITY RESULT <=2 ug/mL: Susceptible Klebsiella pneumoniae Trimethoprim/Sulfameth oxazole SUSCEPTIBILITY RESULT <=0.5/9.5 ug/mL: Susceptible Nasir Lacy CRUSHER SUPERVISOR MICROBIOLOGY - GENERAL ORDER KIANA Final Result [facility] [employer], [facility] [address] [facility] , [place] [id number] * EXTRA MARIE URINE CX (12/17/2024 1:56 PM EDT) Urine STRUCTURE OF URINARY TRACT PROPER / Unknown 12/17/2024 1:56 PM EDT 12/17/2024 1:58 PM EDT Nasir Lacy APRN MICROBIOLOGY - GENERAL ORDER KIANA Final Result Performing Organization Address City/[facility] Co de Phone Number [facility] [address] [place] [address] * (ABNORMAL) URINALYSIS REFLEX (12/17/2024 1:56 PM EDT) UA Color Dunlow 12/17/2024 2:08 PM EDT [facility] UA Appear Slightly Cloudy(A) Clear 12/17/2024 2:08 PM EDT [facility] UA Glucose Negative Negative mg/dL 12/17/2024 2:08 PM EDT [facility] UA Ketones Trace (5 mg/dL)(A) Negative mg/dL 12/17/2024 2:08 PM EDT [facility] UA Blood Large(A) Negative 12/17/2024 2:08 PM EDT [facility] UA pH 6.0 5.0 - 8.0 pH 12/17/2024 2:08 PM EDT [facility] UA Protein >=300(A) Negative mg/dL 12/17/2024 2:08 PM EDT [facility] UA Urobilinogen 2.0(A) <=1 mg/dL 2:08 PM EDT [facility] UA Bili 12/17/2024 2:08 PM EDT [facility] Comment:Unable to report. Ca nnot rule out interfering substances that may yield false positive results. Consider correlation with serum bilirubin result. UA Nitrite Positive(A) Negative 12/17/2024 2:08 PM EDT [facility] UA Leuk Est Small(A) Negative 12/17/2024 2:08 PM EDT [facility] UA Spec Grav >=1.030 1.001 - 1.035 no units 12/17/2024 2:08 PM EDT [facility] Comment:Reference range tobias d for random specimens only. UA WBC 30(H) 0 - 4 /HPF 12/17/2024 2:08 PM EDT [facility] UA RBC 12(H) 0 - 3 /HPF 12/17/2024 2:08 PM EDT [facility] UA Squam Epi 2+ /LPF 12/17/2024 2:08 PM EDT [facility] UA Mucus 1+ /LPF 12/17/2024 2:08 PM EDT [facility] UA Amorph 1+ /HPF 12/17/2024 2:08 PM EDT [facility] UA Bacteria 1+(A) Negative /HPF 12/17/2024 2:08 PM EDT [facility] Urine STRUCTURE OF URINARY TRACT PROPER / Unknown 12/17/2024 1:56 PM EDT 12/17/2024 1:58 PM EDT us Nasir Lacy CRUSHER SUPERVISOR URINE ORDERABLES Final Resul t [facility] [address] [place] [address] documented in this encounter Visit Diagnoses Diagnosis Pyelonephritis- Primary Pyelonephritis, unspecified documented in this encounter Administered Medications Inactive Administered Medications - up to 1 most recent administrations Medication Order MAR Action Action Date Dose Rate Site ciprofloxacin HCl (CIPRO) tablet 500 mg 500 mg, Oral, ONCE, 1 dose, On 12/17/24 at 1445, Hold tube feeding 1 hour before/after administration. Do not take with milk, yogurt, or other dairy products. Take 2 hours before or 6 hours after antacids., Reason for Therapy: Medical Prophylaxis Given 12/17/2024 2:53 PM EDT 500 mg oxyCODONE-acetaminophen (PERCOCET) 5-325 mg per tablet 1 Tablet 1 Tablet, Oral, ONCE, 1 dose, On 12/17/24 at 1415, *Maximum adult dose of acetaminophen is 4000 mg from all sources in 24 hours.* Given 12/17/2024 2:10 PM EDT 1 Tablet documented in this encounter Active and Recently Administered Medications Times are shown in EDT. Scheduled Medication Order 12/15/2024 12/16/2024 12/17/2024 ciprofloxacin HCl (CIPRO) tablet 500 mg (COMPLETED) 500 mg, Oral, ONCE, 1 dose, On 12/17/24 at 1445, Hold tube feeding 1 hour before/after administration. Do not take with milk, yogurt, or other dairy products. Take 2 hours before or 6 hours after antacids., Reason for Therapy: Medical Prophylaxis 1453 (Given - Provid er: Bhumika Viera RN) oxyCODONE-acetaminophen (PERCOCET) 5-325 mg per tablet 1 Tablet (COMPLETED) 1 Tablet, Oral, ONCE, 1 dose, On 12/17/24 at 1415, *Maximum adult dose of acetaminophen is 4000 mg from all sources in 24 hours.* 1410 (Given - Provid er: Bhumika Viera RN) documented in this encounter Care Teams Sample Body Builder Relationship Specialty Start Date End Date Shameka Reese MD [address] [place] [address] PCP - General Family Medicine 05/19/16 documented as of this encounter
--- OUTSIDE RECORDS SUMMARY | 2024-12-27 07:13 | XMS_ITS | Encounter Summary ---
Author Organization [place] [address] Care Team Providers Care Dough Maker Name Role Phone Shameka Reese MD Primary Care Provider [phone] Reason for Referral * Diagnostic X-Ray (Routine) - Pending Review Specialty Diagnoses / Procedures Referred By Contac t Referred To Contact Radiology Diagnoses IIH (idiopathic intracranial hypertension) Procedures FL GUIDED LUMBAR PUNCTURE DIAGNOSTIC Jessica Leach APRN [address] [place] [address] Phone: tel: fax: Referral ID Status Reason Start Date Expiration Date V isits Requested Visits Authorized [id number] Pending Review 12/05/2024 12/05/2025 1 1 Reason for Visit * Diagnostic X-Ray (Routine) - Pending Review Specialty Diagnoses / Procedures Referred By Contac t Referred To Contact Radiology Diagnoses IIH (idiopathic intracranial hypertension) Procedures FL GUIDED LUMBAR PUNCTURE DIAGNOSTIC Jessica Leach APRN [address] [place] [address] Phone: tel: fax: Referral ID Status Reason Start Date Expiration Date V isits Requested Visits Authorized [id number] Pending Review 12/05/2024 12/05/2025 1 1 Encounter Details Date Type Department Care Team (Late st Contact Info) Description 12/27/2024 7:13 AM EDT - 12/27/2024 7:22 AM EDT Hospital Encounter [facility]G X[facility] [place] [address] Jessica Leach, VOLCANOLOGY PROFESSOR [address] [place] [address] Marylu Gates PA-C [address] [place] [address] IIH (idiopathic intracranial hypertension) Discharge Disposition: Home or Self Care Social History Tobacco Use Types Packs/Day Years Used Date Smoking Tobacco: Never Passive Smoke Exposure: Never Smokeless Tobacco: Never Alcohol Use Standard Drinks/Week Comments Not Currently 0 (1 standard drink = 0.6 oz pur e alcohol) [facility] Utilities Answer Date Recorded In the past 12 months has [employer] electric, gas, oil, or water company threatened to shut off services in your home? No 07/01/2023 Overall Financial Resource Strain (CARDIA) Answe r Date Recorded How hard is it for you to pa y for the very basics like food, housing, medical care, and heating? Not very hard 07/01/2023 PHQ-2 Answer Date Recorded PHQ-2 Total Score 0 09/01/2024 [employer] [facility] - Occupational Stress [...] money to get more. Never true 07/01/2023 [facility] Transportation Answer D ate Recorded [...] Author No 06/19/2024 8:05 AM J Carlos eMndez RMA * Because of a physical, mental or emotional condition, does this person have difficulty doing errands alone such as visiting a doctor's office or shopping? Answer Date of Assessment Author No 06/19/2024 8:05 AM J Carlos Mendez RMMarlyn documented as of this encounter Mental Status * Because of a physical, mental or emotional condition, does this person have serious difficulty concentrating, remembering or making decisions? Answer Entry Date Author No 06/19/2024 8:05 AM J Carlos Mendez RMA documented in this encounter Discharge Instructions * Discharge Instructions* Maggie Newman RN - 12/27/2024 7:51 AM EDT MYELOGRAM/LUMBAR PUNCTURE DISCHARGE INSTRUCTIONS It is strongly recommended you rest for 24 hours Avoid heavy lifting (over 10 pounds) for 72 hours after the procedure. No strenuous activity for 72 hours after the procedure. Drink enough fluids to keep your urine clear or pale yellow. Caffeinated beverages are recommended. Resume regular diet as tolerated. Keep incision dry. Remove dressing after 1 day. If you develop a headache after your spinal procedure, we initially recommend the following: Lie in a comfortable position, preferably in a flat or near flat position. Drink enough fluids to keep your urine clear or pale yellow. 12-24 ounces every 4 hours is usually sufficient. Over the counter pain medications like Tylenol (acetaminophen) taken as directed on the label may help with symptoms. Generally, 85% of headaches after spinal procedures will resolve without any specific treatment. Please return to the emergency department of the nearest hospital facility if you have the following symptoms: Fever over 101 orally Chills, nausea, vomiting New weakness in arms or legs New, bilateral headache that worsens within 15 minutes of resuming the upright position and disappears or significantly improves within 30 minutes of lying flat and does not respond in a 12 hour period to the recommendations above The medication you received today may not totally be eliminated from your body for at least 24 hours. You should not drive a car, operate machinery, make any important decisions or drink alcoholic beverages for the next 24 hours. If you are taking Metformin, you may start taking this medication in 48 hours. You may take Tylenol if needed for discomfort; however do not take aspirin, ibuprofen (Motrin), Aleve (naproxen) or any other blood thinning products for 24 hours. A responsible adult should remain with the patient for the remainder of the day and night for patient's safety and protection. If the pain cannot be controlled with oral analgesics, you should go to the emergency room for further medical care. Contact the [facility] Nurse Navigator at [phone] Wednesday-Wednesday between 8a- 4p for any additional questions or concerns. documented in this encounter Medications at Time [...] under the skin once a week. 11/01/2024 sulfamethoxazole- trimethoprim (BACTRIM DS) 800-160 mg Oral Tablet Take 1 Tablet by mouth 2 times daily. for 10 days 12/19/2024 ciprofloxacin HCl (CIPRO) 500 mg Oral Tablet Take 1 Tablet by mouth 2 times daily for 10 days. 20 Tablet 12/17/2024 12/27/2024 documented as of this encounter Discharge Disposition Disposition Code Departure Means Destination Home or Self Care documented in this encounter Procedure Notes * Jordin Bailey PA - 12/27/2024 8:30 AM EDT LP Procedure Note Date: 12/27/2024 TIME:8:57 AM Following local anesthetic administration of 1% lidocaine, a lumbar puncture was performed at L3-R9dgocx using a 22 gauge spinal needle and a midline approach. Opening Pressure 20.2 cm H2O. Closing Pressure 17.8 cm H2O. 8 ml's total of clear CSF was withdrawn and placed sequentially in 4 separate test tubes. No immediate complication. Full report to follow. Performing Physician: URSULA Soriano with Francisco Guidry MD Signature: URSULA Soriano documented in this encounter Plan of Treatment Upcoming Encounters Date Type Department Care Team (Late st Contact Info) Description 03/09/2025 8:00 AM EST Office Visit [facility] NEUROLOGY [facility] [address] [place], [place] [id number] Jessica Leach, VOLCANOLOGY PROFESSOR [address] [place] [address] documented as of this encounter Goals Goal Patient Goal Type Associated Problems Recent Progress Patient-Stated? Author Blood Pressure < 140/90 Blood Pressure 122/84(2024 11:08 AM EDT) Gisselle Henderson CCMA Maintain a healthy diet, exercise regularly and maintain an ideal body weight General No Sol House RMA documented as of this encounter Procedures Procedure Name Priority Date/Time Associated Diagnosis Comments FL GUIDED LUMBAR PUNCTURE DIAGNOSTIC Routine 12/27/2024 9:08 AM EDT IIH (idiopathic intracranial hypertension) CSF CELL COUNT WITH DIFF Routine 12/27/2024 9:03 AM EDT IIH (idiopathic intracranial hypertension) CSF ANALYSIS: CELL COUNT W/REFLEX, GLUCOSE AND PROTEIN Routine 12/27/2024 9:03 AM EDT IIH (idiopathic intracranial hypertension) MENINGITIS/ENCEPH PANEL Routine 12/27/2024 9:03 AM EDT IIH (idiopathic intracranial hypertension) CEREBROSPINAL FLUID CULTURE (STAIN INCLUDED) Routine 12/27/2024 9:03 AM EDT IIH (idiopathic intracranial hypertension) PROTEIN CEREBROSPINAL FLUID Routine 12/27/2024 9:03 AM EDT IIH (idiopathic intracranial hypertension) GLUCOSE CEREBROSPINAL FLUID Routine 12/27/2024 9:03 AM EDT IIH (idiopathic intracranial hypertension) CBC STAT 12/27/2024 7:27 AM EDT IIH (idiopathic intracranial hypertension) PT / INR STAT 12/27/2024 7:27 AM EDT IIH (idiopathic intracranial hypertension) documented in this encounter Results * FL GUIDED LUMBAR PUNCTURE DIAGNOSTIC (12/27/2024 [...] 12/27/2024 9:08 AM Clinical indications: G93.2-Benign intracranial [id number] PROCEDURE: 1. Procedure performed by Chaz Bailey [...] 12/27/2024 9:08 AM Clinical indications: G93.2-Benign intracranial [id number] PROCEDURE: 1. Procedure performed by Chaz Bailey [...] Chaz Bailey PA-C/ Francisco Guidry M.D. Jessica S Kreimer VOLCANOLOGY PROFESSOR IMG FLUOROSCOPY ORDERABLES Final Result * (ABNORMAL) PROTEIN CEREBROSPINAL FLUID (12/27/2024 9:03 AM EDT) Protein CSF 13(L) 15 - 45 mg/dL 12/27/2024 10:04 AM EDT [facility] Cerebrospinal Fluid LUMBAR PUNCTURE / Unknown 12/27/2024 9:03 AM EDT 12/27/2024 9:14 AM EDT Jessica Leach VOLCANOLOGY PROFESSOR BODY FLUIDS AND STOOLS ORDE RABLES Final Result Performing Organization Address [facility]/[place] [address] * GLUCOSE CEREBROSPINAL FLUID (12/27/2024 9:03 AM EDT) Pathologist [facility] Glucose CSF 55 40 - 70 mg/dL 12/27/2024 10:04 AM EDT [facility] Cerebrospinal Fluid LUMBAR PUNCTURE / Unknown 12/27/2024 9:03 AM EDT 12/27/2024 9:14 AM EDT Jessica Leach VOLCANOLOGY PROFESSOR BODY FLUIDS AND STOOLS ORDE RABLES Final Result Performing Organization Address [facility]/[place] [address] * CSF CELL COUNT WITH DIFF (12/27/2024 9:03 AM EDT) CSF Tube Num 4 number 12/27/2024 10:16 AM EDT [facility] CSF Color Colorless Colorless color 12/27/2024 10:16 AM EDT [facility] CSF Appear Clear Clear appearance 12/27/2024 10:16 AM EDT [facility] CSF RBC 0 <=0 /mcL 12/27/2024 10:16 AM EDT [facility] CSF Total Nucleated Cells 2 0 - 5 /mcL 12/27/2024 10:16 AM EDT [facility] Cerebrospinal Fluid LUMBAR PUNCTURE / Unknown 12/27/2024 9:03 AM EDT 12/27/2024 9:14 AM EDT us Jessica Leach VOLCANOLOGY PROFESSOR BODY FLUIDS AND STOOLS REBECCA HADDAD Final Result [facility] [address] [place] [address] * MENINGITIS/ENCEPH PANEL (12/27/2024 9:03 AM EDT) [...] 12/27/2024 11:18 AM EDT [facility] (CMV) Cytomegalovirus Not Detected Not Detected 12/27/2024 11:18 AM EDT [facility] Comment:The Film Array [place] pa sumeet does not distinguish between latent and active CMV infection. Detection of this virus may indicate primary infection, secondary reactivation, or the presence of latent virus. Results should always be interpreted in conjunction with other clinical, laboratory and epidemiological information. (EV) Enterovirus Not Detected Not Detected 12/27/2024 11:18 AM EDT [facility] (HSV-1) Herpes simplex virus 1 Not Detected Not Detected 12/27/2024 11:18 AM EDT [facility] (HSV-2) Herpes simplex virus 2 Not Detected Not Detected 12/27/2024 11:18 AM EDT [facility] (HHV-6) Human herpesvirus 6 Not Detected Not Detected 12/27/2024 11:18 AM EDT [facility] Comment:The Film Array [place] pa sumeet does not distinguish between latent and active HHV-6 infection. Detection of this virus may indicate primary infection, secondary reactivation, or the presence of latent virus. Results should always be interpreted in conjunction with other clinical, laboratory and epidemiological information. (HPeV) Human parechovirus Not Detected Not Detected 12/27/2024 11:18 AM EDT [facility] (VZV) Varicella zoster virus Not Detected Not Detected 12/27/2024 11:18 AM EDT [facility] Cryptococcus neoformans/man Not Detected Not Detected 12/27/2024 11:18 AM EDT [facility] Cerebrospinal Fluid LUMBAR PUNCTURE / Unknown 12/27/2024 9:03 AM EDT 12/27/2024 9:14 AM EDT us Jessica Leach APRN BODY FLUIDS AND STOOLS REBECCA HADDAD Final Result Performing Organization Address [facility]/State/ZIP Co de Phone Number [facility] [address] , [place] [address] * CEREBROSPINAL FLUID CULTURE (STAIN INCLUDED) (12/27/2024 9:03 AM EDT) Culture No Growth at 5 days. 01/01/2025 7:18 AM EDT [facility] Stain No WBCs 01/01/2025 7:18 AM EDT [facility] Stain No organisms seen 01/01/2025 7:18 AM EDT [facility] Cerebrospinal Fluid LUMBAR PUNCTURE / Unknown 12/27/2024 9:03 AM EDT 12/27/2024 9:14 AM EDT us Jessica Leach APRN MICROBIOLOGY - GENERAL REBECCA HADDAD Final Result [facility] [address], [place] [address] * CBC (12/27/2024 7:27 AM EDT) WBC 4.7 3.7 - 10.3 x10(3)/mcL 12/27/2024 7:43 AM EDT [facility] RBC 4.53 3.90 - 5.20 x10(6)/mcL 12/27/2024 7:43 AM EDT [facility] Hgb 13.2 11.2 - 15.7 g/dL 12/27/2024 7:43 AM EDT [facility] Hct 41.1 34.0 - 45.0 % 12/27/2024 7:43 AM EDT [facility] MCV 90.7 80.0 - 100.0 fL 12/27/2024 7:43 AM EDT [facility] MCH 29.1 26.0 - 34.0 pg 12/27/2024 7:43 AM EDT [facility] MCHC 32.1 30.7 - 35.5 g/dL 12/27/2024 7:43 AM EDT [facility] RDW 12.4 <=14.9 % 12/27/2024 7:43 AM EDT [facility] Platelet 347 155 - 369 x10(3)/mcL 12/27/2024 7:43 AM EDT [facility] MPV 8.9 8.8 - 12.5 fL 12/27/2024 7:43 AM EDT [facility] Blood VENOUS BLOOD / Unknown Venipuncture / Unknown 12/27/2024 7:27 AM EDT 12/27/2024 7:27 AM EDT us Marylu Gates PA-C HEMATOLOGY ORDERABLES Fi nal Result [facility] [address] [place] [address] * PT / INR (12/27/2024 7:27 AM EDT) PT 11.5 10.5 - 13.6 second(s) 12/27/2024 7:51 AM EDT [facility] IN[facility] 1.00 0.91 - 1.18 (ratio) 12/27/2024 7:51 AM EDT [facility] Comment: Level of Therapy Indications Target INR Range Standard Dose Treatment and prophylaxis of venous 2.0 - 3.0 thrombosis, pulmonary embolism High Dose High risk patients with mechanical 2.5 - 3.5 heart valves Blood VENOUS BLOOD / Unknown Venipuncture / Unknown 12/27/2024 7:27 AM EDT 12/27/2024 7:27 AM EDT Marylu Gates PA-C HEMATOLOGY ORDERABLES Fi nal Result [facility] [address] [place] [address] documented in this encounter Visit Diagnoses Diagnosis IIH (idiopathic intracranial hypertension) Benign intracranial hypertension documented in this encounter Administered Medications Inactive Administered Medications - up to 1 most recent administrations Medication Order MAR Action Action Date Dose Rate Site lidocaine 10 mg/mL (1 %) injection (PF) 10 mL 10 mL, Intradermal, ONCE PRN, 1 dose, Starting on Wed12/27/24 at 0826, Until Wed12/27/24 at 0826, Radiology Procedure, Radiology Given 12/27/2024 8:26 AM EDT 10 mL documented in this encounter Orders Medications Ordered That Joel ht Not Have Been Administered Count Last Ordered Date First Ordered Date lidocaine 10 mg/mL (1 %) inj ection (PF) 10 mL 1 12/27/2024 documented in this encounter Care Teams Dough Maker Relationship Specialty Start Date End Date Shameka Reese MD [address] [place] [address] PCP - General Family Medicine 05/19/16 documented as of this encounter
--- OUTSIDE RECORDS SUMMARY | 2024-12-27 07:23 | XMS_ITS | Encounter Summary ---
Author Organization [place] [address] Care Team Providers Care Patient Partner Name Role Phone Shameka Reese MD Primary Care Provider [phone] Encounter Details Date Type Department Care Team (Late st Contact Info) Description 12/27/2024 7:23 AM EDT - 12/27/2024 11:59 PM EDT Hospital Encounter [facility] [place] [address] Jessica Leach, PROGRAM REVIEW DIRECTOR [address] [place] [address] Discharge Disposition: Home or Self Care Social History Tobacco Use Types Packs/Day Years Used Date Smoking Tobacco: Never Passive Smoke Exposure: Never Smokeless Tobacco: Never Alcohol Use Standard Drinks/Week Comments Not Currently 0 (1 standard drink = 0.6 oz pur e alcohol) [facility] Utilities Answer Date Recorded In the past 12 months has [employer] electric, gas, oil, or water company threatened to shut off services in your home? No 07/01/2023 Overall Financial Resource Strain (CARDIA) Answe r Date Recorded How hard is it for you to pa y for the very basics like food, housing, medical care, and heating? Not very hard 07/01/2023 PHQ-2 Answer Date Recorded PHQ-2 Total Score 0 09/01/2024 [facility] [...] money to get more. Never true 07/01/2023 [facility] IP Transportation Answer D ate Recorded [...] of Assessment Author No 06/19/2024 8:05 AM ANNMARIE J Carlos Babcock RMA documented as of this encounter Mental Status * Because of a physical, mental or emotional condition, does this person have serious difficulty concentrating, remembering or making decisions? Answer Entry Date Author No 06/19/2024 8:05 AM ANNMARIE J Carlos Babcock RMA documented in this encounter Medications at Time of Discharge albuterol (PROVENTIL HFA;VENTOLIN HFA) 90 mcg/actuation Inhl HFA Aerosol InhalerIndications :Acute bronchitis, unspecified organism Inhale 2 Puffs into the lungs every 4 hours as needed for Wheezing. 1 Each 2 02/17/2023 atogepant 60 mg Oral Tablet Take 1 Tablet by mouth daily. 30 Tablet 11 12/08/2024 busPIRone (BUSPAR) 10 mg Oral TabletIndications: PTSD [...] by mouth. ondansetron (ZOFRAN) 4 mg Oral TabletIndications: Nausea Take 1 Tablet by mouth every 4 hours as needed for Nausea. 60 Tablet 5 11/29/2024 pantoprazole (PROTONIX) 40 mg Oral Tablet, Delayed Release (E.C.)Indications: Gastroesophageal reflux disease with esophagitis, unspecified whether hemorrhage Take 1 Tablet by mouth 2 times daily. 180 Tablet 2 08/24/2024 sulfamethoxazole-t rimethoprim (BACTRIM DS) 800-160 mg Oral Tablet Take 1 Tablet by mouth 2 times daily. for 10 days 12/19/2024 tirzepatide, weight loss, 7.5 mg/0.5 mL SubQ [...] week. 11/01/2024 documented as of this encounter Discharge Disposition Disposition Code Departure Means Destination Home or Self Care documented in this encounter Plan of Treatment Upcoming Encounters Date Type Department Care Team (Late st Contact Info) Description 03/09/2025 8:00 AM EST Office Visit [facility] NEUROLOGY [facility] [address] [place] [address] Jessica Leach, PROGRAM REVIEW DIRECTOR [address] [place] [address] documented as of this encounter Goals Goal Patient Goal Type Associated Problems Recent Progress Patient-Stated? Author Blood Pressure < 140/90 Blood Pressure 122/84(2024 11:08 AM EDT) Gisselle Henderson, JESSA Maintain a healthy diet, exercise regularly and maintain an ideal body weight General No Sol House, RMA documented as of this encounter Visit Diagnoses Not on filedocumented in this encounter Care Teams Patient Partner Relationship Specialty Start Date End Date Shameka Reese MD [address] [place] [address] PCP - General Family Medicine 05/19/16 documented as of this encounter
--- OUTSIDE RECORDS SUMMARY | 2024-12-29 08:40 | XMS_ITS | Encounter Summary ---
Author Organization [place] [address] Care Team Providers Care Card Tender Name Role Phone Shameka Reese MD Primary Care Provider [phone] Reason for Visit * Consultation (Routine) - Authorization Not Needed Specialty Diagnoses / Procedures Referred By Vineet t Referred To Contact Ophthalmology Diagnoses IIH (idiopathic intracranial hypertension) Procedures MD OFFICE/OUTPATIENT NEW MODERATE MDM 45 MINUTES Jessica Leach, SENIOR COMMUNICATIONS SPECIALIST [address] [place] [address] Phone: tel: fax: Referral ID Status Reason Start Date Expiration Date Visits Requested Visits Authorized [id number] Authorization Not Needed Specialty Services Required 5 12/05/2025 1 1 Encounter Details Date Type Department Care Team (Late st Contact Info) Description 12/29/2024 8:40 AM EDT Office Visit [facility] [address] [facility] [address] [place] [address] Jonathan Saldana, OD [address] [place] [address] Encounter for complete eye exam (Primary Dx); Refractive error Social History Tobacco Use Types Packs/Day Years Used Date Smoking Tobacco: Never Passive Smoke Exposure: Never Smokeless Tobacco: Never Alcohol Use Standard Drinks/Week Comments Not Currently 0 (1 standard drink = 0.6 oz pur e alcohol) [facility] Utilities Answer Date Recorded In [...] Date Recorded PHQ-2 Total Score 0 09/01/2024 [facility] [place] of Occupat ional Health - Occupational Stress [...] money to get more. Never true 07/01/2023 [facility] IP Transportation Answer D ate Recorded [...] documented in this encounter Progress Notes * Jonathan Saldana, OD - 12/29/2024 9:48 AM EDTAssociated Problem(s): Refractive error Discussed with patient changes in vision and prescription. Rx Computer Rx. * Jonathan Saldana, OD - 12/29/2024 9:47 AM EDTAssociated Problem(s): Encounter for complete eye exam Referred by Jessica Leach for suspicion of Papilledema/IIH. Todays findings: No Signs of Papilledema today. OCT RNFL: Normal OD/OS 24-2 HVF: No signs of compression or cecocentral defects Color vision: Normal OD/OS Secure chat of findings to Neuro. * Jonathan Saldana, OD - 12/29/2024 8:40 AM EDT Subjective: Patient ID: Marleni Padgett is a White or 29 y.o.female. Assessment and Plan: Diagnoses and all orders for this visit: Encounter for complete eye exam Assessment & Plan: Referred by Jessica Leach for suspicion of Papilledema/IIH. Todays findings: No Signs of Papilledema today. OCT RNFL: Normal OD/OS 24-2 HVF: No signs of compression or cecocentral defects Color vision: Normal OD/OS Secure chat of findings to Neuro. Refractive error Assessment & Plan: Discussed with patient changes in vision and prescription. Rx Computer Rx. FOLLOW UP 1 Year for CEE No follow-ups on file. No chief complaint on file. HPI IIH patient pt states she has no va issues other than intense migraine with vomiting/aura that affect va at thetime of episode, episodes 2-3 days a week, lasts all day doesn't wear any correction onset 1 year, becoming more intense had spinal tap yesterday, has MRI scheduled next denies using any eye drops Patients past medical, family and social histories were reviewed and updated. There were no changesexcept as noted. ROS Positive for: Eyes Objective: Eye Exam: Base Eye Exam Visual Acuity (Snellen - Linear) Right Left Both Dist sc 20/20 20/20 Near sc j1+ Tonometry (icare, 9:15 AM) Right Left Pressure 21 21 Pupils Pupils Dark Light Shape React APD Right PERRL 4 3 Round 3 None Left PERRL 4 3 Round 3 None Visual Woods Right Left Full Full Extraocular Movement Right Left Full, Ortho Full, Ortho Neuro/Psych Oriented x3: Yes Mood/Affect: Normal Dilation Both eyes: 1.0% Mydriacyl, 2.5% Phenylephrine @ 9:16 AM Additional Tests Color Right Left Ishihara 14/14 14/14 Slit Lamp and Fundus Exam External Exam Right Left External Normal Normal Slit Lamp Exam Right Left Lids/Lashes Normal Normal Conjunctiva/Sclera White and quiet White and quiet Cornea Clear Clear Anterior Chamber Deep and quiet Deep and quiet Iris Normal Normal Lens Clear Clear Anterior Vitreous Normal Normal Fundus Exam Right Left Disc Normal Normal C/D Ratio .50 .50 Macula Normal Normal Vessels Normal Normal Periphery Normal Normal Refraction Wearing Rx doesn't wear any Manifest Refraction doesn't need or want Final Rx Sphere Cylinder Right +0.75 Sphere Left +0.75 Sphere Type: Blue Alec Computer Rx Expiration Date: 1 Year Procedure: documented in this encounter Plan of Treatment Upcoming Encounters Date Type Department Care Team (Late st Contact Info) Description 03/09/2025 8:00 AM EST Office Visit [facility] [address] [place] [address] Jessica LeachDEBBIE [address] [place] [address] Scheduled Orders Name Type Priority Associated Diagnoses Orde r Schedule MD DETERMINATION REFRACTIVE STATE MD Charge Routine Refractive error Ordered: 12/29/2024 documented as of this encounter Goals Goal Patient Goal Type Associated Problems Recent Progress Patient-Stated? Author Blood Pressure < 140/90 Blood Pressure 122/84(2024 11:08 AM EDT) No Gisselle Del Cid CCMA Maintain a healthy diet, exercise regularly and maintain an ideal body weight General No Sol House, RMMarlyn documented as of this encounter Visit Diagnoses Diagnosis Encounter for complete eye exam- Primary Refractive error Unspecified disorder of refraction and accommodation documented in this encounter Historical Medications * This list may reflect changes made after this encounter. sulfamethoxazole- trimethoprim (BACTRIM DS) 800-160 mg Oral Tablet Take 1 Tablet by mouth 2 times daily. for 10 days 12/19/2024 added in this encounter Eye Exam Visual Acuity (Snellen - Linear) Right eye Left eye Both eyes Dist sc 20/20 20/20 Near sc j1+ Tonometry (icare, 9:15 AM) Right eye Left eye Pressure 21 21 Pupils Pupils Dark Light Shape React APD Right eye PERRL 4 3 Round 3 None Left eye PERRL 4 3 Round 3 None Visual Woods Right eye Left eye Full Full Extraocular Movement Right eye Left eye Full, Ortho Full, Ortho Neuro/Psych Oriented x3: Yes Mood/Affect: Normal Dilation Both eyes: 1.0% Mydriacyl, 2 .5% Phenylephrine @ 9:16 AM Color Right eye Left eye Ishihara External Exam Right eye Left eye External Normal Normal Slit Lamp Exam Right eye Left eye Lids/Lashes Normal Normal Conjunctiva/Sclera White and quiet White and nayeli et Cornea Clear Clear Anterior Chamber Deep and quiet Deep and quiet Iris Normal Normal Lens Clear Clear Anterior Vitreous Normal Normal Fundus Exam Right eye Left eye Disc Normal Normal C/D Ratio .50 .50 Macula Normal Normal Vessels Normal Normal Periphery Normal Normal Wearing Rx doesn't wear any Manifest Refraction doesn't need or want Final Rx Sphere Cylinder Right eye +0.75 Sphere Left eye +0.75 Sphere Type: Blue Alec Computer Rx Expiration Date: 1 Year Care Teams Card Tender Relationship Specialty Start Date End Date Shameka Reese MD [address] [place] [address] PCP - General Family Medicine 05/19/16 documented as of this encounter
--- OUTSIDE RECORDS SUMMARY | 2024-12-29 14:34 | XMS_ITS | Encounter Summary ---
Author Organization [place] [address] Care Team Providers Care Freight Agent Name Role Phone Shameka Reese MD Primary Care Provider [phone] Reason for Referral * MRI/CAT Scan (Routine) - PCP Precert Acquired Specialty Diagnoses / Procedures Referred By Contac t Referred To Contact Radiology Diagnoses IIH (idiopathic intracranial hypertension) Procedures MRI VENOGRAM INTRACRANIAL WO CONTRAST Jessica Leach APRN [address] [place] [address] Phone: tel: fax: [facility] MRI [address] [place] [address] Phone: tel: Referral ID Status Reason Start Date Expiration Date V isits Requested Visits Authorized [id number] PCP Precert Acquired 12/05/2024 12/05/2025 1 1 Reason for Visit * MRI/CAT Scan (Routine) - PCP Precert Acquired Specialty Diagnoses / Procedures Referred By Contac t Referred To Contact Radiology Diagnoses IIH (idiopathic intracranial hypertension) Procedures MRI VENOGRAM INTRACRANIAL WO CONTRAST Jessica Leach APRN [address] [place] [address] Phone: tel: fax: [facility] MRI [address] [place] [address] Phone: tel: Referral ID Status Reason Start Date Expiration Date V isits Requested Visits Authorized [id number] PCP Precert Acquired 12/05/2024 12/05/2025 1 1 Encounter Details Date Type Department Care Team (Late st Contact Info) Description 12/29/2024 2:34 PM EDT - 12/29/2024 11:59 PM EDT Hospital Encounter [facility] MRI [address] [place] [address] Jessica Leach, SUPERINTENDENT [employer] [address] [place] [address] IIH (idiopathic intracranial hypertension) Discharge Disposition: Home or Self Care Social History Tobacco Use Types Packs/Day Years Used Date Smoking Tobacco: Never Passive Smoke Exposure: Never Smokeless Tobacco: Never Alcohol Use Standard Drinks/Week Comments Not Currently 0 (1 standard drink = 0.6 oz pur e alcohol) [facility] Utilities Answer Date Recorded In the [...] Date Recorded PHQ-2 Total Score 0 09/01/2024 [facility] [place] of Occupat ional Health - Occupational Stress [...] money to get more. Never true 07/01/2023 [facility] IP Transportation Answer D ate Recorded In [...] Carlos Mendez RMA documented in this encounter Medications at [...] EST Office Visit [facility] [address] [facility] [place] [address] Jessica Leach, SUPERINTENDENT [employer] [address] [place] [address] documented as of this encounter Goals Goal Patient Goal Type Associated Problems Recent Progress Patient-Stated? Author Blood Pressure < 140/90 Blood Pressure 122/84(2024 11:08 AM EDT) No Gisselle Del Cid CCMA Maintain a healthy diet, exercise regularly and maintain an ideal body weight General No Sol House RMA documented as of this encounter Procedures Procedure Name Priority Date/Time Associated Diagnosis Comments MRI VENOGRAM INTRACRANIAL WO CONTRAST Routine 12/29/2024 3:20 PM EDT IIH (idiopathic intracranial hypertension) documented in this encounter Results * MRI VENOGRAM INTRACRANIAL [...] CLINICAL HISTORY: 29 years-old with G93.2-Benign intracranial [id number] COMPARISON: MRI brain with without contrast 09/29/2024. [...] CLINICAL HISTORY: 29 years-old with G93.2-Benign intracranial [id number] COMPARISON: MRI brain with without contrast 09/29/2024. [...] office of the ordering clinician. Jessica Leach SUPERINTENDENT [employer] IMG MRI ORDERABLES Final Re sult documented in this encounter Visit Diagnoses Diagnosis IIH (idiopathic intracranial hypertension) Benign intracranial hypertension documented in this encounter Care Teams Freight Agent Relationship Specialty Start Date End Date Shameka Reese MD [address] [place] [address] PCP - General Family Medicine 05/19/16 documented as of this encounter
--- OUTSIDE RECORDS SUMMARY | 2025-01-01 11:10 | XMS_ITS | Encounter Summary ---
Author Organization [place] [address] Care Team Providers Care Cyber Engineer Name Role Phone Shameka Reese MD Primary Care Provider Reason for Referral * (Routine) - Pending Review Specialty Diagnoses / Procedures Referred By Contrich t Referred To Contact Diagnoses Kidney stones Procedures AMB [place] [address] [place] [address] Phone: tel: fax: Referral ID Status Reason Start Date Expiration Date V isits Requested Visits Authorized [id number] Pending Review 01/01/2025 01/01/2026 1 1 * MRI/CAT Scan (Emergency) - Pending Review Specialty Diagnoses / Procedures Referred By Vineet tanner Referred To Contact Radiology Diagnoses Kidney stones Procedures CT ABDOMEN PELVIS WO ORAL OR IV CONTRAST New Marroquin MD [address] [facility] [address] [place] [address] Phone: tel: fax: [facility] [address] [place] [address] Phone: tel: Referral ID Status Reason Start Date Expiration Date V isits Requested Visits Authorized [id number] Pending Review 01/01/2025 01/01/2026 1 1 Reason for Visit * Reason Comments New Patient Pt is here with a 8m m stone, and wanting to discuss treatment options. * Consultation (Emergency) - Authorization Not Needed Specialty Diagnoses / Procedures Referred By Vineet t Referred To Contact Urology Diagnoses Bilateral kidney stones Procedures CA OFFICE/OUTPATIENT NEW MODERATE MDM 45 MINUTES Jim Bain, FIELD AIDE [address] [place] [address] Phone: tel: fax: [facility] [address] [address] Phone: tel: fax: Referral ID Status Reason Start Date Expiration Date Visits Requested Visits Authorized [id number] Authorization Not Needed Specialty Services Required 12/19/2024 12/19/2025 99 99 Encounter Details Date Type Department Care Team (Late st Contact Info) Description 01/01/2025 11:10 AM EDT Office Visit [facility] [address] [place] [address] [place] [phone] [place] [address] [place], [place] [id number] Kidney stones (Primary Dx) Social History Tobacco Use Types Packs/Day Years Used Date Smoking Tobacco: Never Passive Smoke Exposure: Never Smokeless Tobacco: Never Alcohol Use Standard Drinks/Week Comments Not Currently 0 (1 standard drink = 0.6 oz pur e alcohol) [facility] Utilities Answer Date Recorded In the [...] Date Recorded PHQ-2 Total Score 0 09/01/2024 [employer] [facility] [facility] - Occupational Stress [...] to get more. Never true 07/01/2023 [facility] IP Transportation Answer D ate Recorded [...] Sign Reading Time Taken Comments Blood Pressure 122/84 01/01/2025 11:08 AM EDT Pulse 84 01/01/2025 11:08 AM EDT Temperature 36.3 C (97.4 F) 01/01/2025 11:08 AM EDT Respiratory Rate - - Oxygen Saturation 97% 01/01/2025 11:08 AM EDT Inhaled Oxygen Concentration - - Weight 97.5 kg (215 lb) 01/01/2025 11:08 AM EDT Height 149.9 cm (4' 11 ) 01/01/2025 11:08 AM EDT Body Mass Index 43.42 01/01/2025 11:08 AM EDT documented in this encounter Functional [...] Assessment Author No 06/19/2024 8:05 AM ANNMARIE Babcock J Carlos RMA * Does this person have difficulty [...] Date Author No 06/19/2024 8:05 AM ANNMARIE Babcock J Carlos RMMarlyn documented in this encounter Progress Notes * New Marroquin MD - 01/01/2025 11:10 AM EDT Images from the original note were not included. [facility] Urology Assessment: 29 y.o. female with 1. Kidney stones Plan: 1. Kidney stones (Primary) Check stat CTSP Further recommendations based on result. - CT ABDOMEN PELVIS WO ORAL OR IV CONTRAST; Future All questions answered. She verbalized full understanding of the care plan. Chief Complaint: Chief Complaint Patient presents with New Patient Pt is here with a 8mm stone, and wanting to discuss treatment options. HPI: 29 y.o. female with h/o kidney infection 2 weeks ago due to a stone , was admitted to [facility], says that she passed one stone and was told that she has a 8 mm stone in her right kidney. Reports pain in her R flank, no nausea/vomiting/fever Past Medical History: Past Medical History: Diagnosis Date ASD (atrial septal defect) 06/01/2017 resolved Depression GERD (gastroesophageal reflux disease) Migraine Other seasonal allergic rhinitis PCOS (polycystic ovarian syndrome) Pneumonia 03/11 Renal calculus, right 11/19/2017 Urinary tract infection history of Vulval or perineal trauma during delivery with problem 05/25/2017 Past Surgical History: Past Surgical History: Procedure Laterality Date SECTION N/A 08/12/2017 PRIMARY SECTION VIA LOW TRANSVERSE UTERINE INCISION AT 1542; Surgeon: Lisa Hannon MD; Location: [facility]; Service: Gynecology SECTION N/A 10/05/2021 REPEAT SECTION. skin incision at 1037, uterine at 1040, delivered at 1041, placenta [id number].; Surgeon: Marline Byrnes MD; Location: [facility]; Service: Obstetrics CYSTOSCOPY Right 11/19/2017 CYSTOSCOPY RIGHT STENT INSERTION; Surgeon: Sam Daily MD; Location: [facility]; Service: Urology CYSTOSCOPY Right 12/25/2021 cystoscopy right stent removal ; Surgeon: Juan Mackenzie MD; Location: [facility]; Service:Urology FL GUIDED LUMBAR PUNCTURE DIAGNOSTIC 12/27/2024 FL GUIDED LUMBAR PUNCTURE DIAGNOSTIC 12/27/2024 Marylu Gates PA-C [facility] XRAY GASTRECTOMY N/A 06/30/2023 Robotic sleeve gastrectomy; Surgeon: Lula Ruvalcaba MD; Location: [facility]; Service: General TONSILLECTOMY 2000 TONSILLECTOMY 2004 VAGINA SURGERY 11/06/2015 repair of third degree obstetrical laceration Family History: Family History Problem Relation Age of Onset Migraines Mother Eclampsia Mother Spont Abortions Mother Stroke Mother Diabetes Father Hypertension Father Dementia Maternal Grandmother Mult Sclerosis Maternal Grandfather Depression Paternal Grandmother brain ca Cancer Paternal Grandmother Other (brain aneurysm) Paternal Grandmother Brain Cancer Paternal Grandmother Diabetes Paternal Grandfather Heart Disease Paternal Grandfather Anesth Problems Neg Hx Social History: Social History Socioeconomic History Marital status: Spouse name: Not on file Number of children: 3 Years of education: Not on file Highest education level: Not on file Occupational History Not on file Tobacco Use Smoking status: Never Passive exposure: Never Smokeless tobacco: Never Vaping Use Vaping status: Never Used Substance and Sexual Activity Alcohol use: Not Currently Drug use: No Sexual activity: Yes Partners: Male Other Topics Concern Not on file Social History Narrative Merged History Encounter Social [...] true Transportation Needs: No Transportation Needs (07/01/2023) [facility] IP Transportation In the past 12 months, has lack of reliable transportation kept you from medical appointments, meetings, work or from getting things needed for daily living?: No Physical Activity: Inactive (07/01/2023) Exercise Vital Sign Days of Exercise per Week: 0 days Minutes of Exercise per Session: 0 min Stress: No Stress Concern Present (07/01/2023) [employer] - Occupational Stress Questionnaire Feeling of Stress : Not at all Social Connections: Not on file Intimate Partner Violence: Low Risk (02/05/2022) Received from [facility] Intimate Partner Violence Insults You: Not on file Threatens You: Not on file Screams at You: Not on file Physically Hurt: Not on file Intimate Partner Violence Score: Not on file Housing Stability: Not on file Current Outpatient Medications: Current Outpatient Medications on File Prior to Visit Medication Sig Dispense Refill albuterol (PROVENTIL HFA;VENTOLIN HFA) 90 mcg/actuation Inhl HFA Aerosol Inhaler Inhale 2 Puffs into the lungs every 4 hours as needed for Wheezing. 1 Each 2 atogepant 60 mg Oral Tablet Take 1 Tablet by mouth daily. 30 Tablet 11 busPIRone (BUSPAR) 10 mg Oral Tablet Take [...] mouth 2 times daily. 180 Tablet 2 tirzepatide, weight loss, 7.5 mg/0.5 mL SubQ Solution Inject 7.5 mg under the skin once a week. 3 mL 1 ubrogepant (UBRELVY) 100 mg Oral Tablet Take one tablet by mouth at onset of migraine. May repeat dose in 2 hours one time up to a maximum of 200mg per 24 hours. 16 Tablet 11 ZEPBOUND 5 mg/0.5 mL SubQ Pen Injector Inject 5 mg under the skin once a week. sulfamethoxazole-trimethoprim (BACTRIM DS) 800-160 mg Oral Tablet Take 1 Tablet by mouth 2 times daily. for 10 days (Patient not taking: Reported on 01/01/2025) No current facility-administered medications on file prior to visit. Allergies: Allergies Allergen Reactions Suprax [Cefixime] Hives Brethine [Terbutaline] Palpitations It made me out of it Nsaids (Non-Steroidal Anti-Inflammatory Drug) Other (See Comments) HX GASTRIC SLEEVE! Review of Systems: All other systems negative except HPI Physical Exam: Vitals: 01/01/25 1108 BP: 122/84 Pulse: 84 Temp: 97.4 ??F (36.3 ??C) SpO2: 97% Body mass index is 43.42 kg/m??. Vitals and point of care testing reviewed General appearance - well appearing, and in no distress, atraumatic, normocephalic Abdomen - soft, nontender, nondistended, no masses or organomegaly no rebound tenderness noted; bowel sounds normal no suprapubic distension or tenderness noted; no CVA tenderness Neuro - no focal deficit Mental status - awake and alert, oriented with normal speech EENT - sclera anicteric, mucous membranes moist Chest - symmetric air entry, normal inspiratory effort; nontender Heart - regular rate and rhythm Immune - no cervical lymphadenopathy Extremities - nontender, no clubbing or cyanosis Skin - normal coloration and turgor Labs: Lab Results Component Value Date WBC 4.7 12/27/2024 HGB 13.2 12/27/2024 HCT 41.1 12/27/2024 PLT 347 12/27/2024 Lab Results Component Value Date CREATININE 0.79 12/17/2024 BUN 10 12/17/2024 NA 138 12/17/2024 K 3.9 12/17/2024 Lab Results Component Value Date HGBA1C 4.8 11/29/2024 Results for orders placed or performed in visit on 01/01/25 [facility] UR[facility]ALYSIS POC Result Value Ref Range UA Color POC Yellow Color UA Appear POC Clear Clear UA Gluc POC Negative Negative mg/dL UA Bili POC Negative Negative UA Ketones POC Negative Negative mg/dL UA SG POC 1.020 1.001 - 1.035 no units UA Blood POC Trace-Intact (A) Negative UA pH POC 8.5 (H) 5.0 - 8.0 pH UA Protein POC Trace (A) Negative mg/dL UA Urobilinogen POC 0.2 0.2, 1.0 UA Nitrite POC Negative Negative UA Leuk Est POC Small (A) Negative Electronically signed: 01/01/2025 New Marroquin MD [facility] [address] [facility], [address] [place] [address] documented in this encounter Plan of Treatment Upcoming Encounters Date Type Department Care Team (Late st Contact Info) Description 03/09/2025 8:00 AM EST Office Visit [facility] [address] [facility] [address] [place] [address] Jessica Leach APRN [address] [place] [address] documented as of this encounter Goals Goal Patient Goal Type Associated Problems Recent Progress Patient-Stated? Author Blood Pressure < 140/90 Blood Pressure 122/84(2024 11:08 AM EDT) No Gisselle Del Cid CCMA Maintain a healthy diet, exercise regularly and maintain an ideal body weight General No Sol House RMA documented as of this encounter Procedures Procedure Name Priority Date/Time Associated Diagnosis Comments [facility] URINALYSIS POC Routine 01/01/2025 11 :14 AM EDT Kidney stones documented in this encounter Results * CT ABDOMEN PELVIS WO ORAL OR IV CONTRAST (01/01/2025 2:47 PM EDT) Anatomical Region Laterality Modality Abdomen, Pelvis Computed Tomogra phy 01/01/2025 2:47 PM EDT Impressions 01/01/2025 3:16 PM EDT 1. Obstructing 6 mm RIGHT ureteropelvic junction calculus. Narrative 01/01/2025 3:[address] ABDOMEN PELVIS WO ORAL OR IV CONTRAST 01/01/2025 2:47 PM HISTORY: N20.0-Calculus of [id number]-CM PROCEDURE: CT abdomen pelvis noncontrast. FINDINGS: Lung bases are unremarkable. Liver spleen pancreas and adrenals are normal. There is moderate to severe pelvic calyceal dilatation to the level of a RIGHT ureteropelvic junction calculus measuring 6 mm. 2 mm LEFT nonobstructive intrarenal calculus. Visualized bowel and mesentery are unremarkable. Procedure Note Joshua Schultz MD - 01/01/2025 CT ABDOMEN PELVIS WO ORAL OR IV CONTRAST 01/01/2025 2:47 PM HISTORY: N20.0-Calculus of [id number]-CM PROCEDURE: CT abdomen pelvis noncontrast. FINDINGS: Lung bases are unremarkable. Liver spleen pancreas and adrenals are normal. There is moderate tosevere pelvic calyceal dilatation to the level of a RIGHT ureteropelvicjunction calculus measuring 6 mm. 2 mm LEFT nonobstructive intrarenal calculus. Visualized bowel and mesentery are unremarkable. IMPRESSION: 1. Obstructing 6 mm RIGHT ureteropelvic junction calculus. New Marroquin MD IMG CT ORDERABLES Final R esult * (ABNORMAL) [facility] URINALYSIS POC (01/01/2025 11:14 AM EDT) UA Color POC Yellow Color 01/01/2025 11:17 AM EDT [facility] [place] UA Appear POC Clear Clear 01/01/2025 11:17 AM EDT [facility] [place] UA Gluc POC Negative Negative mg/dL 01/01/2025 11:17 AM EDT [facility] [place] UA Bili POC Negative Negative 01/01/2025 11:17 AM EDT [facility] [place] UA Ketones POC Negative Negative mg/dL 01/01/2025 11:17 AM EDT [facility] UA SG POC 1.020 1.001 - 1.035 no units 01/01/2025 11:17 AM EDT [facility] UA Blood POC Trace-Intact (A) Negative 01/01/2025 11:17 AM EDT [facility] UA pH POC 8.5(H) 5.0 - 8.0 pH 01/01/2025 11:17 AM EDT [facility] [place] UA Protein POC Trace(A) Negative mg/dL 01/01/2025 11:17 AM EDT [facility] UA Urobilinogen POC 0.2 0.2, 1.0 01/01/2025 11:17 AM EDT [facility] UA Nitrite POC Negative Negative 01/01/2025 11:17 AM EDT [facility] Leuk Est POC Small(A) Negative 11:17 AM EDT [facility] Urine STRUCTURE OF URINARY TRACT PROPER / Unknown 01/01/2025 11:14 AM EDT 01/01/2025 11:17 AM EDT New Marroquin MD POINT OF CARE TEST ORDERA BLES Final Result [facility] [address] [place], [place] [id number] documented in this encounter Visit Diagnoses Diagnosis Kidney stones- Primary Calculus of kidney Kidney stones Calculus of kidney documented in this encounter Orders Nursing Count Last Ordered Date First Orde red Date AMB URO SURGERY COMM ORDER 1 01/01/2025 documented in this encounter Care Teams Cyber Engineer Relationship Specialty Start Date End Date Shameka Reese MD [address] [place] [address] PCP - General Family Medicine 05/19/16 documented as of this encounter
--- OUTSIDE RECORDS SUMMARY | 2025-01-01 14:43 | XMS_ITS | Encounter Summary ---
Author Organization [place] [address] Care Team Providers Care Batch Heat Treat Operator Name Role Phone Shameka Reese MD Primary Care Provider [phone] Reason for Referral * MRI/CAT Scan (Emergency) - Pending Review Specialty Diagnoses / Procedures Referred By Contac t Referred To Contact Radiology Diagnoses Kidney stones Procedures CT ABDOMEN PELVIS [place] [address] [place] [address] [place] [address] Phone: tel: fax: [facility] [address] [facility] [place] [address] Phone: tel: Referral ID Status Reason Start Date Expiration Date V isits Requested Visits Authorized [id number] Pending Review 01/01/2025 01/01/2026 1 1 Reason for Visit * MRI/CAT Scan (Emergency) - Pending Review Specialty Diagnoses / Procedures Referred By Contac t Referred To Contact Radiology Diagnoses Kidney stones Procedures CT ABDOMEN PELVIS WO ORAL OR IV CONTRAST New Marroquin MD [address] [facility] [address] [place], [place] [id number] Phone: tel: fax: [facility] [address] [place] [address] Phone: tel: Referral ID Status Reason Start Date Expiration Date V isits Requested Visits Authorized [id number] Pending Review 01/01/2025 01/01/2026 1 1 Encounter Details Date Type Department Care Team (Latest Contact Info) Description 01/01/2025 2:43 PM EDT - 01/01/2025 11:59 PM EDT Hospital Encounter [facility] [address] [place] [address] New Marroquin MD [address] [facility] [address] [place] [address] Kidney stones Discharge Disposition: Home or Self Care Social History Tobacco Use Types Packs/Day Years Used Date Smoking Tobacco: Never Passive Smoke Exposure: Never Smokeless Tobacco: Never Alcohol Use Standard Drinks/Week Comments Not Currently 0 (1 standard drink = 0.6 oz pur e alcohol) [facility] Utilities Answer Date Recorded In the past 12 months has [employer] electric, gas, oil, or water company threatened to shut off services in your home? No 07/01/2023 Overall Financial Resource Strain (CARDIA) Answe r Date Recorded How hard is it for you to pa y for the very basics like food, housing, medical care, and heating? Not very hard 07/01/2023 PHQ-2 Answer Date Recorded PHQ-2 Total Score 0 09/01/2024 [facility] Occup[facility] ional Health - Occupational Stress [...] money to get more. Never true 07/01/2023 [facility] IP Transportation Answer D ate Recorded In [...] EST Office Visit [facility] [address] [facility] [address] [place], [place] [id number] Jessica Leach, DEBBIE [address] [place] [address] documented as of this encounter Goals Goal Patient Goal Type Associated Problems Recent Progress Patient-Stated? Author Blood Pressure < 140/90 Blood Pressure 122/84(2024 11:08 AM EDT) No Gisselle Del Cid CCMA Maintain a healthy diet, exercise regularly and maintain an ideal body weight General No Sol House RMA documented as of this encounter Procedures Procedure Name Priority Date/Time Associated Diagnosis Comments CT ABDOMEN PELVIS WO ORAL OR IV CONTRAST STAT 01/01/2025 2:47 PM EDT Kidney stones documented in this encounter [...] CONTRAST 01/01/2025 2:47 PM HISTORY: N20.0-Calculus of [id number]-CM PROCEDURE: CT abdomen pelvis noncontrast. FINDINGS: Lung [...] CONTRAST 01/01/2025 2:47 PM HISTORY: N20.0-Calculus of [id number]-CM PROCEDURE: CT abdomen pelvis noncontrast. FINDINGS: Lung [...] MD IMG CT ORDERABLES Final R esult documented in this encounter Visit Diagnoses Diagnosis Kidney stones Calculus of kidney documented in this encounter Care Teams Batch Heat Treat Operator Relationship Specialty Start Date End Date Shameka Reese MD [address] [place] [address] PCP - General Family Medicine 05/19/16 documented as of this encounter
[2025-01-02 09:18] VITALS: BP 116/80; PULSE 95; O2SAT 100
[2025-01-02 09:20] VITALS: BP 116/80; PULSE 93; RESP 16; TEMP 37.1; O2SAT 100; BMI 43.4
--- NOTE | 2025-01-02 09:28 | CT_ITS ---
FINAL REPORT TECHNIQUE: Axial images through the abdomen and pelvis were performed without contrast.This study was performed with techniques to keep radiation doses as low as reasonably achievable, (ALARA). Individualized dose reduction techniques using automated exposure control or adjustment of mA and/or kV according to the patient's size were employed. CLINICAL HISTORY: Right kidney stones, fever COMPARISON: 12/19/2024 FINDINGS: ABDOMEN: The lung bases are clear. The heart size is normal. Limited images of the liver are unremarkable. Gallbladder is present. The spleen is enlarged. No adrenal mass is identified. The aorta is normal in caliber. There is no significant free fluid or adenopathy. There is moderate right hydronephrosis, worse from prior exam related to passage of previously seen right calyceal stone into the proximal right ureter. Stone measures up to 7 mm. There are also nonobstructing left renal stones. There are postoperative changes of gastric sleeve. PELVIS: The appendix is normal. Uterus and ovaries are unremarkable. No distal ureteral stone is seen. The urinary bladder is unremarkable. There is no significant free fluid or adenopathy. IMPRESSION: High-grade right upper urinary tract obstruction, worse from prior exam, with new obstructing stone in the proximal right ureter. Reviewed, Interpreted and Dictated by Oral Pal MD Transcribed by Lauren Coronado Authenticated and [facility]
[2025-01-02 09:29] LABS: Microscopic, Urine URINE MICROSCOPIC (MICROSCOPIC)
--- NOTE | 2025-01-02 09:29 | ED_ITS ---
Discharge Plan Disposition Patient Disposition: Xfer Other Prescriptions Prescriptions: No Action sulfamethoxazole-trimethoprim [Bactrim DS] 800-160 mg tablet 1 tab PO BID 10 Days Qty: 20 0RF Referrals Follow up/Referrals: Shameka Reese [Primary Care Provider, Medical] - See instructions Clinical Impressions Clinical Impression: Pyelonephritis, Ureterolithiasis Instructions Patient Instructions: DI for Urinary Tract Infection (UTI), DI for Urinary Tract Infection in Children Print Language Print Language: Georgian Discharge ED Provider: Real Bacon General Adult HPI General Chief complaint: Urogenital-Female Stated complaint: Diagnosed Kidney Stones per Dr. Yepez Time Seen by Provider: 01/02/25 09:18 Mode of Arrival: Ambulatory Source of Information: Patient Description of Symptoms (Recalled from ER Triage Doc. by RN): patient states she was seen yesterday at her urologists office where she had ct scan and they found kidney stone, she has since had increase pain in right flank with nausea vomiting and fevers. she took a percocet and tylenol around 6am. History of Present Illness HPI narrative: Dayron Will is a 29F with a history of gastric sleeve surgery, , kidney stones who presents to the emergency department for complaints of fever, right flank/abdominal pain, nausea and vomiting as well as hematuria. Patient states that she was diagnosed with an 8 mm kidney stone earlier this month that she believes is passed. She does report that she had a CT scan yesterday that showed a small 2 mm right kidney stone and a 6 mm kidney stone that appears to have migrated. She states that her urologist, Dr. Cunningham, once her infection to be completely gone before going into remove the stones. She states that she finished Bactrim over the last day or 2. She states that last night she developed a fever 102 as well as nausea and vomiting. She does report continued hematuria and right-sided abdominal pain. She took oxycodone at 2 AM as well as Tylenol this morning. She states that she cannot take NSAIDs secondary to her gastric sleeve surgery. Related Data Previous Rx's ?Medication ?Instructions ?Recorded sulfamethoxazole 800 1 tab PO BID 10 days #20 tab s 12/19/24 mg-trimethoprim 160 mg tablet (Bactrim DS) Allergies Allergy/AdvReac Type Severity Reaction Status Date / Time cefixime (From Suprax) Allergy Hives Verified 12/19/24 10:16 terbutaline (From Brethine) Allergy Hives Verified 12/19/24 10:16 NSAIDS (Non-Steroidal AdvReac Other Verified 12/19/24 10:17 Anti-Inflamma PFSH [facility] Disclaimer: The information contained in this section may have been updated after the patient was seen, as this information can be updated by other users. Social History (Updated 12/19/24 @ 13:39 by Ainsley Vieira MD) Smoking Status: Never smoker alcohol intake: never current occupational status: other Travel in the last 8 weeks?: None Have you lived/traveled outside US in past 30 days?: No Contact w/someone who lives/traveled outside US past 30 days?: No Exposure to someone with infectious disease in past 14 days?: No Do you have a fever (greater than 100.4 F or 38 C)?: No Have you tested positive for COVID-19?: No Exposed to someone with COVID-19 in past 14 days?: No Do you have a sore throat?: No Do you have a cough?: No Do you have any weakness?: No Do you have any diarrhea?: No Are you experiencing any unusual bleeding?: No Do you have any muscle aches/pain?: No Do you have any abdominal pain?: No Are you experiencing loss of taste or smell?: No ROS Obtained: Yes Systems reviewed as appropriate & no additional complaints except as documented Physical Exam General General appearance: alert and in no apparent distress Comment: appears uncomfortable, actively vomiting Head Head exam: atraumatic Eye Eye exam: Present normal appearance ENT ENT exam: Present normal external ear exam Neck Neck exam: Present full ROM Chest Chest inspection: Present symmetric chest wall rise Respiratory Respiratory exam: Present normal lung sounds bilaterally; Absent respiratory distress, wheezes or stridor Cardiovascular Cardiovascular exam: Present regular rate and normal rhythm Abdominal Exam Abdominal exam: Present soft, tenderness (RUQ and RLQ) and guarding; Absent distention or rigidity Extremities Exam Extremities exam: Present normal inspection Back Exam Back exam: Present normal inspection and CVA tenderness (R); Absent CVA tenderness (L) Neurological Exam Neurological exam: Present alert and oriented X3 Psychiatric Psychiatric exam: Present normal affect Skin Skin exam: Present warm and dry Medical Decision Making Medical Records Screening: Per USPSTF and CDC recommendations, given the prevalence of disease in our region, it is our hospital?s policy to screen for HIV and viral Hepatitis for all patients aged 18 and over and those with ongoing risk factors. Kam Inquiry Pt receiving controlled substance: No Vital Signs: 01/02/25 09:18 01/02/25 09:20 Temperature 98.7 F Temperature Source Oral Pulse Rate 95 H Pulse Rate [Right Radial] 93 H Respiratory Rate 16 Blood Pressure 116/80 Blood Pressure [Right Arm] 116/80 Blood Pressure Mean [Right Arm] 92 Blood Pressure Source [Right Arm] Automatic Cuff Blood Pressure Position [Right Arm] Supine 02 Sat by Pulse Oximetry 100 100 Oxygen Delivery Method Room Air Lab Data Lab Results 01/02/25 09:27: WBC 7.8, RBC 4.51, Hgb 13.5, Hct 41.1, MCV 91.1, MCH 29.9, MCHC 32.8, RDW 12.9, Plt Count 249, MPV 9.4, Neut % (Auto) 80.3 H, Lymph % (Auto) 13.2, [place] % (Auto) 5.4, Eos % (Auto) 0.4, Baso % (Auto) 0.3, Neut # (Auto) 6.2, Lymph # (Auto) 1.0, [place] # (Auto) 0.4, Eos # (Auto) 0.0, Baso # (Auto) 0.0, Sodium 138, Potassium 4.2, Chloride 105, Carbon Dioxide 26, Anion Gap 11.2, BUN 10, Creatinine 0.90, Estimated Creat Clear 62, Estimated GFR 74, Est GFR ( Amer) 89, Glucose 103 H, Calcium 9.2, Total Bilirubin 1.0, AST 25, ALT 19, Alkaline Phosphatase 59, C-Reactive Protein 45.6 H, Total Protein 7.5, Albumin 4.3, Globulin 3.2, Albumin/Globulin Ratio 1.3, Lipase 52, Serum HCG, Qual Negative 01/02/25 09:28: Urine Color Yellow, Urine Appearance Clear, Urine pH 7.5, Ur Specific [place] 1.015, Urine Protein 2+ A, Urine Glucose (UA) Negative, Urine Ketones Negative, Urine Blood 2+ A, Urine Nitrate Positive A, Urine Bilirubin Negative, Urine Urobilinogen 0.2, Ur Leukocyte Esterase 3+ A 01/02/25 09:27 01/02/25 09:27 Orders (Tests/Meds): ED MEDICATIONS Generic Name Dose Route Start Last Admin Trade Name Freq PRN Reason Stop Dose Admin Lactated Ringer's 1,000 mls @ 999 mls/hr 01/02/25 09:29 01/02/25 10:06 Lactated Ringer's 1000 Ml Bag IV 01/02/25 10:29 999 mls/hr .Q1H1M ONE Administration Levofloxacin/Dextrose 750 mg in 150 mls @ 100 mls/hr 01/02/25 10:15 01/02/25 10:25 Levofloxacin 750mg/150ml Premix IV 01/12/25 10:14 100 mls/hr Q24H ADAMA Administration Discontinued Medications Generic Name Dose Route Start Last Admin Trade Name Freq PRN Reason Stop Dose Admin Hydromorphone HCl 0.5 mg 01/02/25 09:28 01/02/25 10:07 Hydromorphone 2mg/Ml Syringe IV 01/02/25 09:29 0.5 mg ONCE ONE Administration Ondansetron HCl 4 mg 01/02/25 09:28 01/02/25 10:06 Ondansetron 4mg/2ml Vial IV 01/02/25 09:29 4 mg ONCE ONE Administration ORDERS Category Date Time Status CT abdomen pelvis wo con Stat Cat Scan 01/02/25 09:28 Taken CBC w/Auto Diff [Complete Blood Count Auto Diff] Stat Lab 01/02/25 09:27 Completed CMP [Comprehensive Metabolic Panel] Stat Lab 01/02/25 09:27 Completed CRP [C-Reactive Protein] Stat Lab 01/02/25 09:27 Completed Lipase Stat Lab 01/02/25 09:27 Completed Serum [HCG Qualitative, Serum] Stat Lab 01/02/25 09:27 Completed UA [Urinalysis and Microscopic] Stat Lab 01/02/25 09:28 Results Blood Culture Stat Micro 01/02/25 09:47 Received Urine Culture Stat Micro 01/02/25 09:28 Received Medical Decision Narrative: Dayron Will is a 29F with a history of gastric sleeve surgery, , kidney stones who presents to the emergency department for complaints of fever, right flank/abdominal pain, nausea and vomiting as well as hematuria. Patient states that she was diagnosed with an 8 mm kidney stone earlier this month that she believes is passed. She does report that she had a CT scan yesterday that showed a small 2 mm right kidney stone and a 6 mm kidney stone that appears to have migrated. She states that her urologist, Dr. Cunningham, once her infection to be completely gone before going into remove the stones. She states that she finished Bactrim over the last day or 2. She states that last night she developed a fever 102 as well as nausea and vomiting. She does report continued hematuria and right-sided abdominal pain. She took oxycodone at 2 AM as well as Tylenol this morning. She states that she cannot take NSAIDs secondary to her gastric sleeve surgery. On arrival, patient is afebrile, hemodynamically stable, in no acute respiratory distress, nontoxic-appearing. She does appear uncomfortable. Physical exam, stated above, reveals a Appearing female in no respiratory distress. She has right-sided CVA tenderness. She has right upper quadrant and right lower quadrant abdominal tenderness without peritonitis or guarding. Abdomen is nondistended. Cardiopulmonary exam is unremarkable. Differential diagnosis includes, but is not limited to: Infected kidney stone, pyelonephritis, ectopic , less likely to represent acute cholecystitis or choledocholithiasis, however patient does have fairly significant right upper quadrant pain. Given patient's recent history, an infected kidney stone is highest on the differential. Will obtain CT abdomen pelvis without contrast as well as CBC, CMP, CRP, lipase, urinalysis, test, blood cultures. patient was treated with 0.5 mg of IV Dilaudid, 4 mg of IV Zofran as well as 1 L lactated ringer. Laboratory and CT imaging were interpreted by me personally. No leukocytosis, electrolytes within normal limits, no CHALO, creatinine is 0.9 today and was 0.7 on the second of this month. Glucose normal at 103. Liver enzymes and bilirubin within normal limits. CRP is elevated at 45.6. Negative test. Urinalysis is grossly infected. 2+ protein, 2+ blood, positive nitrate, 3+ leukocyte esterase. Urine microscopy is pending at this time. Urine micro is pending at this time. CT imaging also interpreted by me personally and showed a 6 to 6.5 mm stone in the proximal right ureter with hydronephrosis and right perinephric fat stranding. Compared to previous CT, there was not near significant hydronephrosis and no stone in the ureter itself. bilateral kidney stones were noted, however no obstructing ureteral stone. This new CT is concerning for an infected ureterolithiasis/pyelonephritis with hydronephrosis. Given these findings, I did discuss with patient need to start her on IV antibiotics. She does note that she is allergic to Rocephin. Will start her on IV levofloxacin 750 mg at this time. Patient states that she has been followed at the [facility] as well and is agreeable to attempt transfer there. Will discuss patient's case with the [facility] transfer center. I spoke with Dr. Nava, [facility] urologist, who graciously agreed to accept the patient to the [facility] emergency department for an infected ureteral stone. Will send the patient via ground EMS for continued IV antibiotics and pain management. Critical Care Critical Care Time Critical Care Time: No
[2025-01-02 09:38] LABS: Bilirubin,Urine Negative (Negative); Color,Urine YELLOW (Yellow); Glucose,Urine (UA) Negative (Negative); Ketones,Urine Negative (Negative); Leukocyte Esterase,Urine 3+ (Negative); PH,Urine 7.5 (5.0-8.5); Protein,Urine 2+ (Negative); Specific Gravity, Urine 1.015 (1.005-1.030); Urobilinogen,Urine 0.2 EU/dl (0.2)
[2025-01-02 09:46] LABS: Alanine Aminotransferase 19 U/L (12-78); Albumin Level 4.3 g/dl (3.5-5.0); Albumin/Globulin Ratio 1.3 (1.1-1.8); Alkaline Phosphatase 59 U/L (38-126); Anion Gap 11.2 mEq/L (5-15); Aspartate Amino Transferase 25 U/L (14-36); Bilirubin,Total 1.0 mg/dl (0.2-1.3); Blood Urea Nitrogen 10 mg/dl (7-17); Calcium 9.2 mg/dl (8.4-10.2); Carbon Dioxide 26 mmol/L (22.0-30.0); Chloride 105 mmol/L (98-107); Creatinine Clearance Estimated 62 mL/min (50-200); Creatinine,Serum 0.90 mg/dl (0.52-1.04); Estimated Glomerular Filt Rate 74 ml/min (>60); GFR (African American) 89 ML/MIN (>60); Globulin 3.2 g/dL (1.3-3.2); Glucose 103 mg/dl (74-100); Potassium 4.2 mmoL/L (3.5-5.1); Sodium 138 mmol/L (136-145); Total Protein,Serum 7.5 g/dl (6.3-8.2)
[2025-01-02 09:47] LABS: Lipase 52 U/L (23-300)
[2025-01-02 09:51] LABS: C-Reactive Protein 45.6 mg/L (0-4)
[2025-01-02 09:52] LABS: Hematocrit 41.1 % (37.0-47.0); Hemoglobin 13.5 g/dL (12.2-16.2); Immature Granulocytes % 0.4 %; Mean Corpuscular HGB Conc 32.8 g/dL (31.8-35.4); Mean Corpuscular Hemoglobin 29.9 pg (27.0-31.2); Mean Corpuscular Volume 91.1 fl (81-99); Nucleated Red Blood Cells % 0 %; Platelet Count 249 K/mm3 (142-424); Red Blood Count 4.51 M/mm3 (4.20-5.40); Red Cell Distribution Width-SD 42.1 fL; White Blood Count 7.8 K/mm3 (4.8-10.8)
--- OUTSIDE RECORDS SUMMARY | 2025-01-02 09:54 | XMS_ITS | Encounter Summary ---
Author Organization [facility] Address [address] [place] [address] Care Team Providers Care Equalizing Saw Operator Name Role Phone Shameka Reese MD Primary Care Provider [phone] Encounter Details Date Type Department Care Team (Late st Contact Info) Description 12/05/2024 Orders Only [facility] [place] [address] [place] [address] Neela Serrano RMA IIH (idiopathic intracranial hypertension) (Primary Dx) Social History Tobacco Use Types Packs/Day Years Used Date Smoking Tobacco: Never Passive Smoke Exposure: Never Smokeless Tobacco: Never Alcohol Use Standard Drinks/Week Comments Not Currently 0 (1 standard drink = 0.6 oz pur e alcohol) [facility] Utilities Answer Date Recorded In the past 12 months has [employer] electric, gas, oil, or water [employer] threatened to shut off services in your home? No 07/01/2023 Overall Financial Resource Strain (CARDIA) Answe r Date Recorded How hard is it for you to pa y for the very basics like food, housing, medical care, and heating? Not very hard 07/01/2023 PHQ-2 Answer Date Recorded PHQ-2 Total Score 0 09/01/2024 [facility] [place] of Occupat ional Health - Occupational Stress [...] money to get more. Never true 07/01/2023 [facility] IP Transportation Answer D ate Recorded In [...] Author No 06/19/2024 8:05 AM J Carlos Mendze RMA * Does this person have serious [...] EST Office Visit [facility] [address] [facility] [address] [place] [address] Jessica Leach, RUG DRYING MACHINE OPERATOR [address] [place] [address] documented as of this encounter Goals Goal Patient Goal Type Associated Problems Recent Progress Patient-Stated? Author Blood Pressure < 140/90 Blood Pressure 122/84(2024 11:08 AM EDT) No Gisselle Del Cid CCMA Maintain a healthy diet, exercise regularly and maintain an ideal body weight General No Sol House RMA documented as of this encounter Results * PT / INR (12/27/2024 7:27 AM EDT) PT 11.5 10.5 - 13.6 second(s) 12/27/2024 7:51 AM EDT [facility] INR 1.00 0.91 - 1.18 (ratio) 12/27/2024 7:51 AM EDT [facility] Comment: Level of Therapy Indications Target INR Range Standard Dose Treatment and prophylaxis of venous 2.0 - 3.0 thrombosis, pulmonary embolism High Dose High risk patients with mechanical 2.5 - 3.5 heart valves Blood VENOUS BLOOD / Unknown Venipuncture / Unknown 12/27/2024 7:27 AM EDT 12/27/2024 7:27 AM EDT us Marylu Gates PA-C HEMATOLOGY ORDERABLES Fi nal Result [facility] [address] [facility] , [place] [address] * CBC (12/27/2024 7:27 AM [...] nal Result [facility] [address] [facility] , [place] [address] documented in this encounter Visit Diagnoses Diagnosis IIH (idiopathic intracranial hypertension)- Primary Benign intracranial hypertension documented in this encounter Care Teams Equalizing Saw Operator Relationship Specialty Start Date End Date Shameka Reese MD [address] [place] [address] PCP - General Family Medicine 05/19/16 documented as of this encounter
--- OUTSIDE RECORDS SUMMARY | 2025-01-02 09:54 | XMS_ITS | Encounter Summary ---
Author Organization [place] [address] Care Team Providers Care Staff Genetic Counselor Name Role Phone Shameka Reese MD Primary Care Provider [phone] Reason for Visit * Reason Comments Pharmacy Migraine Medication Management Ubrelvy Encounter Details Date Type Department Care Team (Latest Contact Info) Description 12/05/2024 Specialty Pharmacy [facility] [address] [id number] Yannick Mora, LollyD Pharmacy Migraine Medication Management (Ubrelvy ) Social History Tobacco Use Types Packs/Day Years Used Date Smoking Tobacco: Never Passive Smoke Exposure: Never Smokeless Tobacco: Never Alcohol Use Standard Drinks/Week Comments Not Currently 0 (1 standard drink = 0.6 oz pur e alcohol) [facility] Utilities Answer Date Recorded In the past 12 months has [employer], gas, oil, or water [employer] threatened to shut off services in your home? No 07/01/2023 Overall Financial Resource Strain (CARDIA) Answe r Date Recorded How hard is it for you to pa y for the very basics like food, housing, medical care, and heating? Not very hard 07/01/2023 PHQ-2 Answer Date Recorded PHQ-2 Total Score 0 09/01/2024 [facility] [place] of Occupat ional Health - Occupational Stress [...] to get more. Never true 07/01/2023 [facility] IP Transportation Answer D ate Recorded [...] 1:26 PM EDT Nazia Sutton RN * [place] Suicide Severity Rating Scale (Q shift for [...] [facility] Prescription received for Ubrelvy (100mg). PA status unknown at this time due to being unable to find patient's insurance. Will contact patient to determine insurance. * Vilma Farnsworth CPhT - 12/05/2024 9:13 AM EDT [facility] Prior Authorization Submitted PA for Ubrelvy to [employer] insurance via covermymeds ([place] [id number]). Will follow up on 12/07. * Tala Bernstein CPhT - 12/05/2024 9:13 AM EDT [facility] Called insurance to check status of Ubrelvy PA. Insurance: [employer] ([phone]) Patient zip code: [id number] Provider name: Jessica Leach Provider Address: [address] [place] [address] Per rep, PA is handled by another program. The phone number for the program that handles this PA [phone]. Called the Connect team ([phone]) to check status. The PA was canceled due to their being a program for the member to acquire the medication without the need for a PA. Member will need to call [phone] to enroll. Called patient to advise her of the program and let her know that she will need to reach out to insurance to discuss further information. No answer, left voicemail. * Mary Coley CPhT - 12/05/2024 9:13 AM EDT [facility] The PA was canceled due to their being a program for the member to acquire the medication without the need for a PA. Member will need to call [phone] to enroll. Called patient to advise her of the program and let her know that she will need to reach out to insurance to discuss further information. No answer, left voicemail to call [phone], option 4. * Mary Coley CPhT - 12/05/2024 9:13 AM EDT [facility] Prior Authorization The PA was canceled due to their being a program for the member to acquire the medication without the need for a PA. Member will need to call [phone] to enroll. Called patient to advise her of the program and let her know that she will need to reach out to insurance to discuss further information. No answer, left voicemail to call [phone], option 4. * Neli Scott CPhT - 12/05/2024 9:13 AM EDT [facility] Sent myhcart message to see If she was able to get help with her Ubrelvy * Ashley Manning CPhT - 12/05/2024 9:13 AM EDT [facility] Since patient read mychart about contacting insurance about her ubrelvy, will give her more time torespond before reaching out again to see if she's reached out to them yet. * Neli Scott CPhT - 12/05/2024 9:13 AM EDT [facility] Sent MyChart message. * Raffy Alvarado CPhT - 12/05/2024 9:13 AM EDT [facility] Patient responded through my chart stated she has not reach out to the insurance. I message her back with more information and how to reach the insurance company to sign up for the program. * Jocelyne Baires CPhT - 12/05/2024 9:13 AM EDT [facility] Sent patient a mychart to follow up on if she has had a chance to reach out to her insurance company and enroll in the program that will help her get her Ubrelvy. documented in this encounter Plan of Treatment Upcoming Encounters Date Type Department Care Team (Late st Contact Info) Description 03/09/2025 8:00 AM EST Office Visit [facility] [address] [facility] [address] [place] [address] Jessica Leach, IMMERSION METAL CLEANER [address] [place] [address] documented as of this encounter Goals Goal Patient Goal Type Associated Problems Recent Progress Patient-Stated? Author Blood Pressure < 140/90 Blood Pressure 122/84(2024 11:08 AM EDT) Gisselle Henderson CCMA Maintain a healthy diet, exercise regularly and maintain an ideal body weight General No Sol House RMA documented as of this encounter Visit Diagnoses Not on filedocumented in this encounter Care Teams Staff Genetic Counselor Relationship Specialty Start Date End Date Shameka Reese MD [address] [place] [address] PCP - General Family Medicine 05/19/16 documented as of this encounter
--- OUTSIDE RECORDS SUMMARY | 2025-01-02 09:54 | XMS_ITS | Encounter Summary ---
Author Organization [place] [address] Care Team Providers Care Homemaker Companion Name Role Phone Shameka Reese MD Primary Care Provider [phone] Encounter Details Date Type Department Care Team (Late st Contact Info) Description 01/01/2025 Results Follow-Up [facility] [address] [place] [address] [place] [id number] [place] Marroquin MD [address] [facility] [address] [place] [address] CT ABDOMEN PELVIS WO ORAL OR IV CONTRAST Social History Tobacco Use Types Packs/Day Years Used Date Smoking Tobacco: Never Passive Smoke Exposure: Never Smokeless Tobacco: Never Alcohol Use Standard Drinks/Week Comments Not Currently 0 (1 standard drink = 0.6 oz pur e alcohol) [facility] Utilities Answer Date Recorded In the past 12 months has [employer] electric, gas, oil, or water company threatened to shut off services in your home? No 07/01/2023 Overall Financial Resource Strain (CARDIA) Answe r Date Recorded How hard is it for you to pa y for the very basics like food, housing, medical care, and heating? Not very hard 07/01/2023 PHQ-2 Answer Date Recorded PHQ-2 Total Score 0 09/01/2024 [place] of Occupat ional Health - Occupational Stress [...] to get more. Never true 07/01/2023 [facility] IP Transportation Answer D ate Recorded [...] EST Office Visit [facility] [address] [facility] [address] [place], [place] [id number] Jessica Leach, AUTOMOBILE MECHANIC HELPER [address] [facility] [address] [place] [address] documented as of this encounter Goals Goal Patient Goal Type Associated Problems Recent Progress Patient-Stated? Author Blood Pressure < 140/90 Blood Pressure 122/84(2024 11:08 AM EDT) No Gisselle Del Cid CCMA Maintain a healthy diet, exercise regularly and maintain an ideal body weight General No Sol House RMA documented as of this encounter Visit Diagnoses Not on filedocumented in this encounter Care Teams Homemaker Companion Relationship Specialty Start Date End Date Shameka Reese MD [address] [place] [address] PCP - General Family Medicine 05/19/16 documented as of this encounter
--- OUTSIDE RECORDS SUMMARY | 2025-01-02 09:54 | XMS_ITS | Encounter Summary ---
Author Organization [facility] Address [address] [place] [address] Care Team Providers Care Sound Controller Name Role Phone Shameka Reese MD Primary Care Provider [phone] Reason for Visit * Reason Onset Date Comments Procedure 12/05/2024 Lumbar puncture Encounter Details Date Type Department Care Team (Late st Contact Info) Description 12/05/2024 Telephone [facility] [place] [address] [place] [address] Neela Serrano RMA Procedure (Lumbar puncture) Social History Tobacco Use Types Packs/Day Years Used Date Smoking Tobacco: Never Passive Smoke Exposure: Never Smokeless Tobacco: Never Alcohol Use Standard Drinks/Week Comments Not Currently 0 (1 standard drink = 0.6 oz pur e alcohol) [facility] Utilities Answer Date Recorded In the past 12 months has [employer] electric, gas, oil, or water company threatened to shut off services in your home? No 07/01/2023 Overall Financial Resource Strain (CARDIA) Answe r Date Recorded How hard is it for you to pa y for the very basics like food, housing, medical care, and heating? Not very hard 07/01/2023 PHQ-2 Answer Date Recorded PHQ-2 Total Score 0 09/01/2024 [facility] [place] of Occupat ional Health - Occupational Stress [...] money to get more. Never true 07/01/2023 [facility] IP Transportation Answer D [...] encounter Miscellaneous Notes * Telephone Encounter - MaggiePatriciaNeelageovanny OscarKATJA - 12/05/2024 2:14 PM EDT Lumbar Puncture Instructions Spoke with patient Date: Wednesday11/26/24 Location: [facility]: outpatient 3a Arrival time: 7:30 Procedure time:8:30 Can you lay flat on your stomach: Yes You will be at the hospital for several hours. You must have a canal driver. No driving for 24 hours after [...] EST Office Visit [facility] [address] [facility] [address] [place] [address] Jessica Leach, MEDICAL TERMINOLOGIST [address] [place] [address] documented as of this encounter [...] on filedocumented in this encounter Care Teams Sound Controller Relationship Specialty Start Date End Date Shameka Reese MD [address] [place] [address] PCP - General Family Medicine 05/19/16 documented as of this encounter
--- OUTSIDE RECORDS SUMMARY | 2025-01-02 09:54 | XMS_ITS | Encounter Summary ---
Author Organization [place] [address] Care Team Providers Care Campus Supervisor Name Role Phone Shameka Reese MD Primary Care Provider [phone] Reason for Referral * MRI/CAT Scan (Routine) - Pending Review Specialty Diagnoses / Procedures Referred By Contrich tanner Referred To Contact Radiology Procedures CT ABDOMEN PELVIS W WO CONTRAST [facility] [address] [place] [address] Phone: tel: fax: Referral ID Status Reason Start Date Expiration Date V isits Requested Visits Authorized [id number] Pending Review 12/19/2024 12/19/2025 1 1 Encounter Details Date Type Department Care Team (Late st Contact Info) Description 12/19/2024 Abstract [facility] [address] [place] [address] Jim Bain APRN [address] [place], [place] [id number] Social History Tobacco Use Types Packs/Day Years Used Date Smoking Tobacco: Never Passive Smoke Exposure: Never Smokeless Tobacco: Never Alcohol Use Standard Drinks/Week Comments Not Currently 0 (1 standard drink = 0.6 oz pur e alcohol) [facility] Utilities Answer Date Recorded In [...] Date Recorded PHQ-2 Total Score 0 09/01/2024 [facility] of Occupat ional Health - Occupational [...] money to get more. Never true 07/01/2023 [facility] IP Transportation Answer D ate Recorded In [...] of Assessment Author No 06/19/2024 8:05 AM EST J Carlos Babcock RMA * Does this person have difficulty dressing or bathing? Answer Date of Assessment Author No 06/19/2024 8:05 AM EST J Carlos Babcock RMA * Because of a physical, mental or emotional condition, does this person have difficulty doing errands alone such as visiting a doctor's office or shopping? Answer Date of Assessment Author No 06/19/2024 8:05 AM EST J Carlos Babcock RMA documented as of this encounter Mental Status * Because of a physical, mental or emotional condition, does this person have serious difficulty concentrating, remembering or making decisions? Answer Entry Date Author No 06/19/2024 8:05 AM EST J Carlos Babcock RMA documented in this encounter Progress Notes * BabcockJ Carlos mclaughlin KATJA - 12/19/2024 3:23 PM EDT Referral placed for Urology, per Dr. Reese. documented in this encounter Plan of Treatment Upcoming Encounters Date Type Department Care Team (Late st Contact Info) Description 03/09/2025 8:00 AM EST Office Visit [facility] [address] [facility] [address] [place] [address] Jessica Leach, DEBBIE [address] [place] [address] documented as of this encounter Goals Goal [...] Date/Time Associated Diagnosis Comments CT ABDOMEN PELVIS W WO CONTRAST Routine 12/19/2024 documented in this encounter Results * CT ABDOMEN PELVIS W WO CONTRAST (12/19/2024) Anatomical Region Laterality Modality Abdomen, Chest, Pelvis, Hip Othe r 12/19/2024 Impressions 12/19/2024 Bilateral kidney stones measuring up to 8 mm. Mild right hydronephrosis with stranding along the right ureter, probably due to recently passed kidney stone. us Historical Provider IMG CT ORDERABLES Final Resu lt documented in this encounter Visit Diagnoses Not on filedocumented in this encounter Care Teams Campus Supervisor Relationship Specialty Start Date End Date Shameka Reese MD [address] [place] [address] PCP - General Family Medicine 05/19/16 documented as of this encounter
--- OUTSIDE RECORDS SUMMARY | 2025-01-02 09:54 | XMS_ITS | Encounter Summary ---
Author Organization [place] [address] Care Team Providers Care Senior Architect/Design Manager Name Role Phone Shameka Reese MD Primary Care Provider [phone] Reason for Visit * Reason Onset Date Comments Results 12/21/2024 labs Encounter Details Date Type Department Care Team (Late st Contact Info) Description 12/21/2024 Telephone [facility] [address] [place] [address] Shamkea Reese MD [address] [place], [place] [id number] Results (labs) Social History Tobacco Use Types Packs/Day Years Used Date Smoking Tobacco: Never Passive Smoke Exposure: Never Smokeless Tobacco: Never Alcohol Use Standard Drinks/Week Comments Not Currently 0 (1 standard drink = 0.6 oz pur e alcohol) [facility] Utilities Answer Date Recorded In the past 12 months has [employer] electric, gas, oil, or water company threatened to shut off services in your home? No 07/01/2023 Overall Financial Resource Strain (CARDIA) Answe r Date Recorded How hard is it for you to pa y for the very basics like food, housing, medical care, and heating? Not very hard 07/01/2023 PHQ-2 Answer Date Recorded PHQ-2 Total Score 0 09/01/2024 [place] of Occupat ional Health - Occupational Stress [...] money to get more. Never true 07/01/2023 [facility] IP Transportation Answer D ate Recorded [...] Date Author No 06/19/2024 8:05 AM ANNMARIE BabcockJ Carlos RMA documented in this encounter Miscellaneous Notes * Telephone Encounter - Birgit Zaidi - 12/21/2024 11:46 AM EDT Select the most appropriate reason for this telephone message: Test Result(s) Purpose of call: Patient seeking results Type of test: Lab Date of test: 12/19/24 Who ordered the test: Ed pcp [facility] Method of Communication: Phone Call Additional Information: N/A documented in this encounter Plan of Treatment Upcoming Encounters Date Type Department Care Team (Late st Contact Info) Description 03/09/2025 8:00 AM EST Office Visit [facility] [address] [facility] [address] [place] [address] Jessica Leach, POWDER WORKER [address] [place] [address] documented as of this encounter Goals Goal Patient Goal Type Associated Problems Recent Progress Patient-Stated? Author Blood Pressure < 140/90 Blood Pressure 122/84(2024 11:08 AM EDT) Gisselle Henderson CCMA Maintain a healthy diet, exercise regularly and maintain an ideal body weight General No Sol House RMA documented as of this encounter Visit Diagnoses Not on filedocumented in this encounter Care Teams Senior Architect/Design Manager Relationship Specialty Start Date End Date Shameka Reese MD [address] [place] [address] PCP - General Family Medicine 05/19/16 documented as of this encounter
--- OUTSIDE RECORDS SUMMARY | 2025-01-02 09:54 | XMS_ITS | Encounter Summary ---
Author Organization [place] [address] Care Team Providers Care Horses Or Mules Teamster Name Role Phone Shameka Reese MD Primary Care Provider [phone] Reason for Visit * Reason Comments Pharmacy Migraine Medication Management Qulipta Encounter Details Date Type Department Care Team (Latest Contact Info) Description 12/05/2024 Specialty Pharmacy [facility] [address] [id number] Yannick Mora, LollyD Pharmacy Migraine Medication Management (Qulipta) Social History Tobacco Use Types Packs/Day Years Used Date Smoking Tobacco: Never Passive Smoke Exposure: Never Smokeless Tobacco: Never Alcohol Use Standard Drinks/Week Comments Not Currently 0 (1 standard drink = 0.6 oz pur e alcohol) [facility] Utilities Answer Date Recorded In the past 12 months has [employer], gas, oil, or water eventuosity threatened to shut off services in your home? No 07/01/2023 Overall Financial Resource Strain (CARDIA) Answe r Date Recorded How hard is it for you to pa y for the very basics like food, housing, medical care, and heating? Not very hard 07/01/2023 PHQ-2 Answer Date Recorded PHQ-2 Total Score 0 09/01/2024 [facility] [place] of Occupat ional Health - Occupational Stress [...] money to get more. Never true 07/01/2023 [facility] IP Transportation Answer D ate [...] Mora PharmD - 12/05/2024 9:13 AM EDT [facility] Prescription received for Qulipta (60mg). PA status unknown at this time due to being unable to find patient's insurance. Will contact patient to determine insurance. * Yannick Mora PharmD - 12/05/2024 9:13 AM EDT [facility] - Migraine Clinical Review Marleni Padgett [...] Farnsworth CPhT - 12/05/2024 9:13 AM EDT [facility] Prior Authorization Submitted PA for Qulipta to [employer] insurance via [employer] ([place] [id number]). Will follow up on 12/07. * Jocelyne Baires CPhT - 12/05/2024 9:13 AM EDT Images from the original note were not included. [facility] Prior Authorization Determination Received notice of PA denial for Qulipta. PA was denied due to: Non referral patient. Will route to Specialty [facility] to determine next steps. Appeal letter pended. Is peer to peer an option? No. Patient needs to fill out Member Appeal Request form prior to submitting appeal. (sent to patient) * Martita Dumont [facility] - 12/05/2024 9:13 AM EDT Appeal written and sent. * Neli Scott CPhT - 12/05/2024 9:13 AM EDT Images from the original note were not included. [facility] Prior Authorization Determination Received notice of PA approval for Qulipta. PA approved from 12/08/2024 to 12/08/2025. Patient is able to fill at [facility]. Copay is $419.48. Note says to direct patient to [facility] [phone] Patient has commercial insurance and may qualify for copay card. No answer, left voicemail to call [phone], option 4. will route to [facility] to transfer to [facility] so medication will cheaper for patient hopefully by going to them. * Carla Rosado [facility] - 12/05/2024 9:13 AM EDT [facility] Prescription for Qulipta was transferred to [facility] due to patient preference. Will contact patient for one time follow-up to confirm receipt of medication from outside pharmacy. [employer] is just a PBM and has no pharmacy attached to it. [facility] is a preferred pharmacy and they patient is already established there. Carla Rosado RPH Specialty Pharmacist documented in this encounter Miscellaneous Notes * Addendum Note - Carla Rosado RPH - 12/05/2024 9:13 AM EDTAddended by: CARLA ROSADO on: 12/08/2024 02:34 PM Modules accepted: Orders documented in this encounter Plan of Treatment Upcoming Encounters Date Type Department Care Team (Late st Contact Info) Description 03/09/2025 8:00 AM EST Office Visit [facility] [address] [facility] [address] [place] [address] Jessica Leach, AIR POLLUTION INSPECTOR [address] [place] [address] documented as of this encounter Goals Goal Patient Goal Type Associated Problems Recent Progress Patient-Stated? Author Blood Pressure < 140/90 Blood Pressure 122/84(2024 11:08 AM EDT) No Gisselle Del Cid, JESSA Maintain [...] documented as of this encounter Care Teams Horses Or Mules Teamster Relationship Specialty Start Date End Date Shameka Reese MD [address] [place] [address] PCP - General Family Medicine 05/19/16 documented as of this encounter
--- OUTSIDE RECORDS SUMMARY | 2025-01-02 09:54 | XMS_ITS | Encounter Summary ---
Author Organization [place] [address] Care Team Providers Care Material Handling Warehouse Supervisor Name Role Phone Shameka Reese MD Primary Care Provider [phone] Reason for Visit * Reason Onset Date Comments Other 12/21/2024 Lumbar Puncture Encounter Details Date Type Department Care Team (Late st Contact Info) Description 12/21/2024 Telephone [facility] [address] [place] [address] Jessica Leach, CONTACT CENTER REPRESENTATIVE [address] [address] Other (Lumbar Puncture) Social History Tobacco Use Types Packs/Day Years Used Date Smoking Tobacco: Never Passive Smoke Exposure: Never Smokeless Tobacco: Never Alcohol Use Standard Drinks/Week Comments Not Currently 0 (1 standard drink = 0.6 oz pur e alcohol) [facility] Utilities Answer Date Recorded In the past 12 months has [employer] electric, gas, oil, or water company threatened to shut off services in your home? No 07/01/2023 Overall Financial Resource Strain (CARDIA) Answe r Date Recorded How hard is it for you to pa y for the very basics like food, housing, medical care, and heating? Not very hard 07/01/2023 PHQ-2 Answer Date Recorded PHQ-2 Total Score 0 09/01/2024 [facility] - Occupational Stress Questionnaire Answer Date Recorded [...] money to get more. Never true 07/01/2023 [facility] IP Transportation Answer D ate [...] encounter Miscellaneous Notes * Telephone Encounter - Neli Angel MA - 12/21/2024 1:42 PM EDT Pt informed. * Telephone Encounter - Jessica Leach APRN - 12/21/2024 1:23 PM EDT I would ask her to contact the radiology department to see what they recommend * Telephone Encounter - Neli Angel MA - 12/21/2024 12:27 PM EDT Pt called in stating she has/had a kidney infection while she was passing a kidney stone and is currently taking an antibiotic. She is scheduled for a lumbar puncture on 12.27.24 and will be on her antibiotic until 12.29.24. She is wanting to make sure it is okay to still proceed with the lumbar puncture. documented in this encounter Plan of Treatment Upcoming Encounters Date Type Department Care Team (Late st Contact Info) Description 03/09/2025 8:00 AM EST Office Visit [facility] [address] [facility] [address] [place] [address] Jessica Leach APRN [address] [place] [address] documented as of this encounter Goals Goal Patient Goal Type Associated Problems Recent Progress Patient-Stated? Author Blood Pressure < 140/90 Blood Pressure 122/84(2024 11:08 AM EDT) Gisselle Henderson, JESSA Maintain a healthy diet, exercise regularly and maintain an ideal body weight General Sol Handy, KATJA documented as of this encounter Visit Diagnoses Not on filedocumented in this encounter Care Teams Material Handling Warehouse Supervisor Relationship Specialty Start Date End Date Shameka Reese MD [address] [place] [address] PCP - General Family Medicine 05/19/16 documented as of this encounter
--- OUTSIDE RECORDS SUMMARY | 2025-01-02 09:54 | XMS_ITS | Encounter Summary ---
Author Organization [place] [address] Care Team Providers Care Nascar Driver Name Role Phone Shameka Reese MD Primary Care Provider [phone] Encounter Details Date Type Department Care Team (Late st Contact Info) Description 12/01/2024 Results Follow-Up [facility] [address] [place] [id number] Jim Bain, DEBBIE [address] [place] [address] CBC, COMPREHENSIVE METABOLIC PANEL, HEMOGLOBIN A1C, Additional followed-up results: 2 Social History Tobacco Use Types Packs/Day Years Used Date Smoking Tobacco: Never Passive Smoke Exposure: Never Smokeless Tobacco: Never Alcohol Use Standard Drinks/Week Comments Not Currently 0 (1 standard drink = 0.6 oz pur e alcohol) [facility] Utilities Answer Date Recorded In the past [...] Date Recorded PHQ-2 Total Score 0 09/01/2024 [place] [facility] - Occupational Stress Questionnaire Answer Date [...] 07/01/2023 [facility] IP Transportation Answer D ate Recorded [...] EST Office Visit [facility] [address] [facility] [address] [place], [place] [id number] Jessica Leach, COUNTER TOP ASSEMBLER [address] [facility] [address] [place] [address] documented as of this encounter Goals Goal Patient Goal Type Associated Problems Recent Progress Patient-Stated? Author Blood Pressure < 140/90 Blood Pressure 122/84(2024 11:08 AM EDT) No Gisselle Del Cid CCMA Maintain a healthy diet, exercise regularly and maintain an ideal body weight General No Sol House RMA documented as of this encounter Visit Diagnoses Not on filedocumented in this encounter Care Teams Nascar Driver Relationship Specialty Start Date End Date Shameka Reese MD [address] [place] [address] PCP - General Family Medicine 05/19/16 documented as of this encounter
--- OUTSIDE RECORDS SUMMARY | 2025-01-02 09:54 | XMS_ITS | Encounter Summary ---
Author Organization [place] [address] Care Team Providers Care Sales Route Driver Helper Name Role Phone Shaemka Reese MD Primary Care Provider [phone] Reason for Referral * Consultation (Emergency) - Authorization Not Needed Specialty Diagnoses / Procedures Referred By Vineet tanner Referred To Contact Urology Diagnoses Bilateral kidney stones Procedures [place] OFFICE/OUTPATIENT NEW MODERATE MDM 45 MINUTES Jim Bain APRN [address] [place] [address] Phone: tel: fax: [facility] [address] [address] Phone: tel: fax: Referral ID Status Reason Start Date Expiration Date Visits Requested Visits Authorized [id number] Authorization Not Needed Specialty Services Required 12/19/2024 12/19/2025 99 99 Comments Bilateral kidney stones measuring up to 8 mm. Mild right hydronephrosis with stranding along the right ureter, probably due to recently passed kidney stone. Encounter Details Date Type Department Care Team (Late st Contact Info) Description 12/19/2024 Results Follow-Up [facility] [address] [place] [address] J Carlos Babcock RMA CT ABDOMEN PELVIS W WO CONTRAST Social History Tobacco Use Types Packs/Day Years Used Date Smoking Tobacco: Never Passive Smoke Exposure: Never Smokeless Tobacco: Never Alcohol Use Standard Drinks/Week Comments Not Currently 0 (1 standard drink = 0.6 oz pur e alcohol) [facility] Utilities Answer Date Recorded In the [...] Date Recorded PHQ-2 Total Score 0 09/01/2024 [facility] of Occupat ional Health - [...] money to get more. Never true 07/01/2023 [facility] H[facility]N [facility] IP Transportation Answer D ate Recorded In [...] Assessment Author No 06/19/2024 8:05 AM EST Sadiq J CarlosKATJA * Is the person blind or does he/she have serious difficulty seeing even when wearing glasses? Answer Date of Assessment Author No 06/19/2024 8:05 AM EST Sadiq J CarlosKATJA * Does this person have serious difficulty walking or climbing stairs? Answer Date of Assessment Author No 06/19/2024 8:05 AM EST BabcockJ Carlos KATJA * Does this person have difficulty dressing or bathing? Answer Date of Assessment Author No 06/19/2024 8:05 AM EST Sadiq J CarlosKATJA * Because of a physical, mental or emotional condition, does this person have difficulty doing errands alone such as visiting a doctor's office or shopping? Answer Date of Assessment Author No 06/19/2024 8:05 AM EST J Carlos Babcock KATJA documented as of this encounter Mental Status * Because of a physical, mental or emotional condition, does this person have serious difficulty concentrating, remembering or making decisions? Answer Entry Date Author No 06/19/2024 8:05 AM EST J Carlos Babcock KATJA documented in this encounter Miscellaneous Notes * Telephone Encounter - J Carlos Babcock RMA - 12/19/2024 3:28 PM EDT Left message informing Pt of results and recommendations. Instructed to call the office if she has any questions. documented in this encounter Plan of Treatment Upcoming Encounters Date Type Department Care Team (Late st Contact Info) Description 03/09/2025 8:00 AM EST Office Visit [facility] [address] [facility] [address] [place] [address] Jessica Leach, PURSE MAKER [address] [place] [address] Scheduled Referrals Name Type Priority Associated Diagnoses Orde r Schedule AMB REFERRAL TO UROLOGY Outpatient Referral STAT Bilateral kidney stones Ordered: 12/19/2024 documented as of this encounter Goals Goal Patient Goal Type Associated Problems Recent Progress Patient-Stated? Author Blood Pressure < 140/90 Blood Pressure 122/84(2024 11:08 AM EDT) No Gisselle Del Cid CCMA Maintain a healthy diet, exercise regularly and maintain an ideal body weight General No Sol House, Marlyn documented as of this encounter Visit Diagnoses Diagnosis Bilateral kidney stones- Primary Calculus of kidney documented in this encounter Care Teams Sales Route Driver Helper Relationship Specialty Start Date End Date Shameka Reese MD [address] [place] [address] PCP - General Family Medicine 05/19/16 documented as of this encounter
--- OUTSIDE RECORDS SUMMARY | 2025-01-02 09:55 | XMS_ITS | Encounter Summary ---
Author Organization [facility] [place] [address] Care Team Providers Care Tone Cabinet Assembler Name Role Phone Shameka Reese MD Primary Care Provider [phone] Encounter Details Date Type Department Care Team (Latest Contact Info) Description 12/28/2024 Travel Social History Tobacco Use Types Packs/Day Years Used Date Smoking Tobacco: Never Passive Smoke Exposure: Never Smokeless Tobacco: Never Alcohol Use Standard Drinks/Week Comments Not Currently 0 (1 standard drink = 0.6 oz pur e alcohol) [facility] Utilities Answer Date Recorded In the past 12 months has [employer], gas, oil, or water company threatened to shut off services in your home? No 07/01/2023 Overall Financial Resource Strain (CARDIA) Answe r Date Recorded How hard is it for you to pa y for the very basics like food, housing, medical care, and heating? Not very hard 07/01/2023 PHQ-2 Answer Date Recorded PHQ-2 Total Score 0 09/01/2024 [facility] [...] to get more. Never true 07/01/2023 [facility] [address] IP Transportation Answer D ate Recorded In [...] EST Office Visit [facility] [address] [place], [place] [id number] Jessica Leach APRN [address] [place], [place] [id number] documented as of this encounter Goals Goal Patient Goal Type Associated Problems Recent Progress Patient-Stated? Author Blood Pressure < 140/90 Blood Pressure 122/84(2024 11:08 AM EDT) No Gisselle Del Cid, JESSA Maintain a healthy diet, exercise regularly and maintain an ideal body weight General No Sol oHuse, RMA documented as of this encounter Visit Diagnoses Not on filedocumented in this encounter Care Teams Tone Cabinet Assembler Relationship Specialty Start Date End Date Shameka Reese MD [address] [place] [id number] PCP - General Family Medicine 05/19/16 documented as of this encounter
--- OUTSIDE RECORDS SUMMARY | 2025-01-02 09:55 | XMS_ITS | Clinical Summary ---
Author Organization [facility] Address [address] [place] [address] Care Team Providers Care Helper Driver Name Role Phone Unavailable Primary Care Provider Unavailabl e Source Comments This information has been disclosed to you from confidential records protectedfrom disclosure by state law. You shall make no further disclosure of thisinformation without the specific, written, and informed release of theindividual to whom it pertains, or as otherwise permitted by law. A generalauthorization for the release of medical or other information is not sufficientfor the purposes of therelease of HIV test results or diagnoses. [id number] Health Encounters Date Type Department Care Team Description 01/01/2025 Orders Only [facility] [address], [place] [id number] Jessica Leach Abnormal finding on MRI of brain (Primary Dx) from Last 3 Months Social History Tobacco Use Types Packs/Day Years Used Date Smoking Tobacco: Never Assessed Comments Unknown Sex and Gender Information Value Date Recorded Sex Assigned at Not on file Legal Sex Female 10:06 AM EDT Gender Identity Not on file Sexual Orientation Not on file Plan of Treatment Not on file Insurance [employer] PPO
--- OUTSIDE RECORDS SUMMARY | 2025-01-02 09:55 | XMS_ITS | Clinical Summary ---
Author Organization 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 Cefixime Hives High Medications albuterol (PROVENTIL HFA;VENTOLIN HFA) 90 mcg/actuation Inhl HFA Aerosol InhalerIndicati ons:Acute bronchitis, unspecified organism Inhale 2 Puffs into the lungs every 4 hours as needed for Wheezing. 1 Each 2 3 Active MULTIVITAMIN ORAL Take by mouth. Active pantoprazole (PROTONIX) 40 mg Oral Tablet, Delayed Release (E.C.)Indicatio ns:Gastroesopha geal reflux disease with esophagitis, unspecified whether hemorrhage Take 1 Tablet by mouth 2 times daily. 180 Tablet 2 5 Active ergocalciferol (VITAMIN D) 1,250 mcg (50,000 unit) Oral Capsule Take 1 Capsule by mouth once a week. 12 Capsule 3 5 Active busPIRone (BUSPAR) 10 mg Oral TabletIndicatio ns:PTSD (post-traumatic stress disorder),Night portillo,Adjustmen t disorder with mixed anxiety and depressed mood Take 1 Tablet by mouth 2 times daily. For anxiety 60 Tablet 5 5 Active desvenlafaxine succinate (PRISTIQ) 50 mg Oral Tablet Sustained Release 24 hrIndications:P TSD (post-traumatic stress disorder),Night portillo,Adjustmen t disorder with mixed anxiety and depressed mood Take 1 Tablet by mouth daily. 90 Tablet 3 5 Active ondansetron (ZOFRAN) 4 mg Oral TabletIndicatio ns:Nausea Take 1 Tablet by mouth every 4 [...] of 200mg per 24 hours. 16 Tablet 5 Active atogepant 60 mg Oral Tablet Take 1 Tablet by mouth daily. 30 Tablet 11 5 Active tirzepatide, weight loss, 7.5 mg/0.5 mL SubQ SolutionIndicat ions:Obesity, Class III, BMI 40-49.9 (morbid obesity) Inject 7.5 mg under the skin once a week. 3 mL 1 5 Active sulfamethoxazol e-trimethoprim (BACTRIM DS) 800-160 mg Oral Tablet Take 1 Tablet by mouth 2 times daily. for 10 days 5 Active rimegepant (NURTEC ODT) 75 mg Oral Tablet, Rapid DissolveIndicat ions:Migraine without aura and without status migrainosus, not intractable Dissolve 1 Tablet by mouth every 48 hours. 18 Tablet 5 5 12/06/19 25 Discontinue d(TE- erapy completed) tirzepatide, weight loss, 7.5 mg/0.5 mL SubQ SolutionIndicat ions:Obesity, Class III, BMI 40-49.9 (morbid obesity) Inject 7.5 mg under the skin once a week. 3 mL 1 5 12/13/19 25 Discontinue d(Reorder) atogepant 60 mg Oral Tablet Take 1 Tablet by mouth daily. 30 Tablet 11 5 12/09/19 25 Discontinue d(Reorder) oxyCODONE-aceta minophen (PERCOCET) 5-325 mg Oral Tablet Take 1 Tablet by mouth every 6 hours as needed for Acute Pain (R52) for up to 3 days. 12 Tablet 5 12/21/19 25 ciprofloxacin HCl (CIPRO) 500 mg Oral Tablet Take 1 Tablet by mouth 2 times daily for 10 days. 20 Tablet 5 12/28/19 25 Active Problems Patient Care Coordination No te Formatting of this note migh t be different from the original. Kam 02/16/18 As expected All consents signed 05/19/16 Problem Noted Date Diagnosed Date Refractive error 12/29/2024 Assessment & Plan (12/29/2024 9:48 AM EDT): Discussed with patient changes in vision and prescription. Rx Computer Rx. 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 Todays findings: No Signs of Papilledema today. OCT RNFL: Normal OD/OS 24-2 HVF: No signs of compression or cecocentral defects Color vision: Normal OD/OS Secure chat of findings to Neuro. Ureter, calculus 12/19/2021 Overview (12/19/2021): Added automatically from request for surgery [id number] Normal labor and delivery 10/05/2021 Single delivery [...] in second trimester 01/18/2017 08/17/2017 Overview (06/08/2017): pt Declined Quad screen. First delivery complicated [...] (10/28/2015): pt per request It's a GIRL!! Declined Quad/CF testing. Normal anatomy scan. Female fetus. TDaP reaction. Rubella non-immune status, antepartum 06/10/2015 07/13/2016 Overview (08/12/2015): Offer MMR pp Unspecified emotional distur bance of childhood or adolescence 03/19/2017 False labor after 37 weeks o f gestation without delivery 10/01/2015 Encounters Date Type Department Care Team Description 01/01/2025 2:43 PM EDT - 01/01/2025 11:59 PM EDT Hospital Encounter [facility] [address] [place] [address] New Marroquin MD Kidney stones Discharge Disposition: Home or Self Care 01/01/2025 11:10 AM EDT Office Visit [facility] [address] [phone] New Marroquin MD Kidney stones (Primary Dx) 01/01/2025 Results Follow-Up [facility] [address] [phone] ABDOMEN PELVIS WO ORAL OR IV CONTRAST 12/29/2024 2:34 PM EDT - 12/29/2024 11:59 PM EDT Hospital Encounter [facility] MRI [address] [place] [address] Jessica Leach APRN IIH (idiopathic intracranial hypertension) Discharge Disposition: Home or Self Care 12/29/2024 8:40 AM EDT Office Visit [facility] [address] [place] [phone] Jonathan Saldana, OD Encounter for complete eye exam (Primary Dx); Refractive error 12/28/2024 Travel 12/28/2024 Results Follow-Up [facility] [address] [place] [address] Jessica Leach APRN [place] GUIDED LUMBAR PUNCTURE DIAGNOSTIC, CEREBROSPINAL FLUID CULTURE (STAIN INCLUDED), MENINGITIS/ENCEPH PANEL, Additional followed-up results: 4 12/27/2024 7:23 AM EDT - 12/27/2024 11:59 PM EDT Hospital Encounter [facility] [place] [address] Jessica Leach APRN Discharge Disposition: Home or Self Care 12/27/2024 7:13 AM EDT - 12/27/2024 7:22 AM EDT Hospital Encounter [facility] [place] [address] Jessica Leach APRN Todd, Caroline Wise, PA-C IIH (idiopathic intracranial hypertension) Discharge Disposition: Home or Self Care 12/21/2024 Telephone [facility] [address] [place] [address] Jessica Leach APRN Other (Lumbar Puncture) 12/21/2024 Telephone [facility] [address] [place] [address] Shameka Reese MD Results (labs) 12/19/2024 Results Follow-Up [facility] [address] [facility] [place] [address] [address] RMA [address] ABDOMEN PELVIS W WO CONTRAST 12/19/2024 Abstract [facility] [address] [facility] [place] [address] Jim Bain APRN 12/17/2024 1:26 PM EDT - 12/17/2024 2:58 PM EDT [facility] [address] [place] [address] Nina Amaral MD Pyelonephritis (Primary Dx) Discharge Disposition: Home or Self Care 12/12/2024 Refill [facility] [address] [place] [address] Jim Bain APRN Medication Refill 12/11/2024 Telephone [facility] [address] [place] [address] Jessica Leach APRN Prior Authorization (Qulipta PA) 12/05/2024 7:40 AM EDT Telemedicine [facility] [address] [place] [address] Jessica Leach APRN Intractable migraine without aura and without status migrainosus (Primary Dx); IIH (idiopathic intracranial hypertension) 12/05/2024 Orders Only [facility] [place] [address] [place] [address] Neela Serrano RMA IIH (idiopathic intracranial hypertension) (Primary Dx) 12/05/2024 Telephone [facility] [place] [facility] [address] [place] [address] Neela Serrano RMA Procedure (Lumbar puncture) 12/05/2024 Specialty Pharmacy [facility] [address] [place] [address] Yannick Mora, PharmD Pharmacy Migraine Medication Management (Qulipta) 12/05/2024 Specialty Pharmacy [facility] [address] [place] [address] Yannick Mora, PharmD Pharmacy Migraine Medication Management (Ubrelvy ) 12/01/2024 Results Follow-Up [facility] [address] [place] [address] Jim Bain APRN CBC, COMPREHENSIVE METABOLIC PANEL, HEMOGLOBIN A1C, Additional followed-up results: 2 11/29/2024 8:00 AM EDT Office Visit [facility] [address] [place] [address] Jim Bain APRN Annual physical exam (Primary Dx); Migraine without aura and without status migrainosus, not intractable; PTSD (post-traumatic stress disorder); Nightmares; Adjustment disorder with mixed anxiety and depressed mood; Nausea; Obesity, Class III, BMI 40-49.9 (morbid obesity) 10/30/2024 Refill [facility] [address] [facility] [place] [address] Panchito Mann MD Medication Refill 10/10/2024 Telephone [facility] [address] [facility] [place] [address] Shameka Reese MD Other (Pt wanting to confirm fax came from short term disability 10/07) 10/06/2024 8:00 AM EDT Office Visit [facility] [address] [facility] [place] [address] Jim Bain APRN Migraine without aura and without status migrainosus, not intractable (Primary Dx); Nausea 10/06/2024 Telephone [facility] [address] [facility] [place] [address] Shameka Reese MD Medication Management ( [...] EDT) //ketorolac (TORADOL) 10 mg Oral Tablet [[id number]]//) 10/05/2024 Travel 10/05/2024 Results Follow-Up [facility] [address] [place] [address] Corinna Ibrahim APRN VITAMIN B1 (THIAMINE) WHOLE BLOOD -REF LAB, VITAMIN B12/ FOLIC ACID, VITAMIN D 25 HYDROXY, Additional followed-up results: 3 from Last 3 Months Immunizations Immunization Administration [...] 1542; Surgeon: Lisa Hannon MD; Location: [facility]; Service: Gynecology CYSTOSCOPY 11/19/2017 Right CYSTOSCOPY RIGHT STENT INSERTION; Surgeon: Sam Daily MD; Location: [facility]; Service: Urology Medical devices from this surgery are in the Medical Devices section. SECTION 10/05/2021 N/A REPEAT SECTION. skin incision at 1037, uterine at 1040, delivered at 1041, placenta [id number].; Surgeon: Marline Byrnes MD; Location: [facility]; Service: Obstetrics CYSTOSCOPY 12/25/2021 Right cystoscopy right stent removal ; Surgeon: Juan Mackenzie MD; Location: [facility]; Service: Urology GASTRECTOMY 06/30/2023 Abdomen/N/A Robotic sleeve gastrectomy; Surgeon: Lula Ruvalcaba MD; Location: [facility]; Service: General [place] GUIDED LUMBAR PUNCTURE DIAGNOSTIC 12/27/2024 [place] GUIDED LUMBAR PUNCTURE DIAGNOSTIC 12/27/2024 Marylu Gates PA-C [facility] Medical History Medical History Date Comments GERD (gastroesophageal reflux disease) PCOS (polycystic ovarian syndrome) Vulval or perineal trauma du ring delivery with problem 05/25/2017 ASD (atrial septal defect) 06/01/2017 resol fazal Renal calculus, right 11/19/2017 Urinary tract infection history of Depression Pneumonia 03/11 Other seasonal allergic rhinitis Migraine Family History Medical History Relation Name Comments [...] 0.6 oz pur e alcohol) [facility] Utilities Answer Date Recorded In the past 12 months has e electric, gas, oil, or water Draft threatened to shut off services in your home? No 07/01/2023 Overall Financial Resource Strain (CARDIA) Answe r Date Recorded How hard is it for you to pa y for the very basics like food, housing, medical care, and heating? Not very hard 07/01/2023 PHQ-2 Answer Date Recorded PHQ-2 Total Score 0 09/01/2024 [facility] [place] [facility] Occupat ional Health - Occupational Stress [...] get more. Never true 07/01/2023 [facility] IP Transportation Answer D ate Recorded [...] Epidur al N Livin g 8 9 Lisa Hannon MD Complications:Shoulder (gird le) dystocia during labor and delivery Delivery Location:[facility] 2016 SAB 10w 0d SAB 2017 Term 39w 0d 0h 01m 0h 01m 8 lb 8.2 oz (3.86 kg) F CSP Spinal N Livin g 9 9 LORE PADGETT BABY Lisa Hannon MD Complications:Atrial septal defect,Vulval or perineal trauma during delivery with problem Delivery Location:[facility] ([facility]) Comments:none 2021 Term 38w 5d 0h 03m 0h 03m 8 lb 6 oz (3.799 kg) M MEDICAL DATA ANALYST Spinal N Livin g 8 9 LORE PADGETT Lisa M, MD Delivery Location:[facility] ([facility]) Last Filed Vital Signs Vital Sign Reading Time Taken Comments Blood Pressure 122/84 01/01/2025 11:08 AM EDT Pulse 84 01/01/2025 11:08 AM EDT Temperature 36.3 C (97.4 F) 01/01/2025 11:08 AM EDT Respiratory Rate 18 12/27/2024 8:58 AM EDT Oxygen Saturation 97% 01/01/2025 11:08 AM EDT Inhaled Oxygen Concentration - - Weight 97.5 kg (215 lb) 01/01/2025 11:08 AM EDT Height 149.9 cm (4' 11 ) 01/01/2025 11:08 AM EDT Body Mass Index 43.42 01/01/2025 11:08 AM EDT Plan of Treatment Upcoming Encounters Date Type Department Care Team (Late st Contact Info) Description 03/09/2025 8:00 AM EST Office Visit [facility] [address] [place] [address] Jessica Leach, CALCINER OPERATOR HELPER [address] [place] [address] Health Maintenance Due Date Last Done Comments [...] ideal body weight General Sol Handy RMA Medical Devices Implanted Type Area Rn Perinatal Device Identifier Shelf Expiration Date Model / Serial / Lot Stent Contour 7 X 24 #[id number] - [id number] Implanted:Qty: 1 on 11/19/2017 by Sam Daily MD at [facility] Stent Right: Ureter [employer]:MICROVASIVE: UROLOGY 11/09/2019 [id number] / / [id number] Procedures Procedure Name Priority Date/Time Associated Diagnosis Comments CT ABDOMEN PELVIS WO ORAL OR IV CONTRAST STAT 01/01/2025 2:47 PM EDT Kidney stones [facility] URINAL[facility] POC Routine 01/01/2025 11 :14 AM EDT Kidney stones MRI VENOGRAM INTRACRANIAL WO CONTRAST Routine 12/29/2024 3:20 PM EDT IIH (idiopathic intracranial hypertension) FL GUIDED LUMBAR PUNCTURE DIAGNOSTIC Routine 12/27/2024 9:08 AM EDT IIH (idiopathic intracranial hypertension) PROTEIN [...] 7:27 AM EDT IIH (idiopathic intracranial hypertension) CT ABDOMEN PELVIS W WO CONTRAST Routine 12/19/2024 HUMAN CHORIONIC GONADOTROPIN QUANTITATIVE STAT 12/17/2024 2:07 [...] 11/29/2024 8:17 AM EDT Annual physical exam ADVERTISING EXECUTIVE CYTOLOGY REQUEST (PAP ONLY) Routine 04/09/2021 11:45 AM EST Supervision of other normal , antepartum from Last 3 Months or Most Recently Relevant to Health Maintenance Results * CT ABDOMEN PELVIS WO ORAL OR IV CONTRAST (01/01/2025 2:47 PM EDT) Anatomical Region Laterality Modality Abdomen, Pelvis Computed Tomogra phy 01/01/2025 2:47 PM EDT Impressions 01/01/2025 3:16 PM EDT 1. Obstructing 6 mm RIGHT ureteropelvic junction calculus. Narrative 01/01/2025 3:[address] ABDOMEN PELVIS WO ORAL OR IV CONTRAST 01/01/2025 2:47 PM HISTORY: N20.0-Calculus of gcemwr-CBT-03-CM PROCEDURE: CT abdomen pelvis noncontrast. FINDINGS: Lung [...] CONTRAST 01/01/2025 2:47 PM HISTORY: N20.0-Calculus of phfnri-OJD-86-CM PROCEDURE: CT abdomen pelvis noncontrast. FINDINGS: Lung [...] POC Yellow Color 01/01/2025 11:17 AM EDT [facility] [place] Appear POC Clear Clear 01/01/2025 11:17 AM EDT [facility] [place] [facility] Gluc POC Negative Negative mg/dL 01/01/2025 11:17 AM EDT [facility] [place] [facility] Bili POC Negative Negative 01/01/2025 11:17 AM EDT [facility] [place] [facility] Ketones POC Negative Negative mg/dL 01/01/2025 11:17 AM EDT [facility] SG POC 1.020 1.001 - 1.035 no units 01/01/2025 11:17 AM EDT [facility] Blood POC Trace-Intact (A) Negative 01/01/2025 11:17 AM EDT [facility] [place] [facility] pH POC 8.5(H) 5.0 - 8.0 pH 01/01/2025 11:17 AM EDT [facility] [place] [facility] Protein POC Trace(A) Negative mg/dL 01/01/2025 11:17 AM EDT [facility] Urobilinogen POC 0.2 0.2, 1.0 01/01/2025 11:17 AM EDT [facility] [place] [facility] Nitrite POC Negative Negative 01/01/2025 11:[address] [facility]A Leuk Est POC Small(A) Negative 11:[address] [facility] Urine STRUCTURE OF URINARY TRACT PROPER / Unknown 01/01/2025 11:14 AM EDT 01/01/2025 11:17 AM EDT New Marroquin MD POINT OF CARE TEST ORDERA BLES Final Result [facility] [address] [place] [address] * MRI VENOGRAM INTRACRANIAL WO CONTRAST (12/29/2024 [...] CLINICAL HISTORY: 29 years-old with G93.2-Benign intracranial adzqpxugkuuu-API-67-CM COMPARISON: MRI brain with without contrast 09/29/2024. [...] CLINICAL HISTORY: 29 years-old with G93.2-Benign intracranial yguedlymkyky-COF-13-CM COMPARISON: MRI brain with without contrast 09/29/2024. [...] office of the ordering clinician. Jessica Leach APRN IMG MRI ORDERABLES Final Re sult * [...] 12/27/2024 9:08 AM Clinical indications: G93.2-Benign intracranial qwkaahrgsjgy-GCC-74-CM PROCEDURE: 1. Procedure performed by Chaz Bailey [...] 12/27/2024 9:08 AM Clinical indications: G93.2-Benign intracranial tfgmytyowixh-UUV-17-CM PROCEDURE: 1. Procedure performed by Chaz Bailey [...] Bailey PA-C/ Francisco Guidry M.D. Jessica Leach APRN IMG FLUOROSCOPY ORDERABLES Final Result * CSF CELL COUNT WITH DIFF (12/27/2024 9:03 AM EDT) [facility] CSF Tube Num 4 number 12/27/2024 10:16 AM EDT [facility] CSF Color Colorless Colorless color 12/27/2024 10:16 AM EDT [facility] CSF Appear Clear Clear appearance 12/27/2024 10:16 AM EDT [facility] CSF RBC 0 <=0 /mcL 12/27/2024 10:16 AM EDT [facility] CSF Total Nucleated Cells 2 0 - 5 /mcL 12/27/2024 10:16 AM EDT [facility] Cerebrospinal Fluid LUMBAR PUNCTURE / Unknown 12/27/2024 9:03 AM EDT 12/27/2024 9:14 AM EDT Jessica Leach APRN BODY FLUIDS AND STOOLS ORDE RABMELVINA Final Result [facility] [address] [place] [address] * MENINGITIS/ENCEPH PANEL (12/27/2024 9:03 AM EDT) [facility] E. coli K1 Not Detected Not Detected [...] 11:18 AM EDT [facility] (CMV) Cytomegalovirus Not Detected Not Detected 12/27/2024 11:18 AM EDT [facility] [employer], [facility] Comment:The Film Array ME pa sumeet does not distinguish between latent and active CMV infection. Detection of this virus may indicate primary infection, secondary reactivation, or the presence of latent virus. Results should always be interpreted in conjunction with other clinical, laboratory and epidemiological information. (EV) Enterovirus Not Detected Not Detected 12/27/2024 11:18 AM EDT [facility] [employer] (HSV-1) Herpes simplex virus 1 Not Detected Not Detected 12/27/2024 11:18 AM EDT [facility] [employer], [facility] (HSV-2) Herpes simplex virus 2 Not Detected Not Detected 12/27/2024 11:18 AM EDT [facility] [employer], [facility] (HHV-6) Human herpesvirus 6 Not Detected Not Detected 12/27/2024 11:18 AM EDT [facility] [employer], [facility] Comment:The Film [employer] ME pa sumeet does not distinguish between latent and active HHV-6 infection. Detection of this virus may indicate primary infection, secondary reactivation, or the presence of latent virus. Results should always be interpreted in conjunction with other clinical, laboratory and epidemiological information. (HPeV) Human parechovirus Not Detected Not Detected 12/27/2024 11:18 AM EDT [facility] [employer], [facility] (VZV) Varicella zoster virus Not Detected Not Detected 12/27/2024 11:18 AM EDT [facility] [employer], [facility] Cryptococcus neoformans/man Not Detected Not Detected 12/27/2024 11:18 AM EDT [facility] [employer], [facility] Cerebrospinal Fluid LUMBAR PUNCTURE / Unknown 12/27/2024 9:03 AM EDT 12/27/2024 9:14 AM EDT Jessica Leach APRN BODY FLUIDS AND STOOLS REBECCA HADDAD Final Result [facility] [employer], [facility] [address] [place] [address] * CEREBROSPINAL FLUID CULTURE (STAIN INCLUDED) (12/27/2024 9:03 AM EDT) Culture No Growth at 5 days. 01/01/2025 7:18 AM EDT [facility] Stain No WBCs 01/01/2025 7:18 AM EDT [facility] Stain No organisms seen 01/01/2025 7:18 AM EDT [facility] Cerebrospinal Fluid LUMBAR PUNCTURE / Unknown 12/27/2024 9:03 AM EDT 12/27/2024 9:14 AM EDT us Jessica Stone Hany [place] MICROBIOLOGY - GENERAL ORDE RABLES Final Result Performing Organization Address City/[facility]/ZIP Co de Phone Number [facility], [facility] [address], [address] [place] [phone] * (ABNORMAL) PROTEIN CEREBROSPINAL FLUID (12/27/2024 9:03 AM EDT) Protein CSF 13(L) 15 - 45 mg/dL 12/27/2024 10:04 AM EDT [facility] Cerebrospinal Fluid LUMBAR PUNCTURE / Unknown 12/27/2024 9:03 AM EDT 12/27/2024 9:14 AM EDT Jessica Bertha Hany CALCINER OPERATOR HELPER BODY FLUIDS AND STOOLS ORDE RABLES Final Result Performing Organization Address [facility] Co de Phone Number [facility] [address] [place] [phone] * GLUCOSE CEREBROSPINAL FLUID (12/27/2024 9:03 AM EDT) Glucose CSF 55 40 - 70 mg/dL 12/27/2024 10:04 AM EDT [facility] Cerebrospinal Fluid LUMBAR PUNCTURE / Unknown 12/27/2024 9:03 AM EDT 12/27/2024 9:14 AM EDT us Jessica Leach CALCINER OPERATOR HELPER BODY FLUIDS AND STOOLS ORDE RABLES Final Result Performing Organization Address [facility] Co de Phone Number [address] [address] * CBC (12/27/2024 7:27 AM EDT) Only the most recent of2 resultswithin the time period is included. WBC 4.7 3.7 - 10.3 x10(3)/mcL 12/27/2024 [...] nal Result [facility] [address] [place] [address] * PT / INR (12/27/2024 7:27 AM EDT) PT 11.5 10.5 - 13.6 second(s) 12/27/2024 7:51 AM EDT [facility] INR 1.00 0.91 - 1.18 (ratio) 12/27/2024 7:51 AM EDT [facility] [employer] Comment: Level of Therapy Indications Target INR Range Standard Dose Treatment and prophylaxis of venous 2.0 - 3.0 thrombosis, pulmonary embolism High Dose High risk patients with mechanical 2.5 - 3.5 heart valves Blood VENOUS BLOOD / Unknown Venipuncture / Unknown 12/27/2024 7:27 AM EDT 12/27/2024 7:27 AM EDT Marylu Gates PA-C HEMATOLOGY ORDERABLES Fi nal Result [facility] [address] [place] [phone] * CT ABDOMEN PELVIS W WO CONTRAST (12/19/2024) Anatomical Region Laterality Modality Abdomen, Chest, Pelvis, Hip Othe r 12/19/2024 Impressions 12/19/2024 Bilateral kidney stones measuring up to 8 mm. Mild right hydronephrosis with stranding along the right ureter, probably due to recently passed kidney stone. Historical Provider IMG CT ORDERABLES Final Resu lt * HUMAN CHORIONIC GONADOTROPIN QUANTITATIVE (12/17/2024 2:07 PM EDT) Hcg Quant <1 <5 mIU/mL 12/17/2024 2:28 PM EDT [facility] Blood VENOUS BLOOD / Unknown Venipuncture / Unknown 12/17/2024 2:07 PM EDT 12/17/2024 2:09 PM EDT Narrative [facility] - 12/17/2024 2:28 PM EDT [...] sample can interfere with this immunoassay test. Nasir Lacy APRN CHEMISTRY ORDERABLES Final R esult [facility] [address] [place] [address] * BASIC METABOLIC PANEL (12/17/2024 2:07 PM EDT) Sodium 138 136 - 145 mmol/L 12/17/2024 2:24 PM EDT [facility] Potassium 3.9 3.5 - 5.0 mmol/L 12/17/2024 2:24 PM EDT [facility] Chloride 103 98 - 107 mmol/L 12/17/2024 2:24 PM EDT [facility] Total CO2 23 22 - 29 mmol/L 12/17/2024 2:24 PM EDT [facility] Anion Gap 12 7 - 16 mmol/L 12/17/2024 2:24 PM EDT [facility] Calcium 9.0 8.6 - 10.4 mg/dL 12/17/2024 2:24 PM EDT [facility] Glucose Lvl 96 70 - 99 mg/dL 12/17/2024 2:24 PM EDT [facility] BUN 10 6 - 20 mg/dL 12/17/2024 2:24 PM EDT [facility] Creatinine 0.79 0.51 - 1.30 mg/dL 12/17/2024 2:24 PM T [facility] eGFR (CKD-EPIcr 2020) 103 >=60 mL/min/1.7 3 m2 12/17/2024 2:24 PM EDT [facility] Comment:Estimated GFR was ca lculated using the CKD-EPIcr (2020) equation refit without race. The equation is recommended by the National Kidney Foundation - [place] Society of Nephrology Task Force. Blood VENOUS BLOOD / Unknown Venipuncture / Unknown 12/17/2024 2:07 PM EDT 12/17/2024 2:09 PM EDT Nasir Lacy APRN CHEMISTRY ORDERABLES Final R esult [facility] [address] [place] [address] * (ABNORMAL) URINALYSIS REFLEX (12/17/2024 1:56 PM EDT) UA Color Coffee 12/17/2024 2:08 PM EDT [facility] UA Appear Slightly Cloudy(A) Clear 12/17/2024 2:08 PM EDT [facility] UA Glucose Negative Negative mg/dL 12/17/2024 2:08 PM EDT [facility] UA Ketones Trace (5 mg/dL)(A) Negative mg/dL 12/17/2024 2:08 PM EDT [facility] UA Blood Large(A) Negative 12/17/2024 2:08 PM EDT [facility] UA pH 6.0 5.0 - 8.0 pH 12/17/2024 2:08 PM EDT [facility] UA Protein >=300(A) Negative mg/dL 12/17/2024 2:08 PM EDT [facility] UA Urobilinogen 2.0(A) <=1 mg/dL 2:08 PM EDT [facility] UA Bili 12/17/2024 2:08 PM EDT [facility] Comment:Unable to report. Ca nnot rule out interfering substances that may yield false positive results. Consider correlation with serum bilirubin result. UA Nitrite Positive(A) Negative 12/17/2024 2:08 PM EDT [facility] UA Leuk Est Small(A) Negative 12/17/2024 2:08 PM EDT [facility] UA Spec Grav >=1.030 1.001 - 1.035 no units 12/17/2024 2:08 PM EDT [facility] Comment:Reference range tobias d for random specimens only. UA WBC 30(H) 0 - 4 /HPF 12/17/2024 2:08 PM EDT [facility] UA RBC 12(H) 0 - 3 /HPF 12/17/2024 2:08 PM EDT [facility] UA Squam Epi 2+ /LPF 12/17/2024 2:08 PM EDT [facility] UA Mucus 1+ /LPF 12/17/2024 2:08 PM EDT [facility] UA Amorph 1+ /HPF 12/17/2024 2:08 PM EDT [facility] UA Bacteria 1+(A) Negative /HPF 12/17/2024 2:08 PM EDT [facility] Urine STRUCTURE OF URINARY TRACT PROPER / Unknown 12/17/2024 1:56 PM EDT 12/17/2024 1:58 PM EDT Nasir Lacy CALCINER OPERATOR HELPER URINE ORDERABLES Final Resul t Performing Organization Address [facility] Co de Phone Number [facility] [address] [place] [address] * EXTRA MARIE URINE CX (12/17/2024 1:56 PM EDT) Urine STRUCTURE OF URINARY TRACT PROPER / Unknown 12/17/2024 1:56 PM EDT 12/17/2024 1:58 PM EDT Nasir Lacy APRN MICROBIOLOGY - GENERAL ORDER KIANA Final Result Performing Organization Address [facility] de Phone Number [facility] [address] [place] [address] * (ABNORMAL) URINE CULTURE (NO STAIN) (12/17/2024 1:56 PM EDT) Culture Positive Growth(A) 12/19/2024 11:01 AM EDT [facility] [employer] [employer] Culture >100,000 CFU/mL Klebsiella pneumoniae SUSCEPTIBI LITY RESULT 12/19/2024 11:01 AM EDT [facility] Urine STRUCTURE OF URINARY TRACT PROPER / [...] SUSCEPTIBILITY RESULT <=0.5/9.5 ug/mL: Susceptible Nasir Lacy CALCINER OPERATOR HELPER MICROBIOLOGY - GENERAL ORDER KIANA Final Result [facility] [address] , [place] [address] * THYROID STIMULATING HORMONE (11/29/2024 8:17 AM EDT) [facility] TSH 1.690 0.270 - 4.200 mcIU/mL 11/29/2024 6:23 PM EDT [employer] [facility] [employer] Blood VENOUS BLOOD / Unknown Venipuncture / Unknown 11/29/2024 8:17 AM EDT 11/29/2024 8:17 AM EDT Narrative [facility] [employer] - 11/29/2024 6:23 PM EDT Ingestion of abhinav doses of biotin (>5 mg/day) taken within 8 hours of drawing blood sample can interfere with this immunoassay test. Jim Bain APRN CHEMISTRY ORDERABLES Final R [facility] Performing Organization Address [facility] de Phone Number [facility] [employer] , [place] [address] * HEMOGLOBIN A1C (11/29/2024 8:17 AM EDT) Pathologist [facility] Hgb A1C 4.8 4.2 - 5.6 % 11/29/2024 5:12 PM EDT [facility] [employer], [facility] Est. Avg Glucose 91 mg/dL 11/29/2024 5:12 PM EDT [facility] [employer], [facility] Blood VENOUS BLOOD / Unknown Venipuncture / Unknown 11/29/2024 8:17 AM EDT 11/29/2024 8:17 AM EDT Narrative [facility] [employer], [facility] - 11/29/2024 5:12 PM EDT REFERENCE [...] ORDERABLES Final R esult Performing Organization Address [facility] de Phone Number [facility] [employer] , [place] [address] * (ABNORMAL) LIPID SCREEN (11/29/2024 8:17 AM EDT) Pathologist [facility] Cholesterol 184 <200 mg/dL 11/29/2024 6:23 PM EDT [facility] [employer], [facility] Comment: < 200 Desirable 200 - 239 Borderline High >= 240 High Triglyceride 64 <150 mg/dL 11/29/2024 6:23 PM EDT [facility], [facility] Comment: < 150 Normal 150 - 199 Borderline High 200 - 499 High >= 500 Very High HDL 37(L) >=40 mg/dL 11/29/2024 6:23 PM EDT [facility], [facility] Comment: > 60 Optimal 40 - 60 Acceptable < 40 Low LDL Calculated 135(H) <100 mg/dL 11/29/2024 6:23 PM EDT [facility], [facility] Comment: < 100 Optimal 100 - 129 Near or above optimal 130 - 159 Borderline High 160 - 189 High >= 190 Very High The National Institutes of Health (NIH) equation is used for all lipid panels that report calculated LDL (LDL-C). Non-HDL-C Calculated 147(H) <=129 mg/dL 11/29/2024 6:23 PM EDT [facility], [facility] Comment: <130 Desirable 130-159 Above Desirable 160-189 Borderline High 190-219 High >= 220 Very High Fasting Specimen? Unknown None 025 6:23 PM EDT [facility], [facility] Blood VENOUS BLOOD / Unknown Venipuncture / Unknown 11/29/2024 8:17 AM EDT 11/29/2024 8:17 AM EDT us Jim Bain CALCINER OPERATOR HELPER CHEMISTRY ORDERABLES Final R esult [facility], [facility] [address] , [address] [place] [id number] * COMPREHENSIVE METABOLIC PANEL (11/29/2024 8:17 AM EDT) Sodium 137 136 - 145 mmol/L 11/29/2024 6:23 PM EDT [facility] Potassium 3.8 3.5 - 5.0 mmol/L 11/29/2024 6:23 PM EDT [facility] Chloride 103 98 - 107 mmol/L 11/29/2024 6:23 PM EDT [facility], [facility] Total CO2 23 22 - 29 mmol/L 11/29/2024 6:23 PM EDT [facility] Anion Gap 11 7 - 16 mmol/L 11/29/2024 6:23 PM EDT [facility], [facility] Calcium 8.8 8.6 - 10.4 mg/dL 11/29/2024 6:23 PM EDT [facility], [facility] Glucose Lvl 72 70 - 99 mg/dL 11/29/2024 6:23 PM EDT [facility], [facility] BUN 8 6 - 20 mg/dL 11/29/2024 6:23 PM EDT [facility] Creatinine 0.78 0.51 - 1.30 mg/dL 11/29/2024 6:23 PM EDT [facility], [facility] Albumin 4.1 3.5 - 5.2 gm/dL 11/29/2024 6:23 PM EDT [facility], [facility] Total Protein 6.9 6.4 - 8.3 gm/dL 11/29/2024 6:23 PM EDT [facility], [facility] Bili Total 0.6 0.2 - 1.3 mg/dL 11/29/2024 6:23 PM EDT [facility] ALT 8 <=41 U/L 11/29/2024 6:23 PM EDT [facility] AST 17 <=40 U/L 11/29/2024 6:23 PM EDT [facility], [facility] Alk Phos 57 36 - 123 U/L 11/29/2024 6:23 PM EDT [facility] eGFR (CKD-EPIcr 2020) 104 >=60 mL/min/1.7 3 m2 11/29/2024 6:23 PM EDT [facility], [facility] Comment:Estimated GFR was ca lculated using the CKD-EPIcr (2020) equation refit without race. The equation is recommended by the National Kidney Foundation - [place] Society of Nephrology Task Force. Blood VENOUS BLOOD / Unknown Venipuncture / Unknown 11/29/2024 8:17 AM EDT 11/29/2024 8:17 AM EDT us Jim Bain CALCINER OPERATOR HELPER CHEMISTRY ORDERABLES Final R esult [facility], [facility] [address] , [place] [address] * ADVERTISING EXECUTIVE CYTOLOGY REQUEST (PAP ONLY) (04/09/2021 11:45 AM EST) CASE REPORT Gynecologic Cytology Report Case: [id number] Authorizing Provider: Anastacia Kraft APRN Collected: 04/09/2021 1145 Ordering Location: [facility] Received: 04/09/2021 1145 First Screen: Sharon Persaud CT Specimen: LIQUID-BASED PAP - CERVICAL/ENDOCERV ICAL, Cervix, Endocervical 04/10/2021 3:19 PM EST [facility] PAP FINAL DIAGNOSIS Negative for intraepithelial lesion or malignancy 04/10/2021 3:19 PM EST [facility] at 1519 EST MICROSCOPIC DESCRIPTION Microscopic examination is performed and the findings corroborate the diagnosis. 04/10/2021 3:19 PM EST [facility] PAP SMEAR ADEQUACY Satisfactory for evaluation 04/10/2021 3:19 PM EST [facility] ENDOCERVICAL T-ZONE Transformation zone absent. This is not unusual in a woman 04/10/2021 3:19 PM EST [facility] EMBEDDED IMAGES 3:19 PM EST [facility] PAP DISCLAIMER The Pap Smear is a screening test that aids in the detection of cervical cancer and cancer precursors. Both false positive and false negative results can occur. The test should be used at regular intervals, and positive results should be confirmed before definitive therapy. Processed using the ThinPrep Public Welfare Director Automated cytology screening device ([employer]). 04/10/2021 3:19 PM EST [facility] Thin Prep ENDOCERVICAL STRUCTURE / Unknown 04/09/2021 11:45 AM EST 04/09/2021 11:45 AM EST us Anastacia Kraft APRN CYTOLOGY ORDERABLES Final Result [facility] [address] [place] [address] from Last 3 Months or Most Recently Relevant to Health Maintenance Insurance [facility] AETNA [facility] CHOICE PLUS AETNA Advance Directives For more information, please contact: [phone] * Full Code (Latest Code Status on [...] 7:15 AM 05/26/2017 1:49 AM Care Teams Construction Job Cost Estimator Relationship Specialty Start Date End Date Shameka Reese MD [address] [facility] PCP - General Family Medicine 05/19/16
--- OUTSIDE RECORDS SUMMARY | 2025-01-02 09:55 | XMS_ITS | Encounter Summary ---
Author Organization [place] [address] Care Team Providers Care Quencher Operator Name Role Phone Shameka Reese MD Primary Care Provider [phone] Encounter Details Date Type Department Care Team (Late st Contact Info) Description 10/05/2024 Results Follow-Up [facility] [address] [place] [address] Corinna Ibrahim, RELIEF PILOT [address] [facility] [place] [address] VITAMIN B1 (THIAMINE) WHOLE BLOOD -REF LAB, VITAMIN B12/ FOLIC ACID, VITAMIN D 25 HYDROXY, Additional followed-up results: 3 Social History Tobacco Use Types Packs/Day Years Used Date Smoking Tobacco: Never Passive Smoke Exposure: Never Smokeless Tobacco: Never Alcohol Use Standard Drinks/Week Comments Not Currently 0 (1 standard drink = 0.6 oz pur e alcohol) [facility] Utilities Answer Date Recorded In the past 12 months has [employer] electric, gas, oil, or water company threatened to shut off services in your home? No 07/01/2023 Overall Financial Resource Strain (CARDIA) Answe r Date Recorded How hard is it for you to pa y for the very basics like food, housing, medical care, and heating? Not very hard 07/01/2023 PHQ-2 Answer Date Recorded PHQ-2 Total Score 0 09/01/2024 [facility] - Occupational Stress Questionnaire Answer Date Recorded [...] money to get more. Never true 07/01/2023 [facility] IP Transportation Answer [...] [address] [address] [place] [address] Jessica Leach, RELIEF PILOT [address] [facility] [address] [place] [address] documented as of this encounter Goals Goal Patient Goal Type Associated Problems Recent Progress Patient-Stated? Author Blood Pressure < 140/90 Blood Pressure 122/84(2024 11:08 AM EDT) Gisselle Henderson CCMA Maintain a healthy diet, exercise regularly and maintain an ideal body weight General No Sol House RMA documented as of this encounter Visit Diagnoses Not on filedocumented in this encounter Care Teams Quencher Operator Relationship Specialty Start Date End Date Shameka Reese MD [address] [place] [id number] PCP - General Family Medicine 05/19/16 documented as of this encounter
--- OUTSIDE RECORDS SUMMARY | 2025-01-02 09:55 | XMS_ITS | Encounter Summary ---
Author Organization [place] [address] Care Team Providers Care Mule Developer Name Role Phone Shameka Reese MD Primary Care Provider [phone] Encounter Details Date Type Department Care Team (Late st Contact Info) Description 09/30/2024 Results Follow-Up [facility] [address] [place] [phone] Jim Bain, DEBBIE [address] [place] [address] MRI BRAIN W WO CONTRAST Social History Tobacco Use Types Packs/Day Years Used Date Smoking Tobacco: Never Passive Smoke Exposure: Never Smokeless Tobacco: Never Alcohol Use Standard Drinks/Week Comments Not Currently 0 (1 standard drink = 0.6 oz pur e alcohol) [facility] Utilities Answer Date Recorded In the past 12 months has [employer] electric, gas, oil, or water company threatened to shut off services in your home? No 07/01/2023 Overall Financial Resource Strain (CARDIA) Answe r Date Recorded How hard is it for you to pa y for the very basics like food, housing, medical care, and heating? Not very hard 07/01/2023 PHQ-2 Answer Date Recorded PHQ-2 Total Score 0 09/01/2024 [facility] Occupat ional Health - Occupational Stress [...] money to get more. Never true 07/01/2023 [facility] IP Transportation Answer D ate Recorded [...] EST Office Visit [facility] [address] [facility] [address] [place], [place] [id number] Jessica Leach, HUMAN RESOURCES OFFICE ASSISTANT [address] [place] [address] documented as of this encounter Goals Goal Patient Goal Type Associated Problems Recent Progress Patient-Stated? Author Blood Pressure < 140/90 Blood Pressure 122/84(2024 11:08 AM EDT) No Gisselle Del Cid CCMA Maintain a healthy diet, exercise regularly and maintain an ideal body weight General No Sol House RMA documented as of this encounter Visit Diagnoses Not on filedocumented in this encounter Care Teams Mule Developer Relationship Specialty Start Date End Date Shameka Reese MD [address] [place] [address] PCP - General Family Medicine 05/19/16 documented as of this encounter
--- OUTSIDE RECORDS SUMMARY | 2025-01-02 09:55 | XMS_ITS | Encounter Summary ---
Author Organization [facility] Address [address] [place] [address] Care Team Providers Care Still Operator Whiskey Name Role Phone Unavailable Primary Care Provider Unavailabl e Source Comments This information has been disclosed to you from confidential records protectfrom disclosure by state law. You shall make no further disclosure of thisinformation without the specific, written, and informed release of theindividual to whom it pertains, or as otherwise permitted by law. A generalauthorization for the release of medical or other information is not sufficientfor the purposes of the release of HIV test results or diagnoses. [id number] Reason for Referral * Physician/THERESA (Routine) - No Authorization Required Specialty Diagnoses / Procedures Referred By Contac t Referred To Contact Neurosurgery Diagnoses Abnormal finding on MRI of brain Jessica [address] [place] [address] Phone: tel: fax: Jaylen Gross MD [address] [place] [address] Phone: tel: fax: Referral ID Status Reason Start Date Expiration Date Visits Requested Visits Authorized [id number] No Authorization Required 01/01/2025 06/30/2025 1 1 Encounter Details Date Type Department Care Team (Late st Contact Info) Description 01/01/2025 Orders Only [facility] [address] [place], [place] [id number] Jessica Leach[address] [place] [address] Abnormal finding on MRI of brain (Primary Dx) Social History Tobacco Use Types Packs/Day Years Used Date Smoking Tobacco: Never Assessed Comments Unknown Sex and Gender Information Value Date Recorded Sex Assigned at Not on file Legal Sex Female 10:06 AM EDT Gender Identity Not on file Sexual Orientation Not on file documented as of this encounter Plan of Treatment Scheduled Referrals Name Type Priority Associated Diagnoses Order Schedule Neurosurgery - Other Outpatient Referral Routine Abnormal finding on MRI of brain Ordered: 01/01/2025 documented as of this encounter Visit Diagnoses Diagnosis Abnormal finding on MRI of brain- Primary documented in this encounter
--- OUTSIDE RECORDS SUMMARY | 2025-01-02 09:55 | XMS_ITS | Encounter Summary ---
Author Organization [place] [address] Care Team Providers Care Commercial Leasing Agent Name Role Phone Shameka Reese MD Primary Care Provider [phone] Reason for Visit * Reason Onset Date Comments Medication Refill 12/12/2024 Encounter Details Date Type Department Care Team (Late st Contact Info) Description 12/12/2024 Refill [facility] [address] [place] [phone] Jim Bain, DISTANCE LEARNING COORDINATOR [address] [place] [address] Medication Refill Social History Tobacco Use Types Packs/Day Years Used Date Smoking Tobacco: Never Passive Smoke Exposure: Never Smokeless Tobacco: Never Alcohol Use Standard Drinks/Week Comments Not Currently 0 (1 standard drink = 0.6 oz pur e alcohol) [facility] Utilities Answer Date Recorded In the past 12 months has [employer] e electric, gas, oil, or water company threatened to shut off services in your home? No 07/01/2023 Overall Financial Resource Strain (CARDIA) Answe r Date Recorded How hard is it for you to pa y for the very basics like food, housing, medical care, and heating? Not very hard 07/01/2023 PHQ-2 Answer Date Recorded PHQ-2 Total Score 0 09/01/2024 [facility] of Occupat ional Health - Occupational [...] true 07/01/2023 [facility] IP Transportation Answer D ate Recorded [...] EST Office Visit [facility] [address] [facility] [address] [place] [address] Jessica Leach, DISTANCE LEARNING COORDINATOR [address] [facility] [address] [place] [address] documented as of this encounter Goals Goal Patient Goal Type Associated Problems Recent Progress Patient-Stated? Author Blood Pressure < 140/90 Blood Pressure 122/84(2024 11:08 AM EDT) Gisselle Henderson CCMA Maintain a healthy diet, exercise regularly and maintain an ideal body weight General Sol Handy RMA documented as of this encounter Visit [...] documented as of this encounter Care Teams Commercial Leasing Agent Relationship Specialty Start Date End Date Shameka Reese MD [address] [place], [place] [id number] PCP - General Family Medicine 05/19/16 documented as of this encounter
--- OUTSIDE RECORDS SUMMARY | 2025-01-02 09:55 | XMS_ITS | Encounter Summary ---
Author Organization [place] [address] Care Team Providers Care Recording Engineer Name Role Phone Shameka Reese MD Primary Care Provider [phone] Reason for Referral * Consultation (Routine) - Authorization Not Needed Specialty Diagnoses / Procedures Referred By Vineet tanner Referred To Contact Diagnoses Abnormal MRI of head Procedures [place] OFFICE/OUTPATIENT NEW MODERATE MDM 45 MINUTES Jessica Leach APRN [address] [place] [address] Phone: tel: fax: Jaylen Gross MD [address] [facility] [address] [place] [address] Phone: tel: fax: Referral ID Status Reason Start Date Expiration Date Visits Requested Visits Authorized [id number] Authorization Not Needed Specialty Services Required 01/01/2026 1 1 Comments 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 Unable to tolerate Diamox due to kidney stones Encounter Details Date Type Department Care Team (Late st Contact Info) Description 12/28/2024 Results Follow-Up [facility] [address] [facility] [address] [place] [address] Jessica Leach, CYTOLOGIST [address] [place] [address] [place] GUIDED LUMBAR PUNCTURE DIAGNOSTIC, CEREBROSPINAL FLUID CULTURE (STAIN INCLUDED), MENINGITIS/ENCEPH PANEL, Additional followed-up results: 4 Social History Tobacco Use Types Packs/Day Years Used Date Smoking Tobacco: Never Passive Smoke Exposure: Never Smokeless Tobacco: Never Alcohol Use Standard Drinks/Week Comments Not Currently 0 (1 standard drink = 0.6 oz pur e alcohol) [facility] Utilities Answer Date Recorded In the [...] Date Recorded PHQ-2 Total Score 0 09/01/2024 [facility] [place] - Occupational Stress [...] money to get more. Never true 07[facility]2023 [facility] IP Transportation Answer D ate [...] No 06/19/2024 8:05 AM EST J Carlos Babcock, RMA * Is the person blind or does he/she have serious difficulty seeing even when wearing glasses? Answer Date of Assessment Author No 06/19/2024 8:05 AM EST J Carlos Babcock, RMA * Does this person have serious difficulty walking or climbing stairs? Answer Date of Assessment Author No 06/19/2024 8:05 AM EST J Carlos Babcock, RMA * Does this person have difficulty dressing or bathing? Answer Date of Assessment Author No 06/19/2024 8:05 AM EST BabcockJ Carlos mclaughlin, RMA * Because of a physical, mental or emotional condition, does this person have difficulty doing errands alone such as visiting a doctor's office or shopping? Answer Date of Assessment Author No 06/19/2024 8:05 AM EST Babcock, J Carlos, RMA documented as of this encounter Mental Status * Because of a physical, mental or emotional condition, does this person have serious difficulty concentrating, remembering or making decisions? Answer Entry Date Author No 06/19/2024 8:05 AM EST J Carlos Babcock, RMA documented in this encounter Progress Notes * Florencia Polk MA - 01/01/2025 12:44 PM EDT Patient read message. Closing encounter. documented in this encounter Miscellaneous Notes * Telephone Encounter - Florencia Polk MA - 01/01/2025 9:47 AM EDT Taiwo msg sent. Faxing referral to neuros at [phone] documented in this encounter Plan of Treatment Upcoming Encounters Date Type Department Care Team (Late st Contact Info) Description 03/09/2025 8:00 AM EST Office Visit [facility] [address] [facility] [address] [place] [address] Jessica Leach, CYTOLOGIST [address] [place], [place] [id number] Scheduled Referrals Name Type Priority Associated Diagnoses Order Schedule AMB REFERRAL TO NEUROSURGERY Outpatient Referral Routine Abnormal MRI of head Ordered: 01/01/2025 documented as of this encounter Goals Goal Patient Goal Type Associated Problems Recent Progress Patient-Stated? Author Blood Pressure < 140/90 Blood Pressure 122/84(2024 11:08 AM EDT) No Gisselle Del Cid, JESSA Maintain a healthy diet, exercise regularly and maintain an ideal body weight General No Sol House, RMA documented as of this encounter Visit Diagnoses Diagnosis Abnormal MRI of head- Primary Nonspecific (abnormal) findings on radiological and other examination of skull and head documented in this encounter Care Teams Recording Engineer Relationship Specialty Start Date End Date Shameka Reese MD [address] [place] [id number] PCP - General Family Medicine 05/19/16 documented as of this encounter
--- OUTSIDE RECORDS SUMMARY | 2025-01-02 09:55 | XMS_ITS | Encounter Summary ---
Author Organization [place] [address] Care Team Providers Care Sueding And Buffing Machine Operator Name Role Phone Shameka Reese MD Primary Care Provider [phone] Reason for Visit * Reason Onset Date Comments Prior Authorization 12/11/2024 Jorge VERGARA Encounter Details Date Type Department Care Team (Late st Contact Info) Description 12/11/2024 Telephone [facility] Neurology [facility] [address] [place] [address] Jessica Leach, SLAT TWISTER [address] [facility] [address] [place] [address] Prior Authorization (Jorge VERGARA) Social History Tobacco Use Types Packs/Day Years Used Date Smoking Tobacco: Never Passive Smoke Exposure: Never Smokeless Tobacco: Never Alcohol Use Standard Drinks/Week Comments Not Currently 0 (1 standard drink = 0.6 oz pur e alcohol) [facility] Utilities Answer Date Recorded In [...] Date Recorded PHQ-2 Total Score 0 09/01/2024 [facility] - Occupational Stress Questionnaire Answer [...] money to get more. Never true 07/01[facility]2023 [facility] IP Transportation Answer D ate Recorded In [...] 1:26 PM EDT Nazia Sutton RN * [place]son Suicide Severity Rating Scale (Q shift for [...] encounter Miscellaneous Notes * Telephone Encounter - Liz VelaKATJA - 12/19/2024 1:08 PM EDT MC sent to pt * Telephone Encounter - Jessica Leach APRN [...] on the following clinical guideline(s): A [employer] DESMOND VERGARA [id number]. 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 * Telephone Encounter - Neli Angel MA - 12/11/2024 7:54 AM EDT Received faxed PA request for pt's Qulipta. Completed PA on covermymeds. Will wait for response from insurance. GRACIA: [id number] documented in this encounter Plan of Treatment Upcoming Encounters Date Type Department Care Team (Late st Contact Info) Description 03/09/2025 8:00 AM EST Office Visit [facility] [address] [facility] [address] [place] [address] Jessica Leach, SLAT TWISTER [address] [place] [address] documented as of this encounter Goals Goal Patient Goal Type Associated Problems Recent Progress Patient-Stated? Author Blood Pressure < 140/90 Blood Pressure 122/84(2024 11:08 AM EDT) No Gisselle Del Cid CCMA Maintain a healthy diet, exercise regularly and maintain an ideal body weight General No Sol House, RMMarlyn documented as of this encounter Visit Diagnoses Not on filedocumented in this encounter Care Teams Sueding And Buffing Machine Operator Relationship Specialty Start Date End Date Shameka Reese MD [address] [place] [address] PCP - General Family Medicine 05/19/16 documented as of this encounter
[2025-01-02 09:56] LABS: HCG Qualitative, Serum Negative (Negative)
[2025-01-02] MEDS: LACTATED RINGERS 1000ML 1,000 ML 999 ML IV (10:06)
[2025-01-02] MEDS: ONDANSETRON 4MG/2ML VIAL 4 MG IV (10:06)
[2025-01-02] MEDS: HYDROMORPHONE 2MG/ML SYRINGE 0.5 MG IV ×2 (10:07→11:04)
[2025-01-02 10:10] VITALS: BP 124/82; PULSE 98; O2SAT 100
--- NOTE | 2025-01-02 10:20 | PC.NURSE ---
IMAGES POWERSHARED WITH [facility]
--- NOTE | 2025-01-02 10:22 | PC.NURSE ---
Called [facility] for transfer. Images have been power shared.
[2025-01-02] MEDS: LEVOFLOXACIN/D5W 750 MG/150 ML 750 MG/150 ML PIGGYBACK 100 MG IV (10:25)
--- NOTE | 2025-01-02 10:40 | PC.NURSE ---
[facility] NOTIFIED OF TRANSFER
[2025-01-02 10:58] LABS: Bacteria,Urine 3+ /lpf; WBC,Urine TNTC #/hpf (0-3)
[2025-01-02 11:40] VITALS: BP 110/65; PULSE 74; RESP 16; TEMP 36.9; O2SAT 99
== END 2025-01-02 11:43 | disposition other institution (70) ==
PROVIDERS: Emergency Provider Student in an Organized Health Care Education/Training Program; PCP Family Medicine
DX: N13.0 Hydronephrosis with ureteropelvic junction obstruction (principal); N10 Acute pyelonephritis; R10.31 Right lower quadrant pain; N20.0 Calculus of kidney; R11.2 Nausea with vomiting, unspecified
CPT/HCPCS: 74176; 80053; 81001; 83690; 84703; 85025; 86140; 87040; 87086; 87088; 96361; 96365; 96375; 96376; 99285; J1171; J1956; J2405; J7120